=== PATIENT | female | born 1975 | race Caucasian/White ===

== ENCOUNTER 2018-02-20 03:53 | Inpatient (IN) | payer MEDICAID ==
[2018-02-20] MEDS ORDERED: Sodium Chloride 0.9% 1,000 ML IV ONE (04:30)
--- NOTE | 2018-02-20 04:38 | ED Physician Chart ---
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; pt denies Allergies:: Allergies Allergy/AdvReac Type Severity Reaction Status Date / Time aspirin Allergy Verified 02/20/18 04:12 diphenhydramine Allergy Verified 02/20/18 04:12 [From Benadryl] NSAIDS (Non-Steroidal Allergy Verified 02/20/18 04:12 Anti-Inflamma Vitals:: Vital Signs - 8 hr 02/20/18 03:55 Temp 97.9 F HR 68 RR 20 BP 146/95 O2 Sat % 99 Historian:: Patient, EMS Review:: Nurse's Note Reviewed, EMS run form Reviewed ED Review of Systems - Review of Systems General/Constitutional: No fever, No chills, No weight loss, No weakness, No diaphoresis, No edema, No loss of appetite Skin: No skin lesions, No rash, No bruising Head: No headache, No light-headedness Eyes: No loss of vision, No pain, No diplopia ENT: No earache, No nasal drainage, No sore throat, No tinnitus Neck: No neck pain, No swelling, No thyromegaly, No stiffness, No mass noted Cardio Vascular: No chest pain, No palpitations, No PND, No orthopnea, No edema Pulmonary: No SOB, No cough, No sputum, No wheezing GI: Nausea, Vomiting, Diarrhea, Pain, No melena, No hematochezia, No constipation, No hematemesis G/U: No dysuria, No frequency, No hematuria, No nacturia [employer]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: No vaginal discharge, Abnormal vaginal bleeding, No contraction Musculoskeletal: No bone or joint pain, No back pain, No muscle pain Endocrine: No polyuria, No polydipsia Psychiatric: No prior psych history, No depression, No anxiety, No suicidal ideation, No homicidal ideation, No auditory hallucination, No visual hallucination Hematopoietic: No bruising, No lymphadenopathy Allergic/Immuno: No urticaria, No angioedema Neurological: No syncope, No focal symptoms, No weakness, No paresthesia, No headache, No seizure, No dizziness, No confusion, No vertigo ED Past Medical History - Past Medical History Obtainable: Yes Past Medical History: Other (Endometriosis) Family History: HTN Social History: Non Smoker, No Alcohol, No Drug Use, Single, Homeless Surgical History: None Psychiatricy History: None Medication: Reviewed Family Medical History - Family Member Mother History Unknown: Yes ED Physical Exam - Physical Examination General/Constitutional: Awake, Well-developed, well-nourished, Alert, No distress, GCS 15, Non-toxic appearing, Ambulatory Head: Atraumatic Eyes: Lids, conjuctiva normal, PERRL, EOMI Skin: Nl inspection, No rash, No skin lesions, No ecchymosis, Well hydrated, No lymphadenopathy ENMT: External ears, nose nl, TM canals nl, Nasal exam nl, Lips, teeth, gums nl , Oropharynx nl, Tonsils nl Neck: Nontender, Full ROM w/o pain, No JVD, No nuchal rigidity, No bruit, No mass, No stridor Other Neck comments:: supple; no meningeal signs; no cervical tenderness; no bruits Respiratory: Nl effort/Exclusion, Clear to Auscultation, No Wheeze/Rhonchi/Rales Cardio Vascular: RRR, No murmur, gallop, rubs, NL S1 S2, Carotid/Femoral/Distal pulses equal bilaterally GI: No tenderness/rebounding/guarding, No organomegaly, No hernia, Normal BS's, Nondistended, No mass/bruits, No McBurney tenderness, Rectum exam nl Other GI comments:: no pulsatile masses : No CVA tenderness Extremities: No tenderness or effusion, Full ROM, normal strength in all extremities, No edema, Normal digits & nails Neuro/Psych: Alert/oriented, DTR's symmetric, Normal sensory exam, Normal motor strength, Judgement/insight normal, Mood normal, Normal gait, No focal deficits Misc: Normal back, No paraspinal tenderness ED Labs/Radiology/EKG Results - Lab Results Comments:: WBC: 2.0; HCG: Negative; LA: 2.0; H/H: + Anemia ED Septic Shock - . Is Septic Shock (SBP<90, OR Lactate>4 mmol\L) present?: No - <6hrs of presentation: Vital Signs: Vital Signs - 8 hr 02/20/18 03:55 Temp 97.9 F HR 68 RR 20 BP 146/95 O2 Sat % 99 ED Reassessment (Disposition) - Reassessment Reassessment Condition:: Improved - Diagnosis Diagnosis:: AGE; Dehydration; Sepsis; Anemia; Leukopenia; Gastroenteritis - Aftercare/Follow up Instructions Aftercare/Follow-Up Instructions:: Counseled pt regarding lab results/diagnosis & need follow up, Counseled pt & family regarding lab results/diagnosis & need follow up - Patient Disposition Discharge/Transfer:: Acute Care w/in this hosp Accepting Physician:: Dr. Razo Time Called:: [id number] Time Responded:: 05:50 Admitted to:: Med/Surg Spoke to:: Admitting Medical Physician:: Dr. Razo Condition at Disposition:: Stable, Improved
[2018-02-20 04:51] LABS: URINE MICROSCOPIC INDICATED? YES; URINE SOURCE CLEAN C
[2018-02-20 05:09] LABS: HEMATOCRIT 30.9 % (41.0-60); HEMOGLOBIN 10.2 gm/dL (12-16); MEAN CELL VOLUME 87.7 fl (81-100); MEAN CORPUSCULAR HEMOGLOBIN 28.9 pg (27.0-31.0); MEAN PLATELET VOLUME 5.9 fl; PLATELET COUNT 245 Th/cmm (150-400); RED BLOOD COUNT 3.52 Mil/cmm (3.80-5.10); RED CELL DISTRIBUTION WIDTH 16.6 % (11.5-20.0)
[2018-02-20 05:15] LABS: MANUAL DIFF REQUIRED? YES
[2018-02-20 05:17] LABS: AMYLASE SERUM 94 U/L (29-103); ANION GAP 18.4 (7.0-16.0); BUN - UREA NITROGEN 9 mg/dL (7-25); CALCIUM SERUM 9.4 mg/dL (8.6-10.3); CARBON DIOXIDE 24.2 mEq/L (21.0-31.0); CHLORIDE 99 mEq/L (98-107); CREATININE - SERUM 0.6 mg/dL (0.6-1.2); GFR AFRICAN-AMERICAN > 60.0 ml/min (>90); GFR NON AFRICAN-AMERICAN > 60.0 ml/min; GLUCOSE 107 mg/dL (70-105); LIPASE 82 U/L (11-82); POTASSIUM SERUM 3.6 mEq/L (3.5-5.1); SODIUM SERUM 138 mEq/L (136-145)
[2018-02-20 05:18] LABS: URINE BILIRUBIN NEGATIVE (NEGATIVE); URINE BLOOD NEGATIVE (NEGATIVE); URINE GLUCOSE (UA) NEGATIVE (NEGATIVE); URINE KETONE NEGATIVE (NEGATIVE); URINE LEUKOCYTE ESTERASE NEGATIVE (NEGATIVE); URINE NITRATE NEGATIVE (NEGATIVE); URINE PROTEIN TRACE mg/dL (NEGATIVE); URINE UROBILINOGEN 0.2 E.U./dL (0.2 - 1.0)
[2018-02-20 05:20] LABS: URINE CLARITY HAZY (CLEAR); URINE COLOR YELLOW; URINE RBC 0-2 /hpf (0-5)
[2018-02-20 05:21] LABS: URINE BACTERIA FEW /hpf (NONE SEEN); URINE EPITHELIAL CELLS FEW /lpf (FEW); URINE WBC 0-2 /hpf (0-5)
[2018-02-20 06:07] LABS: NEUTROPHILS 40 % (40-80); TOTAL CELLS COUNTED 100
[2018-02-20 06:08] LABS: EOSINOPHIL 4 % (0-5); LYMPHOCYTE 50 % (20-50); MONOCYTE 6 % (2-10)
[2018-02-20] MEDS ORDERED: cefTRIAXone 1 GM in Sodium Chloride 0.9% 50 ML IV ONE (06:22)
[2018-02-20] MEDS ORDERED: Morphine Sulfate 2 mg/mL 1mL Syr IV STA (06:26)
[2018-02-20] MEDS ORDERED: Morphine Sulfate 4 mg/mL 1mL Syr ONE (06:38)
--- NOTE | 2018-02-20 07:30 | Diagnostic Imaging Report ---
CHEST X-RAY: AP view INDICATION: Sepsis COMPARISON: None FINDINGS: There is mild elevation of right hemidiaphragm There is no focal consolidation or pleural effusions The heart is normal in size. The osseous structures demonstrate no acute abnormalities. IMPRESSION: No focal airspace consolidation identified.
--- NOTE | 2018-02-20 08:31 | Diagnostic Imaging Report ---
CT scan abdomen and pelvis without intravenous contrast HISTORY: Pain Total DLP equals 335 CTDI equals 6.9 Axial sections were obtained from the xiphoid process down to the pubic symphysis. The liver is enlarged. In addition, there is a decrease in overall hepatic parenchymal density consistent with fatty infiltration. The finding should be correlated with liver function tests. No focal lesions. The spleen appears normal. No focal abnormalities seen within the pancreas. No focal renal lesions are seen. Subcentimeter calcifications noted in the left paraspinal region. These appear to lie outside of the urinary tract. Again, no definite hydronephrosis. If needed a CT scan following administration of intravenous contrast via additional assessment of the relationship of the small calcifications to the left ureter. The exam of the pelvis demonstrates preservation of normal fat planes. Evaluation somewhat limited due to the absence of oral/bowel contrast. Poor delineation of the bowel wall margins. No definite abnormal soft tissue masses or abnormal fluid collections. IMPRESSION: 1. Hepatomegaly along with changes consistent with fatty infiltration. The finding should be correlated with liver function tests 2. 2 subcentimeter calcifications in the left paraspinal region. These appear to be in close proximity to the left ureter. However, as there is no hydronephrosis, these are probably vascular. If needed, a CT scan with intravenous contrast would provide additional assessment of the relationship of the calcifications to the left ureter.
[2018-02-20] MEDS ORDERED: Morphine Sulfate 4 mg/mL 1mL Syr IVP PRN (09:10)
[2018-02-20] MEDS: D5-0.45NS 1,000 ML IV SCH ×2 (10:30→21:17)
[2018-02-20] MEDS: Morphine Sulfate 4 mg/mL 1mL Syr IVP PRN ×2 (10:49→21:14)
[2018-02-20] MEDS: Morphine Sulfate 4 mg/mL 1mL Syr IV PRN (14:01)
[2018-02-20 14:07] LABS: AMPHETAMINE URINE NEGATIVE (NEGATIVE); BARBITURATES URINE NEGATIVE (NEGATIVE); BENZODIAZEPINES QUAL URINE NEGATIVE (NEGATIVE); CANNABINOID THC NEGATIVE (NEGATIVE); COCAINE METABOLITE QUAL URINE NEGATIVE (NEGATIVE); METHADONE URINE NEGATIVE (NEGATIVE); METHAMPHETAMINES QUAL URINE NEGATIVE (NEGATIVE); OPIATES (MORPHINE) QUAL. URINE POSITIVE (NEGATIVE); PHENCYCLIDINE (PCP) URINE NEGATIVE (NEGATIVE); TRICYCLICS (TCA) QUAL. URINE NEGATIVE (NEGATIVE)
[2018-02-20] MEDS: CALAMINE TP PRN ×2 (16:59→21:17)
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
--- NOTE | 2018-02-20 18:26 | Consultation ---
Consult Note - Consult Note Service Date: 02/20/18 Referring Physician: Tomasa Razo Consult Note: PHYSICIAN Consultation Note: Date of Admission: 02/20/18 Purpose of Consultation: Chief Complaint: Patient MACARIO GARRIDO was admitted to location Medical/Surgical Unit I with SEVERE GASTROENTERITIS,LEUKOPENIA,SEPSIS. History of Present Illness: 42 year old female with history of cirrhosis, homelessness, admitted for abdominal pain. Past Medical History: Cirrhosis. Allergies Allergy/AdvReac Type Severity Reaction Status Date / Time aspirin Allergy Verified 02/20/18 04:12 diphenhydramine Allergy Verified 02/20/18 04:12 [From Benadryl] NSAIDS (Non-Steroidal Allergy Verified 02/20/18 04:12 Anti-Inflamma Vital Signs Temp 97.8 F 02/20/18 12:33 Pulse 84 02/20/18 12:33 Resp 18 02/20/18 12:33 BP 147/92 02/20/18 12:33 Pulse Ox 100 02/20/18 12:33 Laboratory Results - last 24 hr 02/20/18 02/20/18 02/20/18 07:15 10:40 11:20 Whole Bld Lactic Acid 2.19 H* Urine Opiates Screen POSITIVE H Urine Methadone Screen NEGATIVE Ur Barbiturates Screen NEGATIVE Ur Tricyclics Screen NEGATIVE Ur Phencyclidine Scrn NEGATIVE Amphetamines Screen NEGATIVE U Methamphetamines Scrn NEGATIVE U Benzodiazepines Scrn NEGATIVE U Cocaine Metab Screen NEGATIVE U Cannabinoids Screen NEGATIVE Ethyl Alcohol 102 H Home Medication Medication Instructions Recorded Type NK [No Home Meds] 02/20/18 History Current Medications Generic Name Dose Route Start Last Admin Trade Name Freq PRN Reason Stop Dose Admin Calamine 1 appl 02/20/18 16:44 02/20/18 16:59 Calamine TP 04/21/18 16:43 1 appl Q4HR PRN Administration Itching Hydroxyzine HCl 20 mg 02/20/18 12:48 02/20/18 14:01 Atarax PO 04/21/18 12:47 20 mg Q8H PRN Administration Itching Protocol Ceftriaxone Sodium 1 gm/ 50 mls @ 100 mls/hr 02/21/18 06:00 Sodium Chloride IV 04/22/18 05:59 Q24H YRN Dextrose/Sodium Chloride 1,000 mls @ 125 mls/hr 02/20/18 09:15 02/20/18 10:30 D5-0.45ns IV 04/21/18 09:14 125 mls/hr .Q8H YRN Administration Lorazepam 1 mg 02/20/18 13:26 02/20/18 16:16 Ativan IVP 04/21/18 13:25 1 mg Q4HR PRN Administration Anxiety Protocol Morphine Sulfate 1 mg 02/20/18 09:11 02/20/18 10:49 Morphine IVP 04/21/18 09:10 1 mg Q3H PRN Administration MODERATE PAIN Morphine Sulfate 4 mg 02/20/18 13:25 02/20/18 14:01 Morphine IV 04/21/18 13:24 4 mg Q6HR PRN Administration Severe Pain Ondansetron HCl 4 mg 02/20/18 09:14 02/20/18 10:52 Zofran IV 04/21/18 09:13 4 mg Q6H PRN Administration Nausea / Vomiting Review of Systems: A 12 point ROS was reviewed with the pertinent positive and negatives noted in the HPI. Social History Smoking Status Never smoker Drug Use No Alcohol Use yes Family Medical History Physical Exam: General: comfortable, not in distress. HEENT: Head: normocephalic, atraumatic. oral cavity moist pink tongue, eyes: pallor is present. Neck: Supple, no JVD, no carotid bruit. Cardio: S1, S2 wnl. Respiratory: VESICUALR BREATH SOUNDS. Abdominal: Soft NT ND BS present. Genital/Urinary: Extremities: NCCE. Neurological: AAOx3 Assessment: 1. Neutropenia. 2. Anemia. 3. Cirrhosis. Plan: Will continue same treatment. Patient refused blood transfusion. Signed, Harman Gunderson M.D. [id number]
[2018-02-21] MEDS: Morphine Sulfate 4 mg/mL 1mL Syr IV PRN ×2 (03:31→19:57)
[2018-02-21] MEDS: CALAMINE TP PRN (03:33)
[2018-02-21] MEDS: cefTRIAXone 1 GM in Sodium Chloride 0.9% 50 ML IV SCH (06:03)
[2018-02-21] MEDS: D5-0.45NS 1,000 ML IV SCH ×3 (06:03→19:56)
[2018-02-21 06:25] LABS: HEMATOCRIT 30.3 % (41.0-60); HEMOGLOBIN 9.7 gm/dL (12-16); MANUAL DIFF REQUIRED? YES; MEAN CELL VOLUME 87.6 fl (81-100); MEAN PLATELET VOLUME 6.1 fl; PLATELET COUNT 201 Th/cmm (150-400); RED BLOOD COUNT 3.46 Mil/cmm (3.80-5.10)
[2018-02-21 06:34] LABS: WHITE BLOOD COUNT 2.2 Th/cmm (4.8-10.8)
[2018-02-21 06:40] LABS: ALB/GLOB RATIO 1.4 (1.0-1.8); ALBUMIN 3.8 gm/dL (3.7-5.3); ALKALINE PHOSPHATASE 62 U/L (34-104); ANION GAP 11.1 (7.0-16.0); BILIRUBIN,TOTAL 0.5 mg/dL (0.3-1.0); BUN - UREA NITROGEN 6 mg/dL (7-25); CALCIUM SERUM 9.3 mg/dL (8.6-10.3); CARBON DIOXIDE 28.9 mEq/L (21.0-31.0); CHLORIDE 98 mEq/L (98-107); CREATININE - SERUM 0.7 mg/dL (0.6-1.2); GFR AFRICAN-AMERICAN > 60.0 ml/min (>90); GFR NON AFRICAN-AMERICAN > 60.0 ml/min; GLUCOSE 97 mg/dL (70-105); LIPASE 59 U/L (11-82); SGOT 78 U/L (13-39); SGPT/ALT 29 U/L (7-52); SODIUM SERUM 134 mEq/L (136-145); TOTAL PROTEIN,SERUM 6.6 gm/dL (6.0-8.3)
[2018-02-21 06:53] LABS: BILIRUBIN,DIRECT 0.09 mg/dL (0.0-0.2)
[2018-02-21 07:19] LABS: BAND NEUTROPHILE 0 % (0-10); NEUTROPHILS 30 % (40-80); TOTAL CELLS COUNTED 100
[2018-02-21 07:20] LABS: ATYPICAL LYMPH 4 %; BASOPHIL 0 % (0-3); EOSINOPHIL 2 % (0-5); LYMPHOCYTE 50 % (20-50); MONOCYTE 14 % (2-10)
[2018-02-21 13:09] LABS: HEP A AB IGM Negative (Negative); HEP B CORE IGM Negative (Negative); HEP B SURFACE AG QL Negative (Negative); HEP C ANTIBODY <0.1 s/co ratio (0.0-0.9)
--- NOTE | 2018-02-21 13:11 | History & Physical ---
ADMIT DATE: 02/20/2018 HISTORY OF PRESENT ILLNESS: The patient came to the Emergency Room complaining of intermittent, diffuse, crampy abdominal pain, nausea, vomiting, and diarrhea for the last 10 days. The patient denies any history of trauma, any history of neck pain, chest pain, etc. The patient has no other problem. The patient last menstruation was 02/07/2018. The patient is a poor historian. REVIEW OF SYSTEMS: No fever, no chills, no rigors. The patient mainly has nausea, vomiting, diarrhea and the patient has no bony pain, etc. The patient has no syncope. PAST MEDICAL HISTORY: History of hypertension, otherwise negative. PHYSICAL EXAMINATION: GENERAL: The patient is awake, alert, not in acute distress, seems to be slightly dehydrated. HEAD: Normal. ENT: Normal. LUNGS: Clear. CARDIOVASCULAR SYSTEM: S1, S2 heard. ABDOMEN: Soft. Bowel sounds are heard. CENTRAL NERVOUS SYSTEM: Grossly normal. LABORATORY AND DIAGNOSTIC DATA: White count is low, actually 2.0 and the patient's blood count was low indicating anemia. DIAGNOSES: Acute and severe gastroenteritis, dehydration, , leukopenia, cirrhosis of the liver. PLAN: The patient is being admitted and I will go ahead and get GI doctor see the patient as well as I will have Dr. Harman Gunderson see the patient and I will follow the patient. I will also have Dr. Orellana see the patient. JOB# [id number]
[2018-02-21] MEDS: Nystatin Cream 100,000 u/gm Cream 15 gm TP SCH (14:06)
[2018-02-21] MEDS: Morphine Sulfate 4 mg/mL 1mL Syr IVP PRN (14:13)
--- NOTE | 2018-02-21 19:27 | Infectious Disease Prog Note ---
Infectious Disease Subjective - Review of Systems Service Date: 02/21/18 Events since last encounter: No new change, no fever. Subjective: No fever. Infectious Disease Objective - Results Result Diagrams: 02/24/18 05:45 02/23/18 05:15 Recent Labs: Laboratory Last Values WBC 2.2 Th/cmm (4.8-10.8) L* 02/21/18 06:02 RBC 3.46 Mil/cmm (3.80-5.10) L 02/21/18 06:02 Hgb 9.7 gm/dL (12-16) L 02/21/18 06:02 Hct 30.3 % (41.0-60) L 02/21/18 06:02 MCV 87.6 fl (81-100) 02/21/18 06:02 MCH 28.0 pg (27.0-31.0) 02/21/18 06:02 MCHC Differential 32.0 pg (28.0-36.0) 02/21/18 06:02 RDW 16.0 % (11.5-20.0) 02/21/18 06:02 Plt Count 201 Th/cmm (150-400) 02/21/18 06:02 MPV 6.1 fl 02/21/18 06:02 Band Neutrophils % 0 % (0-10) 02/21/18 06:02 Neutrophils (Manual) 30 % (40-80) L 02/21/18 06:02 Lymphocytes 50 % (20-50) 02/21/18 06:02 Monocytes 14 % (2-10) H 02/21/18 06:02 Eosinophils 2 % (0-5) 02/21/18 06:02 Basophils 0 % (0-3) 02/21/18 06:02 Atypical Lymphocytes 4 % 02/21/18 06:02 Sodium 134 mEq/L (136-145) L 02/21/18 06:02 Potassium 4.0 mEq/L (3.5-5.1) 02/21/18 06:02 Chloride 98 mEq/L (98-107) 02/21/18 06:02 Carbon Dioxide 28.9 mEq/L (21.0-31.0) 02/21/18 06:02 Anion Gap 11.1 (7.0-16.0) 02/21/18 06:02 BUN 6 mg/dL (7-25) L 02/21/18 06:02 Creatinine 0.7 mg/dL (0.6-1.2) 02/21/18 06:02 Est GFR ( Amer) > 60.0 ml/min (>90) 02/21/18 06:02 Est GFR (Non-Af Amer) > 60.0 ml/min 02/21/18 06:02 BUN/Creatinine Ratio 8.6 02/21/18 06:02 Glucose 97 mg/dL (70-105) 02/21/18 06:02 Whole Bld Lactic Acid 2.19 mmol/L (0.60-1.99) H* 02/20/18 07:15 Calcium 9.3 mg/dL (8.6-10.3) 02/21/18 06:02 Total Bilirubin 0.5 mg/dL (0.3-1.0) 02/21/18 06:02 Direct Bilirubin 0.09 mg/dL (0.0-0.2) 02/21/18 06:02 AST 78 U/L (13-39) H 02/21/18 06:02 ALT 29 U/L (7-52) 02/21/18 06:02 Alkaline Phosphatase 62 U/L (34-104) 02/21/18 06:02 Total Protein 6.6 gm/dL (6.0-8.3) 02/21/18 06:02 Albumin 3.8 gm/dL (3.7-5.3) 02/21/18 06:02 Globulin 2.8 gm/dL 02/21/18 06:02 Albumin/Globulin Ratio 1.4 (1.0-1.8) 02/21/18 06:02 Amylase 94 U/L (29-103) 02/20/18 04:40 Lipase 59 U/L (11-82) 02/21/18 06:02 Serum , Qual NEGATIVE (NEGATIVE) 02/20/18 04:40 Urine Source CLEAN C 02/20/18 04:00 Urine Color YELLOW 02/20/18 04:00 Urine Clarity HAZY (CLEAR) 02/20/18 04:00 Urine pH 6.0 (4.6 - 8.0) 02/20/18 04:00 Ur Specific [place] >= 1.030 (1.005-1.030) 02/20/18 04:00 Urine Protein TRACE mg/dL (NEGATIVE) 02/20/18 04:00 Urine Glucose (UA) NEGATIVE mg/dL (NEGATIVE) 02/20/18 04:00 Urine Ketones NEGATIVE mg/dL (NEGATIVE) 02/20/18 04:00 Urine Blood NEGATIVE (NEGATIVE) 02/20/18 04:00 Urine Nitrate NEGATIVE (NEGATIVE) 02/20/18 04:00 Urine Bilirubin NEGATIVE (NEGATIVE) 02/20/18 04:00 Urine Urobilinogen 0.2 E.U./dL (0.2 - 1.0) 02/20/18 04:00 Ur Leukocyte Esterase NEGATIVE (NEGATIVE) 02/20/18 04:00 Urine RBC 0-2 /hpf (0-5) 02/20/18 04:00 Urine WBC 0-2 /hpf (0-5) 02/20/18 04:00 Ur Epithelial Cells FEW /lpf (FEW) 02/20/18 04:00 Calcium Oxalate Crystal MANY /hpf 02/20/18 04:00 Urine Bacteria FEW /hpf (NONE SEEN) 02/20/18 04:00 Urine Opiates Screen POSITIVE (NEGATIVE) H 02/20/18 11:20 Urine Methadone Screen NEGATIVE (NEGATIVE) 02/20/18 11:20 Ur Barbiturates Screen NEGATIVE (NEGATIVE) 02/20/18 11:20 Ur Tricyclics Screen NEGATIVE (NEGATIVE) 02/20/18 11:20 Ur Phencyclidine Scrn NEGATIVE (NEGATIVE) 02/20/18 11:20 Amphetamines Screen NEGATIVE (NEGATIVE) 02/20/18 11:20 U Methamphetamines Scrn NEGATIVE (NEGATIVE) 02/20/18 11:20 U Benzodiazepines Scrn NEGATIVE (NEGATIVE) 02/20/18 11:20 U Cocaine Metab Screen NEGATIVE (NEGATIVE) 02/20/18 11:20 U Cannabinoids Screen NEGATIVE (NEGATIVE) 02/20/18 11:20 Ethyl Alcohol 102 mg/dL (0-10) H 02/20/18 10:40 RPR NONREACTIVE (NONREACTIVE) 02/20/18 10:40 Hepatitis A IgM Ab Negative (Negative) 02/20/18 10:40 Hep Bs Antigen Negative (Negative) 02/20/18 10:40 Hep B Core IgM Ab Negative (Negative) 02/20/18 10:40 Hepatitis C Antibody <0.1 s/co ratio (0.0-0.9) 02/20/18 10:40 HIV 1&2 Antibody Screen NEGATIVE (NEG) 02/20/18 04:40 - Physical Exam Vitals and I&O: Vital Signs Temp 98.8 F 02/21/18 16:00 Pulse 85 02/21/18 16:00 Resp 18 02/21/18 16:00 BP 143/89 02/21/18 16:00 Pulse Ox 100 02/21/18 12:34 Intake & Output 02/21/18 02/21/18 02/22/18 06:59 18:59 06:59 Intake Total 1000 1000 Balance 1000 1000 Weight (lbs) 55.338 kg Intake: Intake, IV Amount 1000 1000 D5-0.45NS 1,000 ml @ 125 1000 1000 mls/hr IV .Q8H YRN Rx#: [id number] Other: Weight Source Patient stated Active Medications: Current Medications Alprazolam (Xanax) 0.25 mg PO Q6HR PRN; Protocol PRN Reason: Anxiety Stop: 04/21/18 18:23 Calamine (Calamine) 1 appl TP Q4HR PRN PRN Reason: Itching Stop: 04/21/18 16:43 Last Admin: 02/21/18 03:33 Dose: 1 appl Hydroxyzine HCl (Atarax) 20 mg PO Q8H PRN; Protocol PRN Reason: Itching Stop: 04/21/18 12:47 Last Admin: 02/21/18 00:45 Dose: 20 mg Ceftriaxone Sodium 1 gm/ (Sodium Chloride) 50 mls @ 100 mls/hr IV Q24H YRN Stop: 04/22/18 05:59 Last Admin: 02/21/18 06:03 Dose: 100 mls/hr Dextrose/Sodium Chloride (D5-0.45ns) 1,000 mls @ 125 mls/hr IV .Q8H YRN Stop: 04/21/18 09:14 Last Admin: 02/21/18 14:06 Dose: 125 mls/hr Lorazepam (Ativan) 1 mg IVP Q4HR PRN; Protocol PRN Reason: Anxiety Stop: 04/21/18 13:25 Last Admin: 02/21/18 00:53 Dose: 1 mg Morphine Sulfate (Morphine) 1 mg IVP Q3H PRN PRN Reason: MODERATE PAIN Stop: 04/21/18 09:10 Last Admin: 02/21/18 14:13 Dose: 1 mg Morphine Sulfate (Morphine) 4 mg IV Q6HR PRN PRN Reason: Severe Pain Stop: 04/21/18 13:24 Last Admin: 02/21/18 03:31 Dose: 4 mg Nystatin (Mycostatin Cream) 1 appl TP DAILY YRN Stop: 04/22/18 08:59 Last Admin: 02/21/18 14:06 Dose: 1 appl Ondansetron HCl (Zofran) 4 mg IV Q6H PRN PRN Reason: Nausea / Vomiting Stop: 04/21/18 09:13 Last Admin: 02/21/18 14:05 Dose: 4 mg General: no acute distress, well developed, well nourished HEENT: atraumatic, normocephalic, PERRLA Neck: supple, no thyromegaly Cardiovascular: S1S2, regular Lungs: clear to auscultation bilaterally, clear to percussion Abdomen: soft, no tender, no distended Extremities: no cyanosis, no clubbing, no edema Neurological: awake, alert, oriented Infectious Disease Assmt/Plan - Assessment Assessment: 1. Neutropenia. 2. Anemia. 3. Cirrhosis. - Plan Plan: CPM Nutritional Asmnt/Malnutr-PDOC - Dietary Evaluation Malnutrition Findings (Please click <Entered> for more info): Nutritional Asmnt/Malnutrition Start: 02/20/18 15: 00 Text: Status: Complete Freq: Document 02/20/18 15:00 JOLEEN (Rec: 02/20/18 15:19 [facility]) Nutritional Asmnt/Malnutrition Patient General Information Nutritional Screening High Risk Diagnosis severe gastroenteritis, leukopenia, sepsis Pertinent Medical Hx/Surgical Hx HTN Subjective Information Pt seen sitting on bed at time of visit, awake and alert. Pt reported she had diffulculty of taking down food. She tried to consumed half of lunch tray. Pt reported some N/V after taking food. Pt has concern of nutrition intake. Offered pt Boost per pt request in the afternoon. Current Diet Order/ Nutrition Support [facility] chopped Pertinent Medications D5-0.45ns, zofran Pertinent Labs 02/20 glucose 107 Nutritional Hx/Data Height 1.68 m Height (Calculated Centimeters) 167.6 Current Weight (lbs) 55.338 kg Weight (Calculated Kilograms) 55.3 Weight (Calculated Grams) 70691.3 [place] Body Weight 130 Body Mass Index (BMI) 19.7 Weight Status Approriate GI Symptoms GI Symptoms Nausea Vomitting Last BM no record Difficult in: None Skin Integrity/Comment: facial abrasion and scars Current %PO Poor (25-49%) Estimated Nutritional Goals BEE in Kcals: Using Current wt Calories/Kcals/Kg 25-30 Kcals Calculated [id number] Protein: Using Current wt Protein g/k-1.2 Protein Calculated 55-66 Fluid: ml 1375-1650ml (1ml/kcal) Nutritional Problem 1. Problem Problem inadequate food intake Etiology N/V Signs/Symptoms: PO intake <=50% Malnutrition Alert Protein-Calorie Malnutrition N/A Is there a minimum of two criteria No selected? Query Text:Check all the applicable criteria. A minimum of two criteria are recommended for diagnosis of either severe or non-severe malnutrition. Intervention/Recommendation Comments 1. Continue with current diet as ordered. If pt likes boost, will continue sending with meal tray. 2. Monitor PO intake, wt, labs and skin integrity 3. F/U as high risk in 2-3 days, 02/22-02/23 Expected Outcomes/Goals Expected Outcomes/Goals 1. PO intake to meet at least 75% of nutritional needs. 2. Wt stability, skin to heal, improved GI function, labs to approach WNL.
[2018-02-22] MEDS: Morphine Sulfate 4 mg/mL 1mL Syr IVP PRN ×2 (02:47→10:07)
[2018-02-22] MEDS: cefTRIAXone 1 GM in Sodium Chloride 0.9% 50 ML IV SCH (06:07)
[2018-02-22] MEDS: D5-0.45NS 1,000 ML IV SCH ×2 (06:08→17:54)
[2018-02-22 08:14] LABS: HEMOGLOBIN 10.4 gm/dL (12-16); MANUAL DIFF REQUIRED? YES; MEAN CELL VOLUME 87.5 fl (81-100); MEAN CORPUSCULAR HEMOGLOBIN 29.3 pg (27.0-31.0); MEAN CORPUSCULAR HGB CONC 33.5 pg (28.0-36.0); MEAN PLATELET VOLUME 6.4 fl; PLATELET COUNT 217 Th/cmm (150-400); RED BLOOD COUNT 3.55 Mil/cmm (3.80-5.10); RED CELL DISTRIBUTION WIDTH 15.6 % (11.5-20.0)
[2018-02-22 08:17] LABS: WHITE BLOOD COUNT 2.3 Th/cmm (4.8-10.8)
[2018-02-22 08:33] LABS: ANION GAP 10.6 (7.0-16.0); BUN - UREA NITROGEN 9 mg/dL (7-25); CALCIUM SERUM 9.1 mg/dL (8.6-10.3); CARBON DIOXIDE 28.8 mEq/L (21.0-31.0); CHLORIDE 100 mEq/L (98-107); CREATININE - SERUM 0.8 mg/dL (0.6-1.2); GFR AFRICAN-AMERICAN > 60.0 ml/min (>90); GFR NON AFRICAN-AMERICAN > 60.0 ml/min; GLUCOSE 109 mg/dL (70-105); POTASSIUM SERUM 4.4 mEq/L (3.5-5.1); SODIUM SERUM 135 mEq/L (136-145)
[2018-02-22 08:40] LABS: BAND NEUTROPHILE 2 % (0-10); BASOPHIL 0 % (0-3); EOSINOPHIL 2 % (0-5); LYMPHOCYTE 48 % (20-50); MONOCYTE 10 % (2-10); NEUTROPHILS 38 % (40-80); TOTAL CELLS COUNTED 100
--- NOTE | 2018-02-22 09:37 | Diagnostic Imaging Report ---
Abdominal ultrasound HISTORY: Nausea/vomiting The liver appears enlarged. There is an increase in overall hepatic parenchymal echogenicity. The finding may be associated with fatty infiltration and should be correlated with liver function tests. No focal lesions. There is an elongated gallbladder. No definite intraluminal abnormalities are seen. Cystic, no definite calculi. No biliary dilatation. Pancreas not well seen due to bowel gas. No focal renal lesions or hydronephrosis. The spleen is normal in size. No other retroperitoneal or intra-abdominal abnormalities. IMPRESSION: 1. Hepatomegaly along with parenchymal changes suggesting fatty infiltration. The findings should be correlated with liver function tests 2. No other definite abnormalities
[2018-02-22] MEDS: Nystatin Cream 100,000 u/gm Cream 15 gm TP SCH (10:07)
--- NOTE | 2018-02-22 12:15 | General Progress Note ---
Subjective - Review of Systems Events since last encounter: patient in no acute distress Objective - Results Result Diagrams: 02/22/18 07:55 02/22/18 07:55 Recent Labs: Laboratory Last Values WBC 2.3 Th/cmm (4.8-10.8) L* 02/22/18 07:55 RBC 3.55 Mil/cmm (3.80-5.10) L 02/22/18 07:55 Hgb 10.4 gm/dL (12-16) L 02/22/18 07:55 Hct 31.0 % (41.0-60) L 02/22/18 07:55 MCV 87.5 fl (81-100) 02/22/18 07:55 MCH 29.3 pg (27.0-31.0) 02/22/18 07:55 MCHC Differential 33.5 pg (28.0-36.0) 02/22/18 07:55 RDW 15.6 % (11.5-20.0) 02/22/18 07:55 Plt Count 217 Th/cmm (150-400) 02/22/18 07:55 MPV 6.4 fl 02/22/18 07:55 Band Neutrophils % 2 % (0-10) 02/22/18 07:55 Neutrophils (Manual) 38 % (40-80) L 02/22/18 07:55 Lymphocytes 48 % (20-50) 02/22/18 07:55 Monocytes 10 % (2-10) 02/22/18 07:55 Eosinophils 2 % (0-5) 02/22/18 07:55 Basophils 0 % (0-3) 02/22/18 07:55 Atypical Lymphocytes 4 % 02/21/18 06:02 Sodium 135 mEq/L (136-145) L 02/22/18 07:55 Potassium 4.4 mEq/L (3.5-5.1) 02/22/18 07:55 Chloride 100 mEq/L (98-107) 02/22/18 07:55 Carbon Dioxide 28.8 mEq/L (21.0-31.0) 02/22/18 07:55 Anion Gap 10.6 (7.0-16.0) 02/22/18 07:55 BUN 9 mg/dL (7-25) 02/22/18 07:55 Creatinine 0.8 mg/dL (0.6-1.2) 02/22/18 07:55 Est GFR ( Amer) > 60.0 ml/min (>90) 02/22/18 07:55 Est GFR (Non-Af Amer) > 60.0 ml/min 02/22/18 07:55 BUN/Creatinine Ratio 11.3 02/22/18 07:55 Glucose 109 mg/dL (70-105) H 02/22/18 07:55 Whole Bld Lactic Acid 2.19 mmol/L (0.60-1.99) H* 02/20/18 07:15 Calcium 9.1 mg/dL (8.6-10.3) 02/22/18 07:55 Total Bilirubin 0.5 mg/dL (0.3-1.0) 02/21/18 06:02 Direct Bilirubin 0.09 mg/dL (0.0-0.2) 02/21/18 06:02 AST 78 U/L (13-39) H 02/21/18 06:02 ALT 29 U/L (7-52) 02/21/18 06:02 Alkaline Phosphatase 62 U/L (34-104) 02/21/18 06:02 Total Protein 6.6 gm/dL (6.0-8.3) 02/21/18 06:02 Albumin 3.8 gm/dL (3.7-5.3) 02/21/18 06:02 Globulin 2.8 gm/dL 02/21/18 06:02 Albumin/Globulin Ratio 1.4 (1.0-1.8) 02/21/18 06:02 Amylase 94 U/L (29-103) 02/20/18 04:40 Lipase 59 U/L (11-82) 02/21/18 06:02 Serum , Qual NEGATIVE (NEGATIVE) 02/20/18 04:40 Urine Source CLEAN C 02/20/18 04:00 Urine Color YELLOW 02/20/18 04:00 Urine Clarity HAZY (CLEAR) 02/20/18 04:00 Urine pH 6.0 (4.6 - 8.0) 02/20/18 04:00 Ur Specific [place] >= 1.030 (1.005-1.030) 02/20/18 04:00 Urine Protein TRACE mg/dL (NEGATIVE) 02/20/18 04:00 Urine Glucose (UA) NEGATIVE mg/dL (NEGATIVE) 02/20/18 04:00 Urine Ketones NEGATIVE mg/dL (NEGATIVE) 02/20/18 04:00 Urine Blood NEGATIVE (NEGATIVE) 02/20/18 04:00 Urine Nitrate NEGATIVE (NEGATIVE) 02/20/18 04:00 Urine Bilirubin NEGATIVE (NEGATIVE) 02/20/18 04:00 Urine Urobilinogen 0.2 E.U./dL (0.2 - 1.0) 02/20/18 04:00 Ur Leukocyte Esterase NEGATIVE (NEGATIVE) 02/20/18 04:00 Urine RBC 0-2 /hpf (0-5) 02/20/18 04:00 Urine WBC 0-2 /hpf (0-5) 02/20/18 04:00 Ur Epithelial Cells FEW /lpf (FEW) 02/20/18 04:00 Calcium Oxalate Crystal MANY /hpf 02/20/18 04:00 Urine Bacteria FEW /hpf (NONE SEEN) 02/20/18 04:00 Urine Opiates Screen POSITIVE (NEGATIVE) H 02/20/18 11:20 Urine Methadone Screen NEGATIVE (NEGATIVE) 02/20/18 11:20 Ur Barbiturates Screen NEGATIVE (NEGATIVE) 02/20/18 11:20 Ur Tricyclics Screen NEGATIVE (NEGATIVE) 02/20/18 11:20 Ur Phencyclidine Scrn NEGATIVE (NEGATIVE) 02/20/18 11:20 Amphetamines Screen NEGATIVE (NEGATIVE) 02/20/18 11:20 U Methamphetamines Scrn NEGATIVE (NEGATIVE) 02/20/18 11:20 U Benzodiazepines Scrn NEGATIVE (NEGATIVE) 02/20/18 11:20 U Cocaine Metab Screen NEGATIVE (NEGATIVE) 02/20/18 11:20 U Cannabinoids Screen NEGATIVE (NEGATIVE) 02/20/18 11:20 Ethyl Alcohol 102 mg/dL (0-10) H 02/20/18 10:40 RPR NONREACTIVE (NONREACTIVE) 02/20/18 10:40 Hepatitis A IgM Ab Negative (Negative) 02/20/18 10:40 Hep Bs Antigen Negative (Negative) 02/20/18 10:40 Hep B Core IgM Ab Negative (Negative) 02/20/18 10:40 Hepatitis C Antibody <0.1 s/co ratio (0.0-0.9) 02/20/18 10:40 HIV 1&2 Antibody Screen NEGATIVE (NEG) 02/20/18 04:40 - Physical Exam Vitals and I&O: Vital Signs Temp 98.3 F 02/22/18 08:00 Pulse 71 02/22/18 08:00 Resp 20 02/22/18 08:00 BP 135/82 02/22/18 08:00 Pulse Ox 96 02/22/18 08:00 Intake & Output 02/21/18 02/22/18 02/22/18 18:59 06:59 18:59 Intake Total 1000 2229.167 Output Total 4 Balance 1000 2225.167 Weight (lbs) 55.338 kg 55.338 kg Intake: Intake, IV Amount 1000 1729.167 D5-0.45NS 1,000 ml @ 125 1000 1729.167 mls/hr IV .Q8H YRN Rx#: [id number] Oral 500 Output: Urine 4 Other: # Bowel Movements 1 Weight Source Patient stated Bedscale Active Medications: Current Medications Alprazolam (Xanax) 0.25 mg PO Q6HR PRN; Protocol PRN Reason: Anxiety Stop: 04/21/18 18:23 Calamine (Calamine) 1 appl TP Q4HR PRN PRN Reason: Itching Stop: 04/21/18 16:43 Last Admin: 02/21/18 03:33 Dose: 1 appl Dicyclomine HCl (Bentyl) 20 mg PO BID YRN Stop: 04/23/18 16:59 Hydroxyzine HCl (Atarax) 20 mg PO Q8H PRN; Protocol PRN Reason: Itching Stop: 04/21/18 12:47 Last Admin: 02/22/18 06:07 Dose: 20 mg Ceftriaxone Sodium 1 gm/ (Sodium Chloride) 50 mls @ 100 mls/hr IV Q24H YRN Stop: 04/22/18 05:59 Last Admin: 02/22/18 06:07 Dose: 100 mls/hr Dextrose/Sodium Chloride (D5-0.45ns) 1,000 mls @ 125 mls/hr IV .Q8H YRN Stop: 04/21/18 09:14 Last Admin: 02/22/18 06:08 Dose: 125 mls/hr Lorazepam (Ativan) 1 mg IVP Q4HR PRN; Protocol PRN Reason: Anxiety Stop: 04/21/18 13:25 Last Admin: 02/22/18 06:05 Dose: 1 mg Morphine Sulfate (Morphine) 1 mg IVP Q3H PRN PRN Reason: MODERATE PAIN Stop: 04/21/18 09:10 Last Admin: 02/22/18 10:07 Dose: 1 mg Morphine Sulfate (Morphine) 4 mg IV Q6HR PRN PRN Reason: Severe Pain Stop: 04/21/18 13:24 Last Admin: 02/21/18 19:57 Dose: 4 mg Nystatin (Mycostatin Cream) 1 appl TP DAILY YRN Stop: 04/22/18 08:59 Last Admin: 02/22/18 10:07 Dose: 1 appl Ondansetron HCl (Zofran) 4 mg IV Q6H PRN PRN Reason: Nausea / Vomiting Stop: 04/21/18 09:13 Last Admin: 02/22/18 10:04 Dose: 4 mg Nutritional Asmnt/Malnutr-PDOC - Dietary Evaluation Malnutrition Findings (Please click <Entered> for more info): Nutritional Asmnt/Malnutrition Start: 02/20/18 15: 00 Text: Status: Complete Freq: Document 02/20/18 15:00 [facility] (Rec: 02/20/18 15:19 [email or web address] [email or web address]) Nutritional Asmnt/Malnutrition Patient General Information Nutritional Screening High Risk Diagnosis severe gastroenteritis, leukopenia, sepsis Pertinent Medical Hx/Surgical Hx HTN Subjective Information Pt seen sitting on bed at time of visit, awake and alert. Pt reported she had diffulculty of taking down food. She tried to consumed half of lunch tray. Pt reported some N/V after taking food. Pt has concern of nutrition intake. Offered pt Boost per pt request in the afternoon. Current Diet Order/ Nutrition Support [facility] chopped Pertinent Medications D5-0.45ns, zofran Pertinent Labs 02/20 glucose 107 Nutritional Hx/Data Height 1.68 m Height (Calculated Centimeters) 167.6 Current Weight (lbs) 55.338 kg Weight (Calculated Kilograms) 55.3 Weight (Calculated Grams) 96967.3 [place] Body Weight 130 Body Mass Index (BMI) 19.7 Weight Status Approriate GI Symptoms GI Symptoms Nausea Vomitting Last BM no record Difficult in: None Skin Integrity/Comment: facial abrasion and scars Current %PO Poor (25-49%) Estimated Nutritional Goals BEE in Kcals: Using Current wt Calories/Kcals/Kg 25-30 Kcals Calculated 2913-2178 Protein: Using Current wt Protein g/k-1.2 Protein Calculated 55-66 Fluid: ml 1375-1650ml (1ml/kcal) Nutritional Problem 1. Problem Problem inadequate food intake Etiology N/V Signs/Symptoms: PO intake <=50% Malnutrition Alert Protein-Calorie Malnutrition N/A Is there a minimum of two criteria No selected? Query Text:Check all the applicable criteria. A minimum of two criteria are recommended for diagnosis of either severe or non-severe malnutrition. Intervention/Recommendation Comments 1. Continue with current diet as ordered. If pt likes boost, will continue sending with meal tray. 2. Monitor PO intake, wt, labs and skin integrity 3. F/U as high risk in 2-3 days, 02/22-02/23 Expected Outcomes/Goals Expected Outcomes/Goals 1. PO intake to meet at least 75% of nutritional needs. 2. Wt stability, skin to heal, improved GI function, labs to approach WNL.
[2018-02-22] MEDS: Dicyclomine 10 mg Cap PO SCH (17:50)
[2018-02-22] MEDS: Morphine Sulfate 4 mg/mL 1mL Syr IV PRN (19:54)
--- NOTE | 2018-02-22 23:36 | Infectious Disease Prog Note ---
Infectious Disease Subjective - Review of Systems Service Date: 02/22/18 Subjective: doing well. Infectious Disease Objective - Results Result Diagrams: 02/23/18 05:15 02/23/18 05:15 Recent Labs: Laboratory Last Values WBC 2.3 Th/cmm (4.8-10.8) L* 02/22/18 07:55 RBC 3.55 Mil/cmm (3.80-5.10) L 02/22/18 07:55 Hgb 10.4 gm/dL (12-16) L 02/22/18 07:55 Hct 31.0 % (41.0-60) L 02/22/18 07:55 MCV 87.5 fl (81-100) 02/22/18 07:55 MCH 29.3 pg (27.0-31.0) 02/22/18 07:55 MCHC Differential 33.5 pg (28.0-36.0) 02/22/18 07:55 RDW 15.6 % (11.5-20.0) 02/22/18 07:55 Plt Count 217 Th/cmm (150-400) 02/22/18 07:55 MPV 6.4 fl 02/22/18 07:55 Band Neutrophils % 2 % (0-10) 02/22/18 07:55 Neutrophils (Manual) 38 % (40-80) L 02/22/18 07:55 Lymphocytes 48 % (20-50) 02/22/18 07:55 Monocytes 10 % (2-10) 02/22/18 07:55 Eosinophils 2 % (0-5) 02/22/18 07:55 Basophils 0 % (0-3) 02/22/18 07:55 Atypical Lymphocytes 4 % 02/21/18 06:02 Sodium 135 mEq/L (136-145) L 02/22/18 07:55 Potassium 4.4 mEq/L (3.5-5.1) 02/22/18 07:55 Chloride 100 mEq/L (98-107) 02/22/18 07:55 Carbon Dioxide 28.8 mEq/L (21.0-31.0) 02/22/18 07:55 Anion Gap 10.6 (7.0-16.0) 02/22/18 07:55 BUN 9 mg/dL (7-25) 02/22/18 07:55 Creatinine 0.8 mg/dL (0.6-1.2) 02/22/18 07:55 Est GFR ( Amer) > 60.0 ml/min (>90) 02/22/18 07:55 Est GFR (Non-Af Amer) > 60.0 ml/min 02/22/18 07:55 BUN/Creatinine Ratio 11.3 02/22/18 07:55 Glucose 109 mg/dL (70-105) H 02/22/18 07:55 Whole Bld Lactic Acid 2.19 mmol/L (0.60-1.99) H* 02/20/18 07:15 Calcium 9.1 mg/dL (8.6-10.3) 02/22/18 07:55 Total Bilirubin 0.5 mg/dL (0.3-1.0) 02/21/18 06:02 Direct Bilirubin 0.09 mg/dL (0.0-0.2) 02/21/18 06:02 AST 78 U/L (13-39) H 02/21/18 06:02 ALT 29 U/L (7-52) 02/21/18 06:02 Alkaline Phosphatase 62 U/L (34-104) 02/21/18 06:02 Total Protein 6.6 gm/dL (6.0-8.3) 02/21/18 06:02 Albumin 3.8 gm/dL (3.7-5.3) 02/21/18 06:02 Globulin 2.8 gm/dL 02/21/18 06:02 Albumin/Globulin Ratio 1.4 (1.0-1.8) 02/21/18 06:02 Amylase 94 U/L (29-103) 02/20/18 04:40 Lipase 59 U/L (11-82) 02/21/18 06:02 Serum , Qual NEGATIVE (NEGATIVE) 02/20/18 04:40 Urine Source CLEAN C 02/20/18 04:00 Urine Color YELLOW 02/20/18 04:00 Urine Clarity HAZY (CLEAR) 02/20/18 04:00 Urine pH 6.0 (4.6 - 8.0) 02/20/18 04:00 Ur Specific [place] >= 1.030 (1.005-1.030) 02/20/18 04:00 Urine Protein TRACE mg/dL (NEGATIVE) 02/20/18 04:00 Urine Glucose (UA) NEGATIVE mg/dL (NEGATIVE) 02/20/18 04:00 Urine Ketones NEGATIVE mg/dL (NEGATIVE) 02/20/18 04:00 Urine Blood NEGATIVE (NEGATIVE) 02/20/18 04:00 Urine Nitrate NEGATIVE (NEGATIVE) 02/20/18 04:00 Urine Bilirubin NEGATIVE (NEGATIVE) 02/20/18 04:00 Urine Urobilinogen 0.2 E.U./dL (0.2 - 1.0) 02/20/18 04:00 Ur Leukocyte Esterase NEGATIVE (NEGATIVE) 02/20/18 04:00 Urine RBC 0-2 /hpf (0-5) 02/20/18 04:00 Urine WBC 0-2 /hpf (0-5) 02/20/18 04:00 Ur Epithelial Cells FEW /lpf (FEW) 02/20/18 04:00 Calcium Oxalate Crystal MANY /hpf 02/20/18 04:00 Urine Bacteria FEW /hpf (NONE SEEN) 02/20/18 04:00 Urine Opiates Screen POSITIVE (NEGATIVE) H 02/20/18 11:20 Urine Methadone Screen NEGATIVE (NEGATIVE) 02/20/18 11:20 Ur Barbiturates Screen NEGATIVE (NEGATIVE) 02/20/18 11:20 Ur Tricyclics Screen NEGATIVE (NEGATIVE) 02/20/18 11:20 Ur Phencyclidine Scrn NEGATIVE (NEGATIVE) 02/20/18 11:20 Amphetamines Screen NEGATIVE (NEGATIVE) 02/20/18 11:20 U Methamphetamines Scrn NEGATIVE (NEGATIVE) 02/20/18 11:20 U Benzodiazepines Scrn NEGATIVE (NEGATIVE) 02/20/18 11:20 U Cocaine Metab Screen NEGATIVE (NEGATIVE) 02/20/18 11:20 U Cannabinoids Screen NEGATIVE (NEGATIVE) 02/20/18 11:20 Ethyl Alcohol 102 mg/dL (0-10) H 02/20/18 10:40 RPR NONREACTIVE (NONREACTIVE) 02/20/18 10:40 Hepatitis A IgM Ab Negative (Negative) 02/20/18 10:40 Hep Bs Antigen Negative (Negative) 02/20/18 10:40 Hep B Core IgM Ab Negative (Negative) 02/20/18 10:40 Hepatitis C Antibody <0.1 s/co ratio (0.0-0.9) 02/20/18 10:40 HIV 1&2 Antibody Screen NEGATIVE (NEG) 02/20/18 04:40 - Physical Exam Vitals and I&O: Vital Signs Temp 98.5 F 02/22/18 20:00 Pulse 85 02/22/18 20:00 Resp 20 02/22/18 20:00 BP 132/84 02/22/18 20:00 Pulse Ox 100 02/22/18 20:00 Intake & Output 02/22/18 02/22/18 02/23/18 06:59 18:59 06:59 Intake Total 2229.167 1500 Output Total 4 Balance 2225.167 1500 Weight (lbs) 55.338 kg 56.245 kg Intake: Intake, IV Amount 9169.290 2364 D5-0.45NS 1,000 ml @ 125 9537.109 7000 mls/hr IV .Q8H YRN Rx#: [id number] Oral 500 500 Output: Urine 4 Other: # Voids 5 # Bowel Movements 1 1 Weight Source Bedscale Bedscale Active Medications: Current Medications Alprazolam (Xanax) 0.25 mg PO Q6HR PRN; Protocol PRN Reason: Anxiety Stop: 04/21/18 18:23 Calamine (Calamine) 1 appl TP Q4HR PRN PRN Reason: Itching Stop: 04/21/18 16:43 Last Admin: 02/21/18 03:33 Dose: 1 appl Dicyclomine HCl (Bentyl) 20 mg PO BID YRN Stop: 04/23/18 16:59 Last Admin: 02/22/18 17:50 Dose: 20 mg Hydroxyzine HCl (Atarax) 20 mg PO Q8H PRN; Protocol PRN Reason: Itching Stop: 04/21/18 12:47 Last Admin: 02/22/18 20:58 Dose: 20 mg Ceftriaxone Sodium 1 gm/ (Sodium Chloride) 50 mls @ 100 mls/hr IV Q24H YRN Stop: 04/22/18 05:59 Last Admin: 02/22/18 06:07 Dose: 100 mls/hr Dextrose/Sodium Chloride (D5-0.45ns) 1,000 mls @ 125 mls/hr IV .Q8H YRN Stop: 04/21/18 09:14 Last Admin: 02/22/18 17:54 Dose: 125 mls/hr Lorazepam (Ativan) 1 mg IVP Q4HR PRN; Protocol PRN Reason: Anxiety Stop: 04/21/18 13:25 Last Admin: 02/22/18 23:17 Dose: 1 mg Morphine Sulfate (Morphine) 1 mg IVP Q3H PRN PRN Reason: MODERATE PAIN Stop: 04/21/18 09:10 Last Admin: 02/22/18 10:07 Dose: 1 mg Morphine Sulfate (Morphine) 4 mg IV Q6HR PRN PRN Reason: Severe Pain Stop: 04/21/18 13:24 Last Admin: 02/22/18 19:54 Dose: 4 mg Nystatin (Mycostatin Cream) 1 appl TP DAILY YRN Stop: 04/22/18 08:59 Last Admin: 02/22/18 10:07 Dose: 1 appl Ondansetron HCl (Zofran) 4 mg IV Q6H PRN PRN Reason: Nausea / Vomiting Stop: 04/21/18 09:13 Last Admin: 02/22/18 19:53 Dose: 4 mg General: no acute distress, well developed, well nourished HEENT: atraumatic, normocephalic, PERRLA, EOMI Neck: supple, no thyromegaly Cardiovascular: S1S2, regular Lungs: clear to auscultation bilaterally, clear to percussion Abdomen: soft, bowel sounds, no tender, no distended, no mass Extremities: no cyanosis, no clubbing, no edema Neurological: awake, alert, oriented Skin: intact Infectious Disease Assmt/Plan - Assessment Assessment: 1. Neutropenia. 2. Anemia. 3. Cirrhosis. - Plan Plan: cpm/ Nutritional Asmnt/Malnutr-PDOC - Dietary Evaluation Malnutrition Findings (Please click <Entered> for more info): Nutritional Asmnt/Malnutrition Start: 02/20/18 15: 00 Text: Status: Complete Freq: Document 02/20/18 15:00 [facility] (Rec: 02/20/18 15:19 [facility] [email or web address]) Nutritional Asmnt/Malnutrition Patient General Information Nutritional Screening High Risk Diagnosis severe gastroenteritis, leukopenia, sepsis Pertinent Medical Hx/Surgical Hx HTN Subjective Information Pt seen sitting on bed at time of visit, awake and alert. Pt reported she had diffulculty of taking down food. She tried to consumed half of lunch tray. Pt reported some N/V after taking food. Pt has concern of nutrition intake. Offered pt Boost per pt request in the afternoon. Current Diet Order/ Nutrition Support [facility] chopped Pertinent Medications D5-0.45ns, zofran Pertinent Labs 02/20 glucose 107 Nutritional Hx/Data Height 1.68 m Height (Calculated Centimeters) 167.6 Current Weight (lbs) 55.338 kg Weight (Calculated Kilograms) 55.3 Weight (Calculated Grams) 47245.3 [place] Body Weight 130 Body Mass Index (BMI) 19.7 Weight Status Approriate GI Symptoms GI Symptoms Nausea Vomitting Last BM no record Difficult in: None Skin Integrity/Comment: facial abrasion and scars Current %PO Poor (25-49%) Estimated Nutritional Goals BEE in Kcals: Using Current wt Calories/Kcals/Kg 25-30 Kcals Calculated 2084-2338 Protein: Using Current wt Protein g/k-1.2 Protein Calculated 55-66 Fluid: ml 1375-1650ml (1ml/kcal) Nutritional Problem 1. Problem Problem inadequate food intake Etiology N/V Signs/Symptoms: PO intake <=50% Malnutrition Alert Protein-Calorie Malnutrition N/A Is there a minimum of two criteria No selected? Query Text:Check all the applicable criteria. A minimum of two criteria are recommended for diagnosis of either severe or non-severe malnutrition. Intervention/Recommendation Comments 1. Continue with current diet as ordered. If pt likes boost, will continue sending with meal tray. 2. Monitor PO intake, wt, labs and skin integrity 3. F/U as high risk in 2-3 days, 02/22-02/23 Expected Outcomes/Goals Expected Outcomes/Goals 1. PO intake to meet at least 75% of nutritional needs. 2. Wt stability, skin to heal, improved GI function, labs to approach WNL.
[2018-02-23] MEDS: Morphine Sulfate 4 mg/mL 1mL Syr IV PRN ×3 (02:23→19:57)
[2018-02-23] MEDS: D5-0.45NS 1,000 ML IV SCH ×2 (02:23→15:21)
[2018-02-23 05:32] LABS: HEMATOCRIT 31.4 % (41.0-60); HEMOGLOBIN 10.4 gm/dL (12-16); MEAN CELL VOLUME 87.6 fl (81-100); MEAN CORPUSCULAR HEMOGLOBIN 29.1 pg (27.0-31.0); MEAN CORPUSCULAR HGB CONC 33.3 pg (28.0-36.0); MEAN PLATELET VOLUME 6.7 fl; PLATELET COUNT 221 Th/cmm (150-400); RED BLOOD COUNT 3.58 Mil/cmm (3.80-5.10)
[2018-02-23 05:35] LABS: MANUAL DIFF REQUIRED? YES; WHITE BLOOD COUNT 2.6 Th/cmm (4.8-10.8)
[2018-02-23 05:52] LABS: ALB/GLOB RATIO 1.3 (1.0-1.8); ALBUMIN 3.9 gm/dL (3.7-5.3); ALKALINE PHOSPHATASE 59 U/L (34-104); BILIRUBIN,TOTAL 0.2 mg/dL (0.3-1.0); BUN - UREA NITROGEN 11 mg/dL (7-25); CALCIUM SERUM 9.4 mg/dL (8.6-10.3); CARBON DIOXIDE 25.6 mEq/L (21.0-31.0); CHLORIDE 100 mEq/L (98-107); CREATININE - SERUM 0.8 mg/dL (0.6-1.2); GFR AFRICAN-AMERICAN > 60.0 ml/min (>90); GFR NON AFRICAN-AMERICAN > 60.0 ml/min; GLUCOSE 103 mg/dL (70-105); LIPASE 84 U/L (11-82); POTASSIUM SERUM 4.6 mEq/L (3.5-5.1); SGOT 46 U/L (13-39); SGPT/ALT 27 U/L (7-52); SODIUM SERUM 132 mEq/L (136-145); TOTAL PROTEIN,SERUM 6.8 gm/dL (6.0-8.3)
[2018-02-23] MEDS: cefTRIAXone 1 GM in Sodium Chloride 0.9% 50 ML IV SCH (05:53)
[2018-02-23 06:09] LABS: EOSINOPHIL 5 % (0-5); LYMPHOCYTE 51 % (20-50); MONOCYTE 5 % (2-10); NEUTROPHILS 39 % (40-80); TOTAL CELLS COUNTED 100
[2018-02-23] MEDS: Dicyclomine 10 mg Cap PO SCH ×2 (10:06→16:31)
[2018-02-23] MEDS: Nystatin Cream 100,000 u/gm Cream 15 gm TP SCH (10:10)
--- NOTE | 2018-02-23 12:12 | Infectious Disease Prog Note ---
Infectious Disease Subjective - Review of Systems Service Date: 02/23/18 Subjective: doing well. no fever. Infectious Disease Objective - Results Result Diagrams: 02/23/18 05:15 02/23/18 05:15 Recent Labs: Laboratory Last Values WBC 2.6 Th/cmm (4.8-10.8) L 02/23/18 05:15 RBC 3.58 Mil/cmm (3.80-5.10) L 02/23/18 05:15 Hgb 10.4 gm/dL (12-16) L 02/23/18 05:15 Hct 31.4 % (41.0-60) L 02/23/18 05:15 MCV 87.6 fl (81-100) 02/23/18 05:15 MCH 29.1 pg (27.0-31.0) 02/23/18 05:15 MCHC Differential 33.3 pg (28.0-36.0) 02/23/18 05:15 RDW 16.0 % (11.5-20.0) 02/23/18 05:15 Plt Count 221 Th/cmm (150-400) 02/23/18 05:15 MPV 6.7 fl 02/23/18 05:15 Band Neutrophils % 2 % (0-10) 02/22/18 07:55 Neutrophils (Manual) 39 % (40-80) L 02/23/18 05:15 Lymphocytes 51 % (20-50) H 02/23/18 05:15 Monocytes 5 % (2-10) 02/23/18 05:15 Eosinophils 5 % (0-5) 02/23/18 05:15 Basophils 0 % (0-3) 02/22/18 07:55 Atypical Lymphocytes 4 % 02/21/18 06:02 Sodium 132 mEq/L (136-145) L 02/23/18 05:15 Potassium 4.6 mEq/L (3.5-5.1) 02/23/18 05:15 Chloride 100 mEq/L (98-107) 02/23/18 05:15 Carbon Dioxide 25.6 mEq/L (21.0-31.0) 02/23/18 05:15 Anion Gap 11.0 (7.0-16.0) 02/23/18 05:15 BUN 11 mg/dL (7-25) 02/23/18 05:15 Creatinine 0.8 mg/dL (0.6-1.2) 02/23/18 05:15 Est GFR ( Amer) > 60.0 ml/min (>90) 02/23/18 05:15 Est GFR (Non-Af Amer) > 60.0 ml/min 02/23/18 05:15 BUN/Creatinine Ratio 13.8 02/23/18 05:15 Glucose 103 mg/dL (70-105) 02/23/18 05:15 Whole Bld Lactic Acid 2.19 mmol/L (0.60-1.99) H* 02/20/18 07:15 Calcium 9.4 mg/dL (8.6-10.3) 02/23/18 05:15 Total Bilirubin 0.2 mg/dL (0.3-1.0) L 02/23/18 05:15 Direct Bilirubin 0.09 mg/dL (0.0-0.2) 02/21/18 06:02 AST 46 U/L (13-39) H 02/23/18 05:15 ALT 27 U/L (7-52) 02/23/18 05:15 Alkaline Phosphatase 59 U/L (34-104) 02/23/18 05:15 Total Protein 6.8 gm/dL (6.0-8.3) 02/23/18 05:15 Albumin 3.9 gm/dL (3.7-5.3) 02/23/18 05:15 Globulin 2.9 gm/dL 02/23/18 05:15 Albumin/Globulin Ratio 1.3 (1.0-1.8) 02/23/18 05:15 Amylase 94 U/L (29-103) 02/20/18 04:40 Lipase 84 U/L (11-82) H 02/23/18 05:15 Serum , Qual NEGATIVE (NEGATIVE) 02/20/18 04:40 Urine Source CLEAN C 02/20/18 04:00 Urine Color YELLOW 02/20/18 04:00 Urine Clarity HAZY (CLEAR) 02/20/18 04:00 Urine pH 6.0 (4.6 - 8.0) 02/20/18 04:00 Ur Specific Era >= 1.030 (1.005-1.030) 02/20/18 04:00 Urine Protein TRACE mg/dL (NEGATIVE) 02/20/18 04:00 Urine Glucose (UA) NEGATIVE mg/dL (NEGATIVE) 02/20/18 04:00 Urine Ketones NEGATIVE mg/dL (NEGATIVE) 02/20/18 04:00 Urine Blood NEGATIVE (NEGATIVE) 02/20/18 04:00 Urine Nitrate NEGATIVE (NEGATIVE) 02/20/18 04:00 Urine Bilirubin NEGATIVE (NEGATIVE) 02/20/18 04:00 Urine Urobilinogen 0.2 E.U./dL (0.2 - 1.0) 02/20/18 04:00 Ur Leukocyte Esterase NEGATIVE (NEGATIVE) 02/20/18 04:00 Urine RBC 0-2 /hpf (0-5) 02/20/18 04:00 Urine WBC 0-2 /hpf (0-5) 02/20/18 04:00 Ur Epithelial Cells FEW /lpf (FEW) 02/20/18 04:00 Calcium Oxalate Crystal MANY /hpf 02/20/18 04:00 Urine Bacteria FEW /hpf (NONE SEEN) 02/20/18 04:00 Urine Opiates Screen POSITIVE (NEGATIVE) H 02/20/18 11:20 Urine Methadone Screen NEGATIVE (NEGATIVE) 02/20/18 11:20 Ur Barbiturates Screen NEGATIVE (NEGATIVE) 02/20/18 11:20 Ur Tricyclics Screen NEGATIVE (NEGATIVE) 02/20/18 11:20 Ur Phencyclidine Scrn NEGATIVE (NEGATIVE) 02/20/18 11:20 Amphetamines Screen NEGATIVE (NEGATIVE) 02/20/18 11:20 U Methamphetamines Scrn NEGATIVE (NEGATIVE) 02/20/18 11:20 U Benzodiazepines Scrn NEGATIVE (NEGATIVE) 02/20/18 11:20 U Cocaine Metab Screen NEGATIVE (NEGATIVE) 02/20/18 11:20 U Cannabinoids Screen NEGATIVE (NEGATIVE) 02/20/18 11:20 Ethyl Alcohol 102 mg/dL (0-10) H 02/20/18 10:40 RPR NONREACTIVE (NONREACTIVE) 02/20/18 10:40 Hepatitis A IgM Ab Negative (Negative) 02/20/18 10:40 Hep Bs Antigen Negative (Negative) 02/20/18 10:40 Hep B Core IgM Ab Negative (Negative) 02/20/18 10:40 Hepatitis C Antibody <0.1 s/co ratio (0.0-0.9) 02/20/18 10:40 HIV 1&2 Antibody Screen NEGATIVE (NEG) 02/20/18 04:40 - Physical Exam Vitals and I&O: Vital Signs Temp 97.0 F 02/23/18 08:16 Pulse 77 02/23/18 08:16 Resp 18 02/23/18 08:16 BP 102/57 02/23/18 08:16 Pulse Ox 100 02/23/18 08:16 Intake & Output 02/22/18 02/23/18 02/23/18 18:59 06:59 18:59 Intake Total 1500 1500 Balance 1500 1500 Weight (lbs) 56.245 kg 62.868 kg Intake: Intake, IV Amount 1000 1000 D5-0.45NS 1,000 ml @ 125 1000 1000 mls/hr IV .Q8H YRN Rx#: [id number] Oral 500 500 Other: # Voids 5 3 # Bowel Movements 1 1 Weight Source Bedscale Bedscale Active Medications: Current Medications Alprazolam (Xanax) 0.25 mg PO Q6HR PRN; Protocol PRN Reason: Anxiety Stop: 04/21/18 18:23 Calamine (Calamine) 1 appl TP Q4HR PRN PRN Reason: Itching Stop: 04/21/18 16:43 Last Admin: 02/21/18 03:33 Dose: 1 appl Dicyclomine HCl (Bentyl) 20 mg PO BID YRN Stop: 04/23/18 16:59 Last Admin: 02/23/18 10:06 Dose: 20 mg Hydroxyzine HCl (Atarax) 20 mg PO Q8H PRN; Protocol PRN Reason: Itching Stop: 04/21/18 12:47 Last Admin: 02/23/18 06:49 Dose: 20 mg Ceftriaxone Sodium 1 gm/ (Sodium Chloride) 50 mls @ 100 mls/hr IV Q24H YRN Stop: 04/22/18 05:59 Last Admin: 02/23/18 05:53 Dose: 100 mls/hr Dextrose/Sodium Chloride (D5-0.45ns) 1,000 mls @ 125 mls/hr IV .Q8H YRN Stop: 04/21/18 09:14 Last Admin: 02/23/18 02:23 Dose: 125 mls/hr Lorazepam (Ativan) 1 mg IVP Q4HR PRN; Protocol PRN Reason: Anxiety Stop: 04/21/18 13:25 Last Admin: 02/22/18 23:17 Dose: 1 mg Morphine Sulfate (Morphine) 1 mg IVP Q3H PRN PRN Reason: MODERATE PAIN Stop: 04/21/18 09:10 Last Admin: 02/22/18 10:07 Dose: 1 mg Morphine Sulfate (Morphine) 4 mg IV Q6HR PRN PRN Reason: Severe Pain Stop: 04/21/18 13:24 Last Admin: 02/23/18 10:06 Dose: 4 mg Nystatin (Mycostatin Cream) 1 appl TP DAILY YRN Stop: 04/22/18 08:59 Last Admin: 02/23/18 10:10 Dose: 1 appl Ondansetron HCl (Zofran) 4 mg IV Q6H PRN PRN Reason: Nausea / Vomiting Stop: 04/21/18 09:13 Last Admin: 02/23/18 02:22 Dose: 4 mg General: no acute distress, well developed, well nourished HEENT: atraumatic, normocephalic, PERRLA, EOMI, moist mucous membrane Neck: supple, no thyromegaly, no lymphadenopathy, no rigid Cardiovascular: S1S2, regular Lungs: clear to auscultation bilaterally, clear to percussion Abdomen: soft, bowel sounds, no tender, no distended Extremities: no cyanosis, no clubbing, no edema Neurological: awake, alert, oriented Skin: intact Infectious Disease Assmt/Plan - Assessment Assessment: 1. Neutropenia. 2. Anemia. 3. Cirrhosis. - Plan Plan: CPM. Nutritional Asmnt/Malnutr-PDOC - Dietary Evaluation Malnutrition Findings (Please click <Entered> for more info): Nutritional Asmnt/Malnutrition Start: 02/20/18 15: 00 Text: Status: Complete Freq: Document 02/20/18 15:00 [facility] (Rec: 02/20/18 15:[email or web address] Nutritional Asmnt/Malnutrition Patient General Information Nutritional Screening High Risk Diagnosis severe gastroenteritis, leukopenia, sepsis Pertinent Medical Hx/Surgical Hx HTN Subjective Information Pt seen sitting on bed at time of visit, awake and alert. Pt reported she had diffulculty of taking down food. She tried to consumed half of lunch tray. Pt reported some N/V after taking food. Pt has concern of nutrition intake. Offered pt Boost per pt request in the afternoon. Current Diet Order/ Nutrition Support [facility] chopped Pertinent Medications D5-0.45ns, zofran Pertinent Labs 02/20 glucose 107 Nutritional Hx/Data Height 1.68 m Height (Calculated Centimeters) 167.6 Current Weight (lbs) 55.338 kg Weight (Calculated Kilograms) 55.3 Weight (Calculated Grams) 19431.3 [place] Body Weight 130 Body Mass Index (BMI) 19.7 Weight Status Approriate GI Symptoms GI Symptoms Nausea Vomitting Last BM no record Difficult in: None Skin Integrity/Comment: facial abrasion and scars Current %PO Poor (25-49%) Estimated Nutritional Goals BEE in Kcals: Using Current wt Calories/Kcals/Kg 25-30 Kcals Calculated 7126-6673 Protein: Using Current wt Protein g/k-1.2 Protein Calculated 55-66 Fluid: ml 1375-1650ml (1ml/kcal) Nutritional Problem 1. Problem Problem inadequate food intake Etiology N/V Signs/Symptoms: PO intake <=50% Malnutrition Alert Protein-Calorie Malnutrition N/A Is there a minimum of two criteria No selected? Query Text:Check all the applicable criteria. A minimum of two criteria are recommended for diagnosis of either severe or non-severe malnutrition. Intervention/Recommendation Comments 1. Continue with current diet as ordered. If pt likes boost, will continue sending with meal tray. 2. Monitor PO intake, wt, labs and skin integrity 3. F/U as high risk in 2-3 days, 02/22-02/23 Expected Outcomes/Goals Expected Outcomes/Goals 1. PO intake to meet at least 75% of nutritional needs. 2. Wt stability, skin to heal, improved GI function, labs to approach WNL.
--- NOTE | 2018-02-23 13:38 | Consultation ---
DATE OF CONSULTATION: 02/23/2018 HEMATOLOGY ONCOLOGY CONSULTATION REFERRING PHYSICIAN: Dr. Razo. REASON FOR CONSULTATION: Leukopenia. HISTORY OF PRESENT ILLNESS: The patient is a 42-year-old female with history of cirrhosis. She is homeless, admitted with gastroenteritis and leukopenia. PAST MEDICAL HISTORY: Cirrhosis. The patient had toxicology screen positive for opiates. MEDICATIONS IN THE HOSPITAL: Reviewed. SOCIAL HISTORY: Homeless. Alcohol abuse. PHYSICAL EXAMINATION: GENERAL: She is awake, disheveled. No peripheral lymphadenopathy. CHEST: Clear. ABDOMEN: Soft. Right inguinal hernia. LABORATORY AND DIAGNOSTIC DATA: White count 2.6 which is improved from admission, hemoglobin 10.4, and platelet count 221. Chemistry: Elevated AST and lipase, normal chemistry otherwise. Ultrasound of the abdomen showed hepatomegaly and chronic liver disease. ASSESSMENT: 1. Leukopenia, most likely related to the chronic liver disease, seems to be improving. The patient is afebrile. There is no need to use growth factors and continue to monitor the white count for now. 2. Abnormal liver functions and liver imaging per Gastroenterology. 3. Gastroenteritis per ID. Thank you, Dr. Razo for the opportunity to participate in the care of this interesting case with you. JOB# [id number]
--- NOTE | 2018-02-23 20:28 | General Progress Note ---
Objective - Results Result Diagrams: 02/23/18 05:15 02/23/18 05:15 Recent Labs: Laboratory Last Values WBC 2.6 Th/cmm (4.8-10.8) L 02/23/18 05:15 RBC 3.58 Mil/cmm (3.80-5.10) L 02/23/18 05:15 Hgb 10.4 gm/dL (12-16) L 02/23/18 05:15 Hct 31.4 % (41.0-60) L 02/23/18 05:15 MCV 87.6 fl (81-100) 02/23/18 05:15 MCH 29.1 pg (27.0-31.0) 02/23/18 05:15 MCHC Differential 33.3 pg (28.0-36.0) 02/23/18 05:15 RDW 16.0 % (11.5-20.0) 02/23/18 05:15 Plt Count 221 Th/cmm (150-400) 02/23/18 05:15 MPV 6.7 fl 02/23/18 05:15 Band Neutrophils % 2 % (0-10) 02/22/18 07:55 Neutrophils (Manual) 39 % (40-80) L 02/23/18 05:15 Lymphocytes 51 % (20-50) H 02/23/18 05:15 Monocytes 5 % (2-10) 02/23/18 05:15 Eosinophils 5 % (0-5) 02/23/18 05:15 Basophils 0 % (0-3) 02/22/18 07:55 Atypical Lymphocytes 4 % 02/21/18 06:02 Sodium 132 mEq/L (136-145) L 02/23/18 05:15 Potassium 4.6 mEq/L (3.5-5.1) 02/23/18 05:15 Chloride 100 mEq/L (98-107) 02/23/18 05:15 Carbon Dioxide 25.6 mEq/L (21.0-31.0) 02/23/18 05:15 Anion Gap 11.0 (7.0-16.0) 02/23/18 05:15 BUN 11 mg/dL (7-25) 02/23/18 05:15 Creatinine 0.8 mg/dL (0.6-1.2) 02/23/18 05:15 Est GFR ( Amer) > 60.0 ml/min (>90) 02/23/18 05:15 Est GFR (Non-Af Amer) > 60.0 ml/min 02/23/18 05:15 BUN/Creatinine Ratio 13.8 02/23/18 05:15 Glucose 103 mg/dL (70-105) 02/23/18 05:15 Whole Bld Lactic Acid 2.19 mmol/L (0.60-1.99) H* 02/20/18 07:15 Calcium 9.4 mg/dL (8.6-10.3) 02/23/18 05:15 Total Bilirubin 0.2 mg/dL (0.3-1.0) L 02/23/18 05:15 Direct Bilirubin 0.09 mg/dL (0.0-0.2) 02/21/18 06:02 AST 46 U/L (13-39) H 02/23/18 05:15 ALT 27 U/L (7-52) 02/23/18 05:15 Alkaline Phosphatase 59 U/L (34-104) 02/23/18 05:15 Total Protein 6.8 gm/dL (6.0-8.3) 02/23/18 05:15 Albumin 3.9 gm/dL (3.7-5.3) 02/23/18 05:15 Globulin 2.9 gm/dL 02/23/18 05:15 Albumin/Globulin Ratio 1.3 (1.0-1.8) 02/23/18 05:15 Amylase 94 U/L (29-103) 02/20/18 04:40 Lipase 84 U/L (11-82) H 02/23/18 05:15 Serum , Qual NEGATIVE (NEGATIVE) 02/20/18 04:40 Urine Source CLEAN C 02/20/18 04:00 Urine Color YELLOW 02/20/18 04:00 Urine Clarity HAZY (CLEAR) 02/20/18 04:00 Urine pH 6.0 (4.6 - 8.0) 02/20/18 04:00 Ur Specific [place] >= 1.030 (1.005-1.030) 02/20/18 04:00 Urine Protein TRACE mg/dL (NEGATIVE) 02/20/18 04:00 Urine Glucose (UA) NEGATIVE mg/dL (NEGATIVE) 02/20/18 04:00 Urine Ketones NEGATIVE mg/dL (NEGATIVE) 02/20/18 04:00 Urine Blood NEGATIVE (NEGATIVE) 02/20/18 04:00 Urine Nitrate NEGATIVE (NEGATIVE) 02/20/18 04:00 Urine Bilirubin NEGATIVE (NEGATIVE) 02/20/18 04:00 Urine Urobilinogen 0.2 E.U./dL (0.2 - 1.0) 02/20/18 04:00 Ur Leukocyte Esterase NEGATIVE (NEGATIVE) 02/20/18 04:00 Urine RBC 0-2 /hpf (0-5) 02/20/18 04:00 Urine WBC 0-2 /hpf (0-5) 02/20/18 04:00 Ur Epithelial Cells FEW /lpf (FEW) 02/20/18 04:00 Calcium Oxalate Crystal MANY /hpf 02/20/18 04:00 Urine Bacteria FEW /hpf (NONE SEEN) 02/20/18 04:00 Urine Opiates Screen POSITIVE (NEGATIVE) H 02/20/18 11:20 Urine Methadone Screen NEGATIVE (NEGATIVE) 02/20/18 11:20 Ur Barbiturates Screen NEGATIVE (NEGATIVE) 02/20/18 11:20 Ur Tricyclics Screen NEGATIVE (NEGATIVE) 02/20/18 11:20 Ur Phencyclidine Scrn NEGATIVE (NEGATIVE) 02/20/18 11:20 Amphetamines Screen NEGATIVE (NEGATIVE) 02/20/18 11:20 U Methamphetamines Scrn NEGATIVE (NEGATIVE) 02/20/18 11:20 U Benzodiazepines Scrn NEGATIVE (NEGATIVE) 02/20/18 11:20 U Cocaine Metab Screen NEGATIVE (NEGATIVE) 02/20/18 11:20 U Cannabinoids Screen NEGATIVE (NEGATIVE) 02/20/18 11:20 Ethyl Alcohol 102 mg/dL (0-10) H 02/20/18 10:40 RPR NONREACTIVE (NONREACTIVE) 02/20/18 10:40 Hepatitis A IgM Ab Negative (Negative) 02/20/18 10:40 Hep Bs Antigen Negative (Negative) 02/20/18 10:40 Hep B Core IgM Ab Negative (Negative) 02/20/18 10:40 Hepatitis C Antibody <0.1 s/co ratio (0.0-0.9) 02/20/18 10:40 HIV 1&2 Antibody Screen NEGATIVE (NEG) 02/20/18 04:40 - Physical Exam Vitals and I&O: Vital Signs Temp 97.7 F 02/23/18 20:00 Pulse 86 02/23/18 20:00 Resp 17 02/23/18 20:00 BP 110/66 02/23/18 20:00 Pulse Ox 99 02/23/18 20:00 Intake & Output 02/23/18 02/23/18 02/24/18 06:59 18:59 06:59 Intake Total 1500 2019 Balance 1500 2019 Weight (lbs) 62.868 kg 62.596 kg Intake: Intake, IV Amount 1000 1000 D5-0.45NS 1,000 ml @ 125 1000 1000 mls/hr IV .Q8H YRN Rx#: [id number] Oral 500 1020 Other: # Voids 3 3 # Bowel Movements 1 1 Weight Source Bedscale Estimated Active Medications: Current Medications Alprazolam (Xanax) 0.25 mg PO Q6HR PRN; Protocol PRN Reason: Anxiety Stop: 04/21/18 18:23 Calamine (Calamine) 1 appl TP Q4HR PRN PRN Reason: Itching Stop: 04/21/18 16:43 Last Admin: 02/21/18 03:33 Dose: 1 appl Dicyclomine HCl (Bentyl) 20 mg PO BID YRN Stop: 04/23/18 16:59 Last Admin: 02/23/18 16:31 Dose: 20 mg Hydroxyzine HCl (Atarax) 20 mg PO Q8H PRN; Protocol PRN Reason: Itching Stop: 04/21/18 12:47 Last Admin: 02/23/18 15:19 Dose: 20 mg Ceftriaxone Sodium 1 gm/ (Sodium Chloride) 50 mls @ 100 mls/hr IV Q24H YRN Stop: 04/22/18 05:59 Last Admin: 02/23/18 05:53 Dose: 100 mls/hr Dextrose/Sodium Chloride (D5-0.45ns) 1,000 mls @ 125 mls/hr IV .Q8H YRN Stop: 04/21/18 09:14 Last Admin: 02/23/18 15:21 Dose: 125 mls/hr Lorazepam (Ativan) 1 mg IVP Q4HR PRN; Protocol PRN Reason: Anxiety Stop: 04/21/18 13:25 Last Admin: 02/22/18 23:17 Dose: 1 mg Morphine Sulfate (Morphine) 1 mg IVP Q3H PRN PRN Reason: MODERATE PAIN Stop: 04/21/18 09:10 Last Admin: 02/22/18 10:07 Dose: 1 mg Morphine Sulfate (Morphine) 4 mg IV Q6HR PRN PRN Reason: Severe Pain Stop: 04/21/18 13:24 Last Admin: 02/23/18 19:57 Dose: 4 mg Nystatin (Mycostatin Cream) 1 appl TP DAILY YRN Stop: 04/22/18 08:59 Last Admin: 02/23/18 10:10 Dose: 1 appl Ondansetron HCl (Zofran) 4 mg IV Q6H PRN PRN Reason: Nausea / Vomiting Stop: 04/21/18 09:13 Last Admin: 02/23/18 15:19 Dose: 4 mg Nutritional Asmnt/Malnutr-PDOC - Dietary Evaluation Malnutrition Findings (Please click <Entered> for more info): Nutritional Asmnt/Malnutrition Start: 02/20/18 15: 00 Text: Status: Complete Freq: Document 02/20/18 15:00 [facility] (Rec: 02/20/18 15:19 [facility] [email or web address]) Nutritional Asmnt/Malnutrition Patient General Information Nutritional Screening High Risk Diagnosis severe gastroenteritis, leukopenia, sepsis Pertinent Medical Hx/Surgical Hx HTN Subjective Information Pt seen sitting on bed at time of visit, awake and alert. Pt reported she had diffulculty of taking down food. She tried to consumed half of lunch tray. Pt reported some N/V after taking food. Pt has concern of nutrition intake. Offered pt Boost per pt request in the afternoon. Current Diet Order/ Nutrition Support [facility] chopped Pertinent Medications D5-0.45ns, zofran Pertinent Labs 02/20 glucose 107 Nutritional Hx/Data Height 1.68 m Height (Calculated Centimeters) 167.6 Current Weight (lbs) 55.338 kg Weight (Calculated Kilograms) 55.3 Weight (Calculated Grams) 71864.3 [place] Body Weight 130 Body Mass Index (BMI) 19.7 Weight Status Approriate GI Symptoms GI Symptoms Nausea Vomitting Last BM no record Difficult in: None Skin Integrity/Comment: facial abrasion and scars Current %PO Poor (25-49%) Estimated Nutritional Goals BEE in Kcals: Using Current wt Calories/Kcals/Kg 25-30 Kcals Calculated 1821-0710 Protein: Using Current wt Protein g/k-1.2 Protein Calculated 55-66 Fluid: ml 1375-1650ml (1ml/kcal) Nutritional Problem 1. Problem Problem inadequate food intake Etiology N/V Signs/Symptoms: PO intake <=50% Malnutrition Alert Protein-Calorie Malnutrition N/A Is there a minimum of two criteria No selected? Query Text:Check all the applicable criteria. A minimum of two criteria are recommended for diagnosis of either severe or non-severe malnutrition. Intervention/Recommendation Comments 1. Continue with current diet as ordered. If pt likes boost, will continue sending with meal tray. 2. Monitor PO intake, wt, labs and skin integrity 3. F/U as high risk in 2-3 days, 02/22-02/23 Expected Outcomes/Goals Expected Outcomes/Goals 1. PO intake to meet at least 75% of nutritional needs. 2. Wt stability, skin to heal, improved GI function, labs to approach WNL.
[2018-02-24] MEDS: Morphine Sulfate 4 mg/mL 1mL Syr IV PRN ×2 (02:47→20:10)
[2018-02-24] MEDS: cefTRIAXone 1 GM in Sodium Chloride 0.9% 50 ML IV SCH (06:14)
[2018-02-24 06:42] LABS: EOSINOPHILE ABSOLUTE 0.1 Th/cmm (0.1-0.4); HEMATOCRIT 32.7 % (41.0-60); HEMOGLOBIN 10.9 gm/dL (12-16); LYMPHOCYTE ABSOLUTE 1.2 Th/cmm (1.5-3.0); MEAN CELL VOLUME 87.3 fl (81-100); MEAN CORPUSCULAR HEMOGLOBIN 29.2 pg (27.0-31.0); MEAN CORPUSCULAR HGB CONC 33.5 pg (28.0-36.0); MEAN PLATELET VOLUME 6.7 fl; MONOCYTE ABSOLUTE 0.6 Th/cmm (0.3-1.0); NEUTROPHILE ABSOLUTE 1.1 Th/cmm (1.8-8.0); PLATELET COUNT 233 Th/cmm (150-400); RED BLOOD COUNT 3.74 Mil/cmm (3.80-5.10); RED CELL DISTRIBUTION WIDTH 16.1 % (11.5-20.0)
[2018-02-24 06:47] LABS: % LYMPHOCYTES 40.3 % (20.0-50.0); % MONOCYTES 19.4 % (2.0-10.0); % NEUTROPHILS 37.2 % (40.0-80.0)
[2018-02-24 06:48] LABS: % BASOPHILS 0.1 % (0.0-2.0)
[2018-02-24] MEDS: Nystatin Cream 100,000 u/gm Cream 15 gm TP SCH (08:07)
[2018-02-24] MEDS: Dicyclomine 10 mg Cap PO SCH ×2 (08:07→16:08)
--- NOTE | 2018-02-24 14:20 | Infectious Disease Prog Note ---
Infectious Disease Subjective - Review of Systems Service Date: 02/24/18 Subjective: No fever. Infectious Disease Objective - Results Result Diagrams: 02/24/18 05:45 02/23/18 05:15 Recent Labs: Laboratory Last Values WBC 3.0 Th/cmm (4.8-10.8) L 02/24/18 05:45 RBC 3.74 Mil/cmm (3.80-5.10) L 02/24/18 05:45 Hgb 10.9 gm/dL (12-16) L 02/24/18 05:45 Hct 32.7 % (41.0-60) L 02/24/18 05:45 MCV 87.3 fl (81-100) 02/24/18 05:45 MCH 29.2 pg (27.0-31.0) 02/24/18 05:45 MCHC Differential 33.5 pg (28.0-36.0) 02/24/18 05:45 RDW 16.1 % (11.5-20.0) 02/24/18 05:45 Plt Count 233 Th/cmm (150-400) 02/24/18 05:45 MPV 6.7 fl 02/24/18 05:45 Neutrophils % 37.2 % (40.0-80.0) L 02/24/18 05:45 Band Neutrophils % 2 % (0-10) 02/22/18 07:55 Lymphocytes % 40.3 % (20.0-50.0) 02/24/18 05:45 Monocytes % 19.4 % (2.0-10.0) H 02/24/18 05:45 Eosinophils % 3.0 % (0.0-5.0) 02/24/18 05:45 Basophils % 0.1 % (0.0-2.0) 02/24/18 05:45 Neutrophils (Manual) 39 % (40-80) L 02/23/18 05:15 Lymphocytes 51 % (20-50) H 02/23/18 05:15 Monocytes 5 % (2-10) 02/23/18 05:15 Eosinophils 5 % (0-5) 02/23/18 05:15 Basophils 0 % (0-3) 02/22/18 07:55 Atypical Lymphocytes 4 % 02/21/18 06:02 Sodium 132 mEq/L (136-145) L 02/23/18 05:15 Potassium 4.6 mEq/L (3.5-5.1) 02/23/18 05:15 Chloride 100 mEq/L (98-107) 02/23/18 05:15 Carbon Dioxide 25.6 mEq/L (21.0-31.0) 02/23/18 05:15 Anion Gap 11.0 (7.0-16.0) 02/23/18 05:15 BUN 11 mg/dL (7-25) 02/23/18 05:15 Creatinine 0.8 mg/dL (0.6-1.2) 02/23/18 05:15 Est GFR ( Amer) > 60.0 ml/min (>90) 02/23/18 05:15 Est GFR (Non-Af Amer) > 60.0 ml/min 02/23/18 05:15 BUN/Creatinine Ratio 13.8 02/23/18 05:15 Glucose 103 mg/dL (70-105) 02/23/18 05:15 Whole Bld Lactic Acid 2.19 mmol/L (0.60-1.99) H* 02/20/18 07:15 Calcium 9.4 mg/dL (8.6-10.3) 02/23/18 05:15 Total Bilirubin 0.2 mg/dL (0.3-1.0) L 02/23/18 05:15 Direct Bilirubin 0.09 mg/dL (0.0-0.2) 02/21/18 06:02 AST 46 U/L (13-39) H 02/23/18 05:15 ALT 27 U/L (7-52) 02/23/18 05:15 Alkaline Phosphatase 59 U/L (34-104) 02/23/18 05:15 Total Protein 6.8 gm/dL (6.0-8.3) 02/23/18 05:15 Albumin 3.9 gm/dL (3.7-5.3) 02/23/18 05:15 Globulin 2.9 gm/dL 02/23/18 05:15 Albumin/Globulin Ratio 1.3 (1.0-1.8) 02/23/18 05:15 Amylase 94 U/L (29-103) 02/20/18 04:40 Lipase 84 U/L (11-82) H 02/23/18 05:15 Serum , Qual NEGATIVE (NEGATIVE) 02/20/18 04:40 Urine Source CLEAN C 02/20/18 04:00 Urine Color YELLOW 02/20/18 04:00 Urine Clarity HAZY (CLEAR) 02/20/18 04:00 Urine pH 6.0 (4.6 - 8.0) 02/20/18 04:00 Ur Specific [place] >= 1.030 (1.005-1.030) 02/20/18 04:00 Urine Protein TRACE mg/dL (NEGATIVE) 02/20/18 04:00 Urine Glucose (UA) NEGATIVE mg/dL (NEGATIVE) 02/20/18 04:00 Urine Ketones NEGATIVE mg/dL (NEGATIVE) 02/20/18 04:00 Urine Blood NEGATIVE (NEGATIVE) 02/20/18 04:00 Urine Nitrate NEGATIVE (NEGATIVE) 02/20/18 04:00 Urine Bilirubin NEGATIVE (NEGATIVE) 02/20/18 04:00 Urine Urobilinogen 0.2 E.U./dL (0.2 - 1.0) 02/20/18 04:00 Ur Leukocyte Esterase NEGATIVE (NEGATIVE) 02/20/18 04:00 Urine RBC 0-2 /hpf (0-5) 02/20/18 04:00 Urine WBC 0-2 /hpf (0-5) 02/20/18 04:00 Ur Epithelial Cells FEW /lpf (FEW) 02/20/18 04:00 Calcium Oxalate Crystal MANY /hpf 02/20/18 04:00 Urine Bacteria FEW /hpf (NONE SEEN) 02/20/18 04:00 Urine Opiates Screen POSITIVE (NEGATIVE) H 02/20/18 11:20 Urine Methadone Screen NEGATIVE (NEGATIVE) 02/20/18 11:20 Ur Barbiturates Screen NEGATIVE (NEGATIVE) 02/20/18 11:20 Ur Tricyclics Screen NEGATIVE (NEGATIVE) 02/20/18 11:20 Ur Phencyclidine Scrn NEGATIVE (NEGATIVE) 02/20/18 11:20 Amphetamines Screen NEGATIVE (NEGATIVE) 02/20/18 11:20 U Methamphetamines Scrn NEGATIVE (NEGATIVE) 02/20/18 11:20 U Benzodiazepines Scrn NEGATIVE (NEGATIVE) 02/20/18 11:20 U Cocaine Metab Screen NEGATIVE (NEGATIVE) 02/20/18 11:20 U Cannabinoids Screen NEGATIVE (NEGATIVE) 02/20/18 11:20 Ethyl Alcohol 102 mg/dL (0-10) H 02/20/18 10:40 RPR NONREACTIVE (NONREACTIVE) 02/20/18 10:40 T.pallidum Ab (FTA-ABS) Non Reactive (Non Reactive) 02/20/18 10:40 Hepatitis A IgM Ab Negative (Negative) 02/20/18 10:40 Hep Bs Antigen Negative (Negative) 02/20/18 10:40 Hep B Core IgM Ab Negative (Negative) 02/20/18 10:40 Hepatitis C Antibody <0.1 s/co ratio (0.0-0.9) 02/20/18 10:40 HIV 1&2 Antibody Screen NEGATIVE (NEG) 02/20/18 04:40 - Physical Exam Vitals and I&O: Vital Signs Temp 96.4 F 02/24/18 11:55 Pulse 67 02/24/18 11:55 Resp 19 02/24/18 11:55 BP 116/70 02/24/18 11:55 Pulse Ox 100 02/24/18 11:55 Intake & Output 02/23/18 02/24/18 02/24/18 18:59 06:59 18:59 Intake Total 2019 Balance 2020 Weight (lbs) 62.596 kg 61.008 kg 60.328 kg Intake: Intake, IV Amount 1000 D5-0.45NS 1,000 ml @ 125 1000 mls/hr IV .Q8H [facility] Rx#: [id number] Oral 1020 Other: # Voids 3 # Bowel Movements 1 Weight Source Estimated Bedscale Bedscale Active Medications: Current Medications Alprazolam (Xanax) 0.25 mg PO Q6HR PRN; Protocol PRN Reason: Anxiety Stop: 04/21/18 18:23 Calamine (Calamine) 1 appl TP Q4HR PRN PRN Reason: Itching Stop: 04/21/18 16:43 Last Admin: 02/21/18 03:33 Dose: 1 appl Dicyclomine HCl (Bentyl) 20 mg PO BID YRN Stop: 04/23/18 16:59 Last Admin: 02/24/18 08:07 Dose: 20 mg Hydroxyzine HCl (Atarax) 20 mg PO Q8H PRN; Protocol PRN Reason: Itching Stop: 04/21/18 12:47 Last Admin: 02/24/18 07:50 Dose: 20 mg Ceftriaxone Sodium 1 gm/ (Sodium Chloride) 50 mls @ 100 mls/hr IV Q24H YRN Stop: 04/22/18 05:59 Last Admin: 02/24/18 06:14 Dose: 100 mls/hr Dextrose/Sodium Chloride (D5-0.45ns) 1,000 mls @ 125 mls/hr IV .Q8H YRN Stop: 04/21/18 09:14 Last Admin: 02/23/18 15:21 Dose: 125 mls/hr Lorazepam (Ativan) 1 mg IVP Q4HR PRN; Protocol PRN Reason: Anxiety Stop: 04/21/18 13:25 Last Admin: 02/22/18 23:17 Dose: 1 mg Morphine Sulfate (Morphine) 1 mg IVP Q3H PRN PRN Reason: MODERATE PAIN Stop: 04/21/18 09:10 Last Admin: 02/22/18 10:07 Dose: 1 mg Morphine Sulfate (Morphine) 4 mg IV Q6HR PRN PRN Reason: Severe Pain Stop: 04/21/18 13:24 Last Admin: 02/24/18 02:47 Dose: 4 mg Nystatin (Mycostatin Cream) 1 appl TP DAILY YRN Stop: 04/22/18 08:59 Last Admin: 02/24/18 08:07 Dose: 1 appl Ondansetron HCl (Zofran) 4 mg IV Q6H PRN PRN Reason: Nausea / Vomiting Stop: 04/21/18 09:13 Last Admin: 02/24/18 06:16 Dose: 4 mg General: no acute distress, well developed, well nourished, cachectic HEENT: atraumatic, normocephalic, PERRLA Neck: supple, no thyromegaly Cardiovascular: S1S2, regular, irregular Lungs: clear to auscultation bilaterally, clear to percussion Abdomen: soft, no tender, no distended, no mass Extremities: no cyanosis, no clubbing, no edema Neurological: awake, alert, oriented Skin: intact Infectious Disease Assmt/Plan - Assessment Assessment: 1. Neutropenia. 2. Anemia. 3. Cirrhosis. - Plan Plan: CPM Nutritional Asmnt/Malnutr-PDOC - Dietary Evaluation Malnutrition Findings (Please click <Entered> for more info): Nutritional Asmnt/Malnutrition Start: 02/20/18 15: 00 Text: Status: Complete Freq: Document 02/20/18 15:00 TERRY (Rec: 02/20/18 15:19 TERRY [email or web address]) Nutritional Asmnt/Malnutrition Patient General Information Nutritional Screening High Risk Diagnosis severe gastroenteritis, leukopenia, sepsis Pertinent Medical Hx/Surgical Hx HTN Subjective Information Pt seen sitting on bed at time of visit, awake and alert. Pt reported she had diffulculty of taking down food. She tried to consumed half of lunch tray. Pt reported some N/V after taking food. Pt has concern of nutrition intake. Offered pt Boost per pt request in the afternoon. Current Diet Order/ Nutrition Support [facility] chopped Pertinent Medications D5-0.45ns, zofran Pertinent Labs 02/20 glucose 107 Nutritional Hx/Data Height 1.68 m Height (Calculated Centimeters) 167.6 Current Weight (lbs) 55.338 kg Weight (Calculated Kilograms) 55.3 Weight (Calculated Grams) 06517.3 [place] Body Weight 130 Body Mass Index (BMI) 19.7 Weight Status Approriate GI Symptoms GI Symptoms Nausea Vomitting Last BM no record Difficult in: None Skin Integrity/Comment: facial abrasion and scars Current %PO Poor (25-49%) Estimated Nutritional Goals BEE in Kcals: Using Current wt Calories/Kcals/Kg 25-30 Kcals Calculated 3487-3913 Protein: Using Current wt Protein g/k-1.2 Protein Calculated 55-66 Fluid: ml 1375-1650ml (1ml/kcal) Nutritional Problem 1. Problem Problem inadequate food intake Etiology N/V Signs/Symptoms: PO intake <=50% Malnutrition Alert Protein-Calorie Malnutrition N/A Is there a minimum of two criteria No selected? Query Text:Check all the applicable criteria. A minimum of two criteria are recommended for diagnosis of either severe or non-severe malnutrition. Intervention/Recommendation Comments 1. Continue with current diet as ordered. If pt likes boost, will continue sending with meal tray. 2. Monitor PO intake, wt, labs and skin integrity 3. F/U as high risk in 2-3 days, 02/22-02/23 Expected Outcomes/Goals Expected Outcomes/Goals 1. PO intake to meet at least 75% of nutritional needs. 2. Wt stability, skin to heal, improved GI function, labs to approach WNL.
--- NOTE | 2018-02-24 15:56 | General Progress Note ---
Subjective - Review of Systems Service Date: 02/24/18 Subjective: weak, cold Objective - Results Result Diagrams: 02/24/18 05:45 02/23/18 05:15 Recent Labs: Laboratory Last Values WBC 3.0 Th/cmm (4.8-10.8) L 02/24/18 05:45 RBC 3.74 Mil/cmm (3.80-5.10) L 02/24/18 05:45 Hgb 10.9 gm/dL (12-16) L 02/24/18 05:45 Hct 32.7 % (41.0-60) L 02/24/18 05:45 MCV 87.3 fl (81-100) 02/24/18 05:45 MCH 29.2 pg (27.0-31.0) 02/24/18 05:45 MCHC Differential 33.5 pg (28.0-36.0) 02/24/18 05:45 RDW 16.1 % (11.5-20.0) 02/24/18 05:45 Plt Count 233 Th/cmm (150-400) 02/24/18 05:45 MPV 6.7 fl 02/24/18 05:45 Neutrophils % 37.2 % (40.0-80.0) L 02/24/18 05:45 Band Neutrophils % 2 % (0-10) 02/22/18 07:55 Lymphocytes % 40.3 % (20.0-50.0) 02/24/18 05:45 Monocytes % 19.4 % (2.0-10.0) H 02/24/18 05:45 Eosinophils % 3.0 % (0.0-5.0) 02/24/18 05:45 Basophils % 0.1 % (0.0-2.0) 02/24/18 05:45 Neutrophils (Manual) 39 % (40-80) L 02/23/18 05:15 Lymphocytes 51 % (20-50) H 02/23/18 05:15 Monocytes 5 % (2-10) 02/23/18 05:15 Eosinophils 5 % (0-5) 02/23/18 05:15 Basophils 0 % (0-3) 02/22/18 07:55 Atypical Lymphocytes 4 % 02/21/18 06:02 Sodium 132 mEq/L (136-145) L 02/23/18 05:15 Potassium 4.6 mEq/L (3.5-5.1) 02/23/18 05:15 Chloride 100 mEq/L (98-107) 02/23/18 05:15 Carbon Dioxide 25.6 mEq/L (21.0-31.0) 02/23/18 05:15 Anion Gap 11.0 (7.0-16.0) 02/23/18 05:15 BUN 11 mg/dL (7-25) 02/23/18 05:15 Creatinine 0.8 mg/dL (0.6-1.2) 02/23/18 05:15 Est GFR ( Amer) > 60.0 ml/min (>90) 02/23/18 05:15 Est GFR (Non-Af Amer) > 60.0 ml/min 02/23/18 05:15 BUN/Creatinine Ratio 13.8 02/23/18 05:15 Glucose 103 mg/dL (70-105) 02/23/18 05:15 Whole Bld Lactic Acid 2.19 mmol/L (0.60-1.99) H* 02/20/18 07:15 Calcium 9.4 mg/dL (8.6-10.3) 02/23/18 05:15 Total Bilirubin 0.2 mg/dL (0.3-1.0) L 02/23/18 05:15 Direct Bilirubin 0.09 mg/dL (0.0-0.2) 02/21/18 06:02 AST 46 U/L (13-39) H 02/23/18 05:15 ALT 27 U/L (7-52) 02/23/18 05:15 Alkaline Phosphatase 59 U/L (34-104) 02/23/18 05:15 Total Protein 6.8 gm/dL (6.0-8.3) 02/23/18 05:15 Albumin 3.9 gm/dL (3.7-5.3) 02/23/18 05:15 Globulin 2.9 gm/dL 02/23/18 05:15 Albumin/Globulin Ratio 1.3 (1.0-1.8) 02/23/18 05:15 Amylase 94 U/L (29-103) 02/20/18 04:40 Lipase 84 U/L (11-82) H 02/23/18 05:15 Serum , Qual NEGATIVE (NEGATIVE) 02/20/18 04:40 Urine Source CLEAN C 02/20/18 04:00 Urine Color YELLOW 02/20/18 04:00 Urine Clarity HAZY (CLEAR) 02/20/18 04:00 Urine pH 6.0 (4.6 - 8.0) 02/20/18 04:00 Ur Specific [place] >= 1.030 (1.005-1.030) 02/20/18 04:00 Urine Protein TRACE mg/dL (NEGATIVE) 02/20/18 04:00 Urine Glucose (UA) NEGATIVE mg/dL (NEGATIVE) 02/20/18 04:00 Urine Ketones NEGATIVE mg/dL (NEGATIVE) 02/20/18 04:00 Urine Blood NEGATIVE (NEGATIVE) 02/20/18 04:00 Urine Nitrate NEGATIVE (NEGATIVE) 02/20/18 04:00 Urine Bilirubin NEGATIVE (NEGATIVE) 02/20/18 04:00 Urine Urobilinogen 0.2 E.U./dL (0.2 - 1.0) 02/20/18 04:00 Ur Leukocyte Esterase NEGATIVE (NEGATIVE) 02/20/18 04:00 Urine RBC 0-2 /hpf (0-5) 02/20/18 04:00 Urine WBC 0-2 /hpf (0-5) 02/20/18 04:00 Ur Epithelial Cells FEW /lpf (FEW) 02/20/18 04:00 Calcium Oxalate Crystal MANY /hpf 02/20/18 04:00 Urine Bacteria FEW /hpf (NONE SEEN) 02/20/18 04:00 Urine Opiates Screen POSITIVE (NEGATIVE) H 02/20/18 11:20 Urine Methadone Screen NEGATIVE (NEGATIVE) 02/20/18 11:20 Ur Barbiturates Screen NEGATIVE (NEGATIVE) 02/20/18 11:20 Ur Tricyclics Screen NEGATIVE (NEGATIVE) 02/20/18 11:20 Ur Phencyclidine Scrn NEGATIVE (NEGATIVE) 02/20/18 11:20 Amphetamines Screen NEGATIVE (NEGATIVE) 02/20/18 11:20 U Methamphetamines Scrn NEGATIVE (NEGATIVE) 02/20/18 11:20 U Benzodiazepines Scrn NEGATIVE (NEGATIVE) 02/20/18 11:20 U Cocaine Metab Screen NEGATIVE (NEGATIVE) 02/20/18 11:20 U Cannabinoids Screen NEGATIVE (NEGATIVE) 02/20/18 11:20 Ethyl Alcohol 102 mg/dL (0-10) H 02/20/18 10:40 RPR NONREACTIVE (NONREACTIVE) 02/20/18 10:40 T.pallidum Ab (FTA-ABS) Non Reactive (Non Reactive) 02/20/18 10:40 Hepatitis A IgM Ab Negative (Negative) 02/20/18 10:40 Hep Bs Antigen Negative (Negative) 02/20/18 10:40 Hep B Core IgM Ab Negative (Negative) 02/20/18 10:40 Hepatitis C Antibody <0.1 s/co ratio (0.0-0.9) 02/20/18 10:40 HIV 1&2 Antibody Screen NEGATIVE (NEG) 02/20/18 04:40 - Physical Exam Vitals and I&O: Vital Signs Temp 96.4 F 02/24/18 11:55 Pulse 67 02/24/18 11:55 Resp 19 02/24/18 11:55 BP 116/70 02/24/18 11:55 Pulse Ox 100 02/24/18 11:55 Intake & Output 02/23/18 02/24/18 02/24/18 18:59 06:59 18:59 Intake Total 2020 Output Total 1 Balance 2020 - Weight (lbs) 62.596 kg 61.008 kg 60.328 kg Intake: Intake, IV Amount 1000 D5-0.45NS 1,000 ml @ 125 1000 mls/hr IV .Q8H [facility] Rx#: [id number] Oral 1020 Output: Stool 1 Other: # Voids 3 4 # Bowel Movements 1 Weight Source Estimated Bedscale Bedscale Active Medications: Current Medications Alprazolam (Xanax) 0.25 mg PO Q6HR PRN; Protocol PRN Reason: Anxiety Stop: 04/21/18 18:23 Calamine (Calamine) 1 appl TP Q4HR PRN PRN Reason: Itching Stop: 04/21/18 16:43 Last Admin: 02/21/18 03:33 Dose: 1 appl Dicyclomine HCl (Bentyl) 20 mg PO BID YRN Stop: 04/23/18 16:59 Last Admin: 02/24/18 08:07 Dose: 20 mg Hydroxyzine HCl (Atarax) 20 mg PO Q8H PRN; Protocol PRN Reason: Itching Stop: 04/21/18 12:47 Last Admin: 02/24/18 07:50 Dose: 20 mg Ceftriaxone Sodium 1 gm/ (Sodium Chloride) 50 mls @ 100 mls/hr IV Q24H YRN Stop: 04/22/18 05:59 Last Admin: 02/24/18 06:14 Dose: 100 mls/hr Dextrose/Sodium Chloride (D5-0.45ns) 1,000 mls @ 125 mls/hr IV .Q8H YRN Stop: 04/21/18 09:14 Last Admin: 02/23/18 15:21 Dose: 125 mls/hr Lorazepam (Ativan) 1 mg IVP Q4HR PRN; Protocol PRN Reason: Anxiety Stop: 04/21/18 13:25 Last Admin: 02/22/18 23:17 Dose: 1 mg Morphine Sulfate (Morphine) 1 mg IVP Q3H PRN PRN Reason: MODERATE PAIN Stop: 04/21/18 09:10 Last Admin: 02/22/18 10:07 Dose: 1 mg Morphine Sulfate (Morphine) 4 mg IV Q6HR PRN PRN Reason: Severe Pain Stop: 04/21/18 13:24 Last Admin: 02/24/18 02:47 Dose: 4 mg Nystatin (Mycostatin Cream) 1 appl TP DAILY YRN Stop: 04/22/18 08:59 Last Admin: 02/24/18 08:07 Dose: 1 appl Ondansetron HCl (Zofran) 4 mg IV Q6H PRN PRN Reason: Nausea / Vomiting Stop: 04/21/18 09:13 Last Admin: 02/24/18 06:16 Dose: 4 mg General: Alert HEENT: Atraumatic Neck: Supple Cardiovascular: Regular rate Lungs: Clear to auscultation Abdomen: Soft Assessment/Plan - Assessment Assessment: * Leukopenia secondary to liver disease and viral illness; improving * Chronic liver disease Nutritional Asmnt/Malnutr-PDOC - Dietary Evaluation Malnutrition Findings (Please click <Entered> for more info): Nutritional Asmnt/Malnutrition Start: 02/20/18 15: 00 Text: Status: Complete Freq: Document 02/20/18 15:00 JOLEEN (Rec: 02/20/18 15:19 JOLEEN [email or web address]) Nutritional Asmnt/Malnutrition Patient General Information Nutritional Screening High Risk Diagnosis severe gastroenteritis, leukopenia, sepsis Pertinent Medical Hx/Surgical Hx HTN Subjective Information Pt seen sitting on bed at time of visit, awake and alert. Pt reported she had diffulculty of taking down food. She tried to consumed half of lunch tray. Pt reported some N/V after taking food. Pt has concern of nutrition intake. Offered pt Boost per pt request in the afternoon. Current Diet Order/ Nutrition Support [facility] chopped Pertinent Medications D5-0.45ns, zofran Pertinent Labs 02/20 glucose 107 Nutritional Hx/Data Height 1.68 m Height (Calculated Centimeters) 167.6 Current Weight (lbs) 55.338 kg Weight (Calculated Kilograms) 55.3 Weight (Calculated Grams) 33004.3 [place] Body Weight 130 Body Mass Index (BMI) 19.7 Weight Status Approriate GI Symptoms GI Symptoms Nausea Vomitting Last BM no record Difficult in: None Skin Integrity/Comment: facial abrasion and scars Current %PO Poor (25-49%) Estimated Nutritional Goals BEE in Kcals: Using Current wt Calories/Kcals/Kg 25-30 Kcals Calculated 1474-5878 Protein: Using Current wt Protein g/k-1.2 Protein Calculated 55-66 Fluid: ml 1375-1650ml (1ml/kcal) Nutritional Problem 1. Problem Problem inadequate food intake Etiology N/V Signs/Symptoms: PO intake <=50% Malnutrition Alert Protein-Calorie Malnutrition N/A Is there a minimum of two criteria No selected? Query Text:Check all the applicable criteria. A minimum of two criteria are recommended for diagnosis of either severe or non-severe malnutrition. Intervention/Recommendation Comments 1. Continue with current diet as ordered. If pt likes boost, will continue sending with meal tray. 2. Monitor PO intake, wt, labs and skin integrity 3. F/U as high risk in 2-3 days, 02/22-02/23 Expected Outcomes/Goals Expected Outcomes/Goals 1. PO intake to meet at least 75% of nutritional needs. 2. Wt stability, skin to heal, improved GI function, labs to approach WNL.
[2018-02-24] MEDS: D5-0.45NS 1,000 ML IV SCH (20:09)
--- NOTE | 2018-02-24 20:15 | Internal Medicine Prog Note ---
Internal Medicine Subjective - Subjective Service Date: 02/24/18 Patient seen and examined:: with staff Patient is:: awake Per staff patient has:: tolerating meds Internal Medicine Objective - Results Result Diagrams: 02/24/18 05:45 02/23/18 05:15 Recent Labs: Laboratory Last Values WBC 3.0 Th/cmm (4.8-10.8) L 02/24/18 05:45 RBC 3.74 Mil/cmm (3.80-5.10) L 02/24/18 05:45 Hgb 10.9 gm/dL (12-16) L 02/24/18 05:45 Hct 32.7 % (41.0-60) L 02/24/18 05:45 MCV 87.3 fl (81-100) 02/24/18 05:45 MCH 29.2 pg (27.0-31.0) 02/24/18 05:45 MCHC Differential 33.5 pg (28.0-36.0) 02/24/18 05:45 RDW 16.1 % (11.5-20.0) 02/24/18 05:45 Plt Count 233 Th/cmm (150-400) 02/24/18 05:45 MPV 6.7 fl 02/24/18 05:45 Neutrophils % 37.2 % (40.0-80.0) L 02/24/18 05:45 Band Neutrophils % 2 % (0-10) 02/22/18 07:55 Lymphocytes % 40.3 % (20.0-50.0) 02/24/18 05:45 Monocytes % 19.4 % (2.0-10.0) H 02/24/18 05:45 Eosinophils % 3.0 % (0.0-5.0) 02/24/18 05:45 Basophils % 0.1 % (0.0-2.0) 02/24/18 05:45 Neutrophils (Manual) 39 % (40-80) L 02/23/18 05:15 Lymphocytes 51 % (20-50) H 02/23/18 05:15 Monocytes 5 % (2-10) 02/23/18 05:15 Eosinophils 5 % (0-5) 02/23/18 05:15 Basophils 0 % (0-3) 02/22/18 07:55 Atypical Lymphocytes 4 % 02/21/18 06:02 Sodium 132 mEq/L (136-145) L 02/23/18 05:15 Potassium 4.6 mEq/L (3.5-5.1) 02/23/18 05:15 Chloride 100 mEq/L (98-107) 02/23/18 05:15 Carbon Dioxide 25.6 mEq/L (21.0-31.0) 02/23/18 05:15 Anion Gap 11.0 (7.0-16.0) 02/23/18 05:15 BUN 11 mg/dL (7-25) 02/23/18 05:15 Creatinine 0.8 mg/dL (0.6-1.2) 02/23/18 05:15 Est GFR ( Amer) > 60.0 ml/min (>90) 02/23/18 05:15 Est GFR (Non-Af Amer) > 60.0 ml/min 02/23/18 05:15 BUN/Creatinine Ratio 13.8 02/23/18 05:15 Glucose 103 mg/dL (70-105) 02/23/18 05:15 Whole Bld Lactic Acid 2.19 mmol/L (0.60-1.99) H* 02/20/18 07:15 Calcium 9.4 mg/dL (8.6-10.3) 02/23/18 05:15 Total Bilirubin 0.2 mg/dL (0.3-1.0) L 02/23/18 05:15 Direct Bilirubin 0.09 mg/dL (0.0-0.2) 02/21/18 06:02 AST 46 U/L (13-39) H 02/23/18 05:15 ALT 27 U/L (7-52) 02/23/18 05:15 Alkaline Phosphatase 59 U/L (34-104) 02/23/18 05:15 Total Protein 6.8 gm/dL (6.0-8.3) 02/23/18 05:15 Albumin 3.9 gm/dL (3.7-5.3) 02/23/18 05:15 Globulin 2.9 gm/dL 02/23/18 05:15 Albumin/Globulin Ratio 1.3 (1.0-1.8) 02/23/18 05:15 Amylase 94 U/L (29-103) 02/20/18 04:40 Lipase 84 U/L (11-82) H 02/23/18 05:15 Serum , Qual NEGATIVE (NEGATIVE) 02/20/18 04:40 Urine Source CLEAN C 02/20/18 04:00 Urine Color YELLOW 02/20/18 04:00 Urine Clarity HAZY (CLEAR) 02/20/18 04:00 Urine pH 6.0 (4.6 - 8.0) 02/20/18 04:00 Ur Specific [place] >= 1.030 (1.005-1.030) 02/20/18 04:00 Urine Protein TRACE mg/dL (NEGATIVE) 02/20/18 04:00 Urine Glucose (UA) NEGATIVE mg/dL (NEGATIVE) 02/20/18 04:00 Urine Ketones NEGATIVE mg/dL (NEGATIVE) 02/20/18 04:00 Urine Blood NEGATIVE (NEGATIVE) 02/20/18 04:00 Urine Nitrate NEGATIVE (NEGATIVE) 02/20/18 04:00 Urine Bilirubin NEGATIVE (NEGATIVE) 02/20/18 04:00 Urine Urobilinogen 0.2 E.U./dL (0.2 - 1.0) 02/20/18 04:00 Ur Leukocyte Esterase NEGATIVE (NEGATIVE) 02/20/18 04:00 Urine RBC 0-2 /hpf (0-5) 02/20/18 04:00 Urine WBC 0-2 /hpf (0-5) 02/20/18 04:00 Ur Epithelial Cells FEW /lpf (FEW) 02/20/18 04:00 Calcium Oxalate Crystal MANY /hpf 02/20/18 04:00 Urine Bacteria FEW /hpf (NONE SEEN) 02/20/18 04:00 Urine Opiates Screen POSITIVE (NEGATIVE) H 02/20/18 11:20 Urine Methadone Screen NEGATIVE (NEGATIVE) 02/20/18 11:20 Ur Barbiturates Screen NEGATIVE (NEGATIVE) 02/20/18 11:20 Ur Tricyclics Screen NEGATIVE (NEGATIVE) 02/20/18 11:20 Ur Phencyclidine Scrn NEGATIVE (NEGATIVE) 02/20/18 11:20 Amphetamines Screen NEGATIVE (NEGATIVE) 02/20/18 11:20 U Methamphetamines Scrn NEGATIVE (NEGATIVE) 02/20/18 11:20 U Benzodiazepines Scrn NEGATIVE (NEGATIVE) 02/20/18 11:20 U Cocaine Metab Screen NEGATIVE (NEGATIVE) 02/20/18 11:20 U Cannabinoids Screen NEGATIVE (NEGATIVE) 02/20/18 11:20 Ethyl Alcohol 102 mg/dL (0-10) H 02/20/18 10:40 RPR NONREACTIVE (NONREACTIVE) 02/20/18 10:40 T.pallidum Ab (FTA-ABS) Non Reactive (Non Reactive) 02/20/18 10:40 Hepatitis A IgM Ab Negative (Negative) 02/20/18 10:40 Hep Bs Antigen Negative (Negative) 02/20/18 10:40 Hep B Core IgM Ab Negative (Negative) 02/20/18 10:40 Hepatitis C Antibody <0.1 s/co ratio (0.0-0.9) 02/20/18 10:40 HIV 1&2 Antibody Screen NEGATIVE (NEG) 02/20/18 04:40 - Physical Exam Vitals and I&O: Vital Signs Temp 97.5 F 02/24/18 20:00 Pulse 85 02/24/18 20:00 Resp 18 02/24/18 20:00 BP 126/84 02/24/18 20:00 Pulse Ox 99 02/24/18 20:00 Intake & Output 02/24/18 02/24/18 02/25/18 06:59 18:59 06:59 Intake Total 1000 Output Total 2 Balance 1000 -2 Weight (lbs) 61.008 kg 60.328 kg Intake: Intake, IV Amount 1000 D5-0.45NS 1,000 ml @ 125 1000 mls/hr IV .Q8H YRN Rx#: [id number] Output: Stool 2 Other: # Voids 2 Weight Source Bedscale Bedscale Active Medications: Current Medications Alprazolam (Xanax) 0.25 mg PO Q6HR PRN; Protocol PRN Reason: Anxiety Stop: 04/21/18 18:23 Calamine (Calamine) 1 appl TP Q4HR PRN PRN Reason: Itching Stop: 04/21/18 16:43 Last Admin: 02/21/18 03:33 Dose: 1 appl Dicyclomine HCl (Bentyl) 20 mg PO BID YRN Stop: 04/23/18 16:59 Last Admin: 02/24/18 16:08 Dose: 20 mg Hydroxyzine HCl (Atarax) 20 mg PO Q8H PRN; Protocol PRN Reason: Itching Stop: 04/21/18 12:47 Last Admin: 02/24/18 19:35 Dose: 20 mg Ceftriaxone Sodium 1 gm/ (Sodium Chloride) 50 mls @ 100 mls/hr IV Q24H YRN Stop: 04/22/18 05:59 Last Admin: 02/24/18 06:14 Dose: 100 mls/hr Dextrose/Sodium Chloride (D5-0.45ns) 1,000 mls @ 125 mls/hr IV .Q8H YRN Stop: 04/21/18 09:14 Last Admin: 02/24/18 20:09 Dose: 125 mls/hr Lorazepam (Ativan) 1 mg IVP Q4HR PRN; Protocol PRN Reason: Anxiety Stop: 04/21/18 13:25 Last Admin: 02/22/18 23:17 Dose: 1 mg Morphine Sulfate (Morphine) 1 mg IVP Q3H PRN PRN Reason: MODERATE PAIN Stop: 04/21/18 09:10 Last Admin: 02/22/18 10:07 Dose: 1 mg Morphine Sulfate (Morphine) 4 mg IV Q6HR PRN PRN Reason: Severe Pain Stop: 04/21/18 13:24 Last Admin: 02/24/18 20:10 Dose: 4 mg Nystatin (Mycostatin Cream) 1 appl TP DAILY YRN Stop: 04/22/18 08:59 Last Admin: 02/24/18 08:07 Dose: 1 appl Ondansetron HCl (Zofran) 4 mg IV Q6H PRN PRN Reason: Nausea / Vomiting Stop: 04/21/18 09:13 Last Admin: 02/24/18 06:16 Dose: 4 mg General: alert HEENT: PERRLA Lungs: CTAB Internal Medicine Assmt/Plan - Assessment Assessment: 1. Neutropenia. 2. Anemia. 3. Cirrhosis. - Plan Plan: cpm Nutritional Asmnt/Malnutr-PDOC - Dietary Evaluation Malnutrition Findings (Please click <Entered> for more info): Nutritional Asmnt/Malnutrition Start: 02/20/18 15: 00 Text: Status: Complete Freq: Document 02/20/18 15:00 JOLEEN (Rec: 02/20/18 15:19 JOLEEN [email or web address]) Nutritional Asmnt/Malnutrition Patient General Information Nutritional Screening High Risk Diagnosis severe gastroenteritis, leukopenia, sepsis Pertinent Medical Hx/Surgical Hx HTN Subjective Information Pt seen sitting on bed at time of visit, awake and alert. Pt reported she had diffulculty of taking down food. She tried to consumed half of lunch tray. Pt reported some N/V after taking food. Pt has concern of nutrition intake. Offered pt Boost per pt request in the afternoon. Current Diet Order/ Nutrition Support [facility] chopped Pertinent Medications D5-0.45ns, zofran Pertinent Labs 02/20 glucose 107 Nutritional Hx/Data Height 1.68 m Height (Calculated Centimeters) 167.6 Current Weight (lbs) 55.338 kg Weight (Calculated Kilograms) 55.3 Weight (Calculated Grams) 04200.3 [place] Body Weight 130 Body Mass Index (BMI) 19.7 Weight Status Approriate GI Symptoms GI Symptoms Nausea Vomitting Last BM no record Difficult in: None Skin Integrity/Comment: facial abrasion and scars Current %PO Poor (25-49%) Estimated Nutritional Goals BEE in Kcals: Using Current wt Calories/Kcals/Kg 25-30 Kcals Calculated 7586-4595 Protein: Using Current wt Protein g/k-1.2 Protein Calculated 55-66 Fluid: ml 1375-1650ml (1ml/kcal) Nutritional Problem 1. Problem Problem inadequate food intake Etiology N/V Signs/Symptoms: PO intake <=50% Malnutrition Alert Protein-Calorie Malnutrition N/A Is there a minimum of two criteria No selected? Query Text:Check all the applicable criteria. A minimum of two criteria are recommended for diagnosis of either severe or non-severe malnutrition. Intervention/Recommendation Comments 1. Continue with current diet as ordered. If pt likes boost, will continue sending with meal tray. 2. Monitor PO intake, wt, labs and skin integrity 3. F/U as high risk in 2-3 days, 02/22-02/23 Expected Outcomes/Goals Expected Outcomes/Goals 1. PO intake to meet at least 75% of nutritional needs. 2. Wt stability, skin to heal, improved GI function, labs to approach WNL.
[2018-02-25] MEDS: Morphine Sulfate 4 mg/mL 1mL Syr IV PRN ×2 (02:03→20:06)
[2018-02-25] MEDS: D5-0.45NS 1,000 ML IV SCH ×2 (03:25→15:55)
[2018-02-25] MEDS: cefTRIAXone 1 GM in Sodium Chloride 0.9% 50 ML IV SCH (05:38)
[2018-02-25 06:58] LABS: EOSINOPHILE ABSOLUTE 0.1 Th/cmm (0.1-0.4); HEMOGLOBIN 10.6 gm/dL (12-16); LYMPHOCYTE ABSOLUTE 1.4 Th/cmm (1.5-3.0); MEAN PLATELET VOLUME 6.4 fl; MONOCYTE ABSOLUTE 0.5 Th/cmm (0.3-1.0)
[2018-02-25 07:11] LABS: % BASOPHILS 0.2 % (0.0-2.0); % EOSINOPHILS 2.5 % (0.0-5.0); % LYMPHOCYTES 49.1 % (20.0-50.0); % MONOCYTES 15.6 % (2.0-10.0); % NEUTROPHILS 32.6 % (40.0-80.0); HEMATOCRIT 32.5 % (41.0-60); MEAN CORPUSCULAR HEMOGLOBIN 28.7 pg (27.0-31.0); MEAN CORPUSCULAR HGB CONC 32.7 pg (28.0-36.0); PLATELET COUNT 275 Th/cmm (150-400); RED CELL DISTRIBUTION WIDTH 16.3 % (11.5-20.0)
[2018-02-25] MEDS: Dicyclomine 10 mg Cap PO SCH ×2 (08:26→16:03)
[2018-02-25] MEDS: Nystatin Cream 100,000 u/gm Cream 15 gm TP SCH (08:29)
[2018-02-25] MEDS ORDERED: Probiotic Screen MC PRN (12:28)
[2018-02-25] MEDS: Lactobacillus Rhamnosus GG 15 Billion CFU CAP.SPRINK PO SCH (13:28)
[2018-02-25] MEDS ORDERED: Magnesium Citrate 1.75 GM/300 mL Bottle PO ONE (14:00)
--- NOTE | 2018-02-25 14:13 | General Progress Note ---
Subjective - Review of Systems Events since last encounter: no distress Objective - Results Result Diagrams: 02/25/18 06:28 02/23/18 05:15 Recent Labs: Laboratory Last Values WBC 3.0 Th/cmm (4.8-10.8) L 02/25/18 06:28 RBC 3.70 Mil/cmm (3.80-5.10) L 02/25/18 06:28 Hgb 10.6 gm/dL (12-16) L 02/25/18 06:28 Hct 32.5 % (41.0-60) L 02/25/18 06:28 MCV 88.0 fl (81-100) 02/25/18 06:28 MCH 28.7 pg (27.0-31.0) 02/25/18 06:28 MCHC Differential 32.7 pg (28.0-36.0) 02/25/18 06:28 RDW 16.3 % (11.5-20.0) 02/25/18 06:28 Plt Count 275 Th/cmm (150-400) 02/25/18 06:28 MPV 6.4 fl 02/25/18 06:28 Neutrophils % 32.6 % (40.0-80.0) L 02/25/18 06:28 Band Neutrophils % 2 % (0-10) 02/22/18 07:55 Lymphocytes % 49.1 % (20.0-50.0) 02/25/18 06:28 Monocytes % 15.6 % (2.0-10.0) H 02/25/18 06:28 Eosinophils % 2.5 % (0.0-5.0) 02/25/18 06:28 Basophils % 0.2 % (0.0-2.0) 02/25/18 06:28 Neutrophils (Manual) 39 % (40-80) L 02/23/18 05:15 Lymphocytes 51 % (20-50) H 02/23/18 05:15 Monocytes 5 % (2-10) 02/23/18 05:15 Eosinophils 5 % (0-5) 02/23/18 05:15 Basophils 0 % (0-3) 02/22/18 07:55 Atypical Lymphocytes 4 % 02/21/18 06:02 Sodium 132 mEq/L (136-145) L 02/23/18 05:15 Potassium 4.6 mEq/L (3.5-5.1) 02/23/18 05:15 Chloride 100 mEq/L (98-107) 02/23/18 05:15 Carbon Dioxide 25.6 mEq/L (21.0-31.0) 02/23/18 05:15 Anion Gap 11.0 (7.0-16.0) 02/23/18 05:15 BUN 11 mg/dL (7-25) 02/23/18 05:15 Creatinine 0.8 mg/dL (0.6-1.2) 02/23/18 05:15 Est GFR ( Amer) > 60.0 ml/min (>90) 02/23/18 05:15 Est GFR (Non-Af Amer) > 60.0 ml/min 02/23/18 05:15 BUN/Creatinine Ratio 13.8 02/23/18 05:15 Glucose 103 mg/dL (70-105) 02/23/18 05:15 Whole Bld Lactic Acid 2.19 mmol/L (0.60-1.99) H* 02/20/18 07:15 Calcium 9.4 mg/dL (8.6-10.3) 02/23/18 05:15 Total Bilirubin 0.2 mg/dL (0.3-1.0) L 02/23/18 05:15 Direct Bilirubin 0.09 mg/dL (0.0-0.2) 02/21/18 06:02 AST 46 U/L (13-39) H 02/23/18 05:15 ALT 27 U/L (7-52) 02/23/18 05:15 Alkaline Phosphatase 59 U/L (34-104) 02/23/18 05:15 Total Protein 6.8 gm/dL (6.0-8.3) 02/23/18 05:15 Albumin 3.9 gm/dL (3.7-5.3) 02/23/18 05:15 Globulin 2.9 gm/dL 02/23/18 05:15 Albumin/Globulin Ratio 1.3 (1.0-1.8) 02/23/18 05:15 Amylase 94 U/L (29-103) 02/20/18 04:40 Lipase 84 U/L (11-82) H 02/23/18 05:15 Serum , Qual NEGATIVE (NEGATIVE) 02/20/18 04:40 Urine Source CLEAN C 02/20/18 04:00 Urine Color YELLOW 02/20/18 04:00 Urine Clarity HAZY (CLEAR) 02/20/18 04:00 Urine pH 6.0 (4.6 - 8.0) 02/20/18 04:00 Ur Specific [place] >= 1.030 (1.005-1.030) 02/20/18 04:00 Urine Protein TRACE mg/dL (NEGATIVE) 02/20/18 04:00 Urine Glucose (UA) NEGATIVE mg/dL (NEGATIVE) 02/20/18 04:00 Urine Ketones NEGATIVE mg/dL (NEGATIVE) 02/20/18 04:00 Urine Blood NEGATIVE (NEGATIVE) 02/20/18 04:00 Urine Nitrate NEGATIVE (NEGATIVE) 02/20/18 04:00 Urine Bilirubin NEGATIVE (NEGATIVE) 02/20/18 04:00 Urine Urobilinogen 0.2 E.U./dL (0.2 - 1.0) 02/20/18 04:00 Ur Leukocyte Esterase NEGATIVE (NEGATIVE) 02/20/18 04:00 Urine RBC 0-2 /hpf (0-5) 02/20/18 04:00 Urine WBC 0-2 /hpf (0-5) 02/20/18 04:00 Ur Epithelial Cells FEW /lpf (FEW) 02/20/18 04:00 Calcium Oxalate Crystal MANY /hpf 02/20/18 04:00 Urine Bacteria FEW /hpf (NONE SEEN) 02/20/18 04:00 Urine Opiates Screen POSITIVE (NEGATIVE) H 02/20/18 11:20 Urine Methadone Screen NEGATIVE (NEGATIVE) 02/20/18 11:20 Ur Barbiturates Screen NEGATIVE (NEGATIVE) 02/20/18 11:20 Ur Tricyclics Screen NEGATIVE (NEGATIVE) 02/20/18 11:20 Ur Phencyclidine Scrn NEGATIVE (NEGATIVE) 02/20/18 11:20 Amphetamines Screen NEGATIVE (NEGATIVE) 02/20/18 11:20 U Methamphetamines Scrn NEGATIVE (NEGATIVE) 02/20/18 11:20 U Benzodiazepines Scrn NEGATIVE (NEGATIVE) 02/20/18 11:20 U Cocaine Metab Screen NEGATIVE (NEGATIVE) 02/20/18 11:20 U Cannabinoids Screen NEGATIVE (NEGATIVE) 02/20/18 11:20 Ethyl Alcohol 102 mg/dL (0-10) H 02/20/18 10:40 RPR NONREACTIVE (NONREACTIVE) 02/20/18 10:40 T.pallidum Ab (FTA-ABS) Non Reactive (Non Reactive) 02/20/18 10:40 Hepatitis A IgM Ab Negative (Negative) 02/20/18 10:40 Hep Bs Antigen Negative (Negative) 02/20/18 10:40 Hep B Core IgM Ab Negative (Negative) 02/20/18 10:40 Hepatitis C Antibody <0.1 s/co ratio (0.0-0.9) 02/20/18 10:40 HIV 1&2 Antibody Screen NEGATIVE (NEG) 02/20/18 04:40 - Physical Exam Vitals and I&O: Vital Signs Temp 98.2 F 02/25/18 11:25 Pulse 70 02/25/18 11:25 Resp 18 02/25/18 11:25 BP 122/75 02/25/18 11:25 Pulse Ox 99 02/25/18 11:25 Intake & Output 02/24/18 02/25/18 02/25/18 18:59 06:59 18:59 Intake Total 908.333 Output Total 2 1 Balance -2 907.333 Weight (lbs) 60.328 kg 62.142 kg Intake: Intake, IV Amount 908.333 D5-0.45NS 1,000 ml @ 125 908.333 mls/hr IV .Q8H [facility] Rx#: [id number] Output: Stool 2 1 Other: # Voids 2 3 Stool Characteristics Soft Soft Formed Formed Weight Source Bedscale Bedscale Active Medications: Current Medications Alprazolam (Xanax) 0.25 mg PO Q6HR PRN; Protocol PRN Reason: Anxiety Stop: 04/21/18 18:23 Bisacodyl (Dulcolax 5 Mg Ec Tab) 10 mg PO X1 ONE Stop: 02/25/18 16:01 Calamine (Calamine) 1 appl TP Q4HR PRN PRN Reason: Itching Stop: 04/21/18 16:43 Last Admin: 02/21/18 03:33 Dose: 1 appl Dicyclomine HCl (Bentyl) 20 mg PO BID YRN Stop: 04/23/18 16:59 Last Admin: 02/25/18 08:26 Dose: 20 mg Hydroxyzine HCl (Atarax) 20 mg PO Q8H PRN; Protocol PRN Reason: Itching Stop: 04/21/18 12:47 Last Admin: 02/25/18 11:19 Dose: 20 mg Ceftriaxone Sodium 1 gm/ (Sodium Chloride) 50 mls @ 100 mls/hr IV Q24H YRN Stop: 04/22/18 05:59 Last Admin: 02/25/18 05:38 Dose: 100 mls/hr Dextrose/Sodium Chloride (D5-0.45ns) 1,000 mls @ 125 mls/hr IV .Q8H YRN Stop: 04/21/18 09:14 Last Admin: 02/25/18 03:25 Dose: 125 mls/hr Lactobacillus Rhamnosus (Culturelle 15b) 1 each PO DAILY YRN Stop: 04/26/18 13:59 Last Admin: 02/25/18 13:28 Dose: 1 each Lorazepam (Ativan) 1 mg IVP Q4HR PRN; Protocol PRN Reason: Anxiety Stop: 04/21/18 13:25 Last Admin: 02/22/18 23:17 Dose: 1 mg Miscellaneous (Probiotic Screen) 1 ea MC PRN PRN PRN Reason: PROTOCOL Stop: 04/26/18 12:27 Morphine Sulfate (Morphine) 1 mg IVP Q3H PRN PRN Reason: MODERATE PAIN Stop: 04/21/18 09:10 Last Admin: 02/22/18 10:07 Dose: 1 mg Morphine Sulfate (Morphine) 4 mg IV Q6HR PRN PRN Reason: Severe Pain Stop: 04/21/18 13:24 Last Admin: 02/25/18 02:03 Dose: 4 mg Nystatin (Mycostatin Cream) 1 appl TP DAILY YRN Stop: 04/22/18 08:59 Last Admin: 02/25/18 08:29 Dose: 1 appl Ondansetron HCl (Zofran) 4 mg IV Q6H PRN PRN Reason: Nausea / Vomiting Stop: 04/21/18 09:13 Last Admin: 02/25/18 09:38 Dose: 4 mg Polyethylene Glycol/Electrolytes (Golytely) 4,000 ml PO X1 ONE Stop: 02/25/18 18:31 General: Alert HEENT: Atraumatic Neck: Supple Cardiovascular: Regular rate Lungs: Clear to auscultation Abdomen: Soft Assessment/Plan - Assessment Assessment: 1. Neutropenia. 2. Anemia. 3. Cirrhosis. - Plan Plan: cpm Nutritional Asmnt/Malnutr-PDOC - Dietary Evaluation Malnutrition Findings (Please click <Entered> for more info): Nutritional Asmnt/Malnutrition Start: 02/20/18 15: 00 Text: Status: Complete Freq: Document 02/20/18 15:00 SHANTELLEJOLEEN (Rec: 02/20/18 15:[email or web address] Nutritional Asmnt/Malnutrition Patient General Information Nutritional Screening High Risk Diagnosis severe gastroenteritis, leukopenia, sepsis Pertinent Medical Hx/Surgical Hx HTN Subjective Information Pt seen sitting on bed at time of visit, awake and alert. Pt reported she had diffulculty of taking down food. She tried to consumed half of lunch tray. Pt reported some N/V after taking food. Pt has concern of nutrition intake. Offered pt Boost per pt request in the afternoon. Current Diet Order/ Nutrition Support [facility] chopped Pertinent Medications D5-0.45ns, zofran Pertinent Labs 02/20 glucose 107 Nutritional Hx/Data Height 1.68 m Height (Calculated Centimeters) 167.6 Current Weight (lbs) 55.338 kg Weight (Calculated Kilograms) 55.3 Weight (Calculated Grams) 54715.3 [place] Body Weight 130 Body Mass Index (BMI) 19.7 Weight Status Approriate GI Symptoms GI Symptoms Nausea Vomitting Last BM no record Difficult in: None Skin Integrity/Comment: facial abrasion and scars Current %PO Poor (25-49%) Estimated Nutritional Goals BEE in Kcals: Using Current wt Calories/Kcals/Kg 25-30 Kcals Calculated 4165-9617 Protein: Using Current wt Protein g/k-1.2 Protein Calculated 55-66 Fluid: ml 1375-1650ml (1ml/kcal) Nutritional Problem 1. Problem Problem inadequate food intake Etiology N/V Signs/Symptoms: PO intake <=50% Malnutrition Alert Protein-Calorie Malnutrition N/A Is there a minimum of two criteria No selected? Query Text:Check all the applicable criteria. A minimum of two criteria are recommended for diagnosis of either severe or non-severe malnutrition. Intervention/Recommendation Comments 1. Continue with current diet as ordered. If pt likes boost, will continue sending with meal tray. 2. Monitor PO intake, wt, labs and skin integrity 3. F/U as high risk in 2-3 days, 02/22-02/23 Expected Outcomes/Goals Expected Outcomes/Goals 1. PO intake to meet at least 75% of nutritional needs. 2. Wt stability, skin to heal, improved GI function, labs to approach WNL.
--- NOTE | 2018-02-25 22:33 | GI Progress Note ---
Subjective - Review of Systems Service Date: 02/25/18 Subjective: STILL SOME VAGUE ABD PAIN. FEELS "HERNIA". LESS DIARRHEA. Objective - Results Result Diagrams: 02/25/18 06:28 02/23/18 05:15 Recent Labs: Laboratory Last Values WBC 3.0 Th/cmm (4.8-10.8) L 02/25/18 06:28 RBC 3.70 Mil/cmm (3.80-5.10) L 02/25/18 06:28 Hgb 10.6 gm/dL (12-16) L 02/25/18 06:28 Hct 32.5 % (41.0-60) L 02/25/18 06:28 MCV 88.0 fl (81-100) 02/25/18 06:28 MCH 28.7 pg (27.0-31.0) 02/25/18 06:28 MCHC Differential 32.7 pg (28.0-36.0) 02/25/18 06:28 RDW 16.3 % (11.5-20.0) 02/25/18 06:28 Plt Count 275 Th/cmm (150-400) 02/25/18 06:28 MPV 6.4 fl 02/25/18 06:28 Neutrophils % 32.6 % (40.0-80.0) L 02/25/18 06:28 Band Neutrophils % 2 % (0-10) 02/22/18 07:55 Lymphocytes % 49.1 % (20.0-50.0) 02/25/18 06:28 Monocytes % 15.6 % (2.0-10.0) H 02/25/18 06:28 Eosinophils % 2.5 % (0.0-5.0) 02/25/18 06:28 Basophils % 0.2 % (0.0-2.0) 02/25/18 06:28 Neutrophils (Manual) 39 % (40-80) L 02/23/18 05:15 Lymphocytes 51 % (20-50) H 02/23/18 05:15 Monocytes 5 % (2-10) 02/23/18 05:15 Eosinophils 5 % (0-5) 02/23/18 05:15 Basophils 0 % (0-3) 02/22/18 07:55 Atypical Lymphocytes 4 % 02/21/18 06:02 Sodium 132 mEq/L (136-145) L 02/23/18 05:15 Potassium 4.6 mEq/L (3.5-5.1) 02/23/18 05:15 Chloride 100 mEq/L (98-107) 02/23/18 05:15 Carbon Dioxide 25.6 mEq/L (21.0-31.0) 02/23/18 05:15 Anion Gap 11.0 (7.0-16.0) 02/23/18 05:15 BUN 11 mg/dL (7-25) 02/23/18 05:15 Creatinine 0.8 mg/dL (0.6-1.2) 02/23/18 05:15 Est GFR ( Amer) > 60.0 ml/min (>90) 02/23/18 05:15 Est GFR (Non-Af Amer) > 60.0 ml/min 02/23/18 05:15 BUN/Creatinine Ratio 13.8 02/23/18 05:15 Glucose 103 mg/dL (70-105) 02/23/18 05:15 Whole Bld Lactic Acid 2.19 mmol/L (0.60-1.99) H* 02/20/18 07:15 Calcium 9.4 mg/dL (8.6-10.3) 02/23/18 05:15 Total Bilirubin 0.2 mg/dL (0.3-1.0) L 02/23/18 05:15 Direct Bilirubin 0.09 mg/dL (0.0-0.2) 02/21/18 06:02 AST 46 U/L (13-39) H 02/23/18 05:15 ALT 27 U/L (7-52) 02/23/18 05:15 Alkaline Phosphatase 59 U/L (34-104) 02/23/18 05:15 Total Protein 6.8 gm/dL (6.0-8.3) 02/23/18 05:15 Albumin 3.9 gm/dL (3.7-5.3) 02/23/18 05:15 Globulin 2.9 gm/dL 02/23/18 05:15 Albumin/Globulin Ratio 1.3 (1.0-1.8) 02/23/18 05:15 Amylase 94 U/L (29-103) 02/20/18 04:40 Lipase 84 U/L (11-82) H 02/23/18 05:15 Serum , Qual NEGATIVE (NEGATIVE) 02/20/18 04:40 Urine Source CLEAN C 02/20/18 04:00 Urine Color YELLOW 02/20/18 04:00 Urine Clarity HAZY (CLEAR) 02/20/18 04:00 Urine pH 6.0 (4.6 - 8.0) 02/20/18 04:00 Ur Specific [place] >= 1.030 (1.005-1.030) 02/20/18 04:00 Urine Protein TRACE mg/dL (NEGATIVE) 02/20/18 04:00 Urine Glucose (UA) NEGATIVE mg/dL (NEGATIVE) 02/20/18 04:00 Urine Ketones NEGATIVE mg/dL (NEGATIVE) 02/20/18 04:00 Urine Blood NEGATIVE (NEGATIVE) 02/20/18 04:00 Urine Nitrate NEGATIVE (NEGATIVE) 02/20/18 04:00 Urine Bilirubin NEGATIVE (NEGATIVE) 02/20/18 04:00 Urine Urobilinogen 0.2 E.U./dL (0.2 - 1.0) 02/20/18 04:00 Ur Leukocyte Esterase NEGATIVE (NEGATIVE) 02/20/18 04:00 Urine RBC 0-2 /hpf (0-5) 02/20/18 04:00 Urine WBC 0-2 /hpf (0-5) 02/20/18 04:00 Ur Epithelial Cells FEW /lpf (FEW) 02/20/18 04:00 Calcium Oxalate Crystal MANY /hpf 02/20/18 04:00 Urine Bacteria FEW /hpf (NONE SEEN) 02/20/18 04:00 Urine Test NEGATIVE 02/25/18 15:00 Urine Opiates Screen POSITIVE (NEGATIVE) H 02/20/18 11:20 Urine Methadone Screen NEGATIVE (NEGATIVE) 02/20/18 11:20 Ur Barbiturates Screen NEGATIVE (NEGATIVE) 02/20/18 11:20 Ur Tricyclics Screen NEGATIVE (NEGATIVE) 02/20/18 11:20 Ur Phencyclidine Scrn NEGATIVE (NEGATIVE) 02/20/18 11:20 Amphetamines Screen NEGATIVE (NEGATIVE) 02/20/18 11:20 U Methamphetamines Scrn NEGATIVE (NEGATIVE) 02/20/18 11:20 U Benzodiazepines Scrn NEGATIVE (NEGATIVE) 02/20/18 11:20 U Cocaine Metab Screen NEGATIVE (NEGATIVE) 02/20/18 11:20 U Cannabinoids Screen NEGATIVE (NEGATIVE) 02/20/18 11:20 Ethyl Alcohol 102 mg/dL (0-10) H 02/20/18 10:40 RPR NONREACTIVE (NONREACTIVE) 02/20/18 10:40 T.pallidum Ab (FTA-ABS) Non Reactive (Non Reactive) 02/20/18 10:40 Hepatitis A IgM Ab Negative (Negative) 02/20/18 10:40 Hep Bs Antigen Negative (Negative) 02/20/18 10:40 Hep B Core IgM Ab Negative (Negative) 02/20/18 10:40 Hepatitis C Antibody <0.1 s/co ratio (0.0-0.9) 02/20/18 10:40 HIV 1&2 Antibody Screen NEGATIVE (NEG) 02/20/18 04:40 - Physical Exam Vitals and I&O: Vital Signs Temp 97.5 F 02/25/18 20:00 Pulse 77 02/25/18 20:00 Resp 19 02/25/18 20:00 BP 117/84 02/25/18 20:00 Pulse Ox 100 02/25/18 20:00 Intake & Output 02/25/18 02/25/18 02/26/18 06:59 18:59 06:59 Intake Total 140.530 7107 Output Total 1 Balance 532.622 0559 Weight (lbs) 62.142 kg 62.142 kg Intake: Intake, IV Amount 507.930 0071 D5-0.45NS 1,000 ml @ 125 441.248 9261 mls/hr IV .Q8H [facility] Rx#: [id number] Oral 1800 Output: Stool 1 Other: # Voids 3 4 # Bowel Movements 2 Stool Characteristics Soft Soft Formed Formed Weight Source Bedscale Bedscale Active Medications: Current Medications Alprazolam (Xanax) 0.25 mg PO Q6HR PRN; Protocol PRN Reason: Anxiety Stop: 04/21/18 18:23 Calamine (Calamine) 1 appl TP Q4HR PRN PRN Reason: Itching Stop: 04/21/18 16:43 Last Admin: 02/21/18 03:33 Dose: 1 appl Dicyclomine HCl (Bentyl) 20 mg PO BID YRN Stop: 04/23/18 16:59 Last Admin: 02/25/18 16:03 Dose: 20 mg Hydroxyzine HCl (Atarax) 20 mg PO Q8H PRN; Protocol PRN Reason: Itching Stop: 04/21/18 12:47 Last Admin: 02/25/18 11:19 Dose: 20 mg Ceftriaxone Sodium 1 gm/ (Sodium Chloride) 50 mls @ 100 mls/hr IV Q24H YRN Stop: 04/22/18 05:59 Last Admin: 02/25/18 05:38 Dose: 100 mls/hr Dextrose/Sodium Chloride (D5-0.45ns) 1,000 mls @ 125 mls/hr IV .Q8H YRN Stop: 04/21/18 09:14 Last Admin: 02/25/18 15:55 Dose: 125 mls/hr Lactobacillus Rhamnosus (Culturelle 15b) 1 each PO DAILY YRN Stop: 04/26/18 13:59 Last Admin: 02/25/18 13:28 Dose: 1 each Lorazepam (Ativan) 1 mg IVP Q4HR PRN; Protocol PRN Reason: Anxiety Stop: 04/21/18 13:25 Last Admin: 02/22/18 23:17 Dose: 1 mg Miscellaneous (Probiotic Screen) 1 ea MC PRN PRN PRN Reason: PROTOCOL Stop: 04/26/18 12:27 Morphine Sulfate (Morphine) 1 mg IVP Q3H PRN PRN Reason: MODERATE PAIN Stop: 04/21/18 09:10 Last Admin: 02/22/18 10:07 Dose: 1 mg Morphine Sulfate (Morphine) 4 mg IV Q6HR PRN PRN Reason: Severe Pain Stop: 04/21/18 13:24 Last Admin: 02/25/18 20:06 Dose: 4 mg Nystatin (Mycostatin Cream) 1 appl TP DAILY YRN Stop: 04/22/18 08:59 Last Admin: 02/25/18 08:29 Dose: 1 appl Ondansetron HCl (Zofran) 4 mg IV Q6H PRN PRN Reason: Nausea / Vomiting Stop: 04/21/18 09:13 Last Admin: 02/25/18 09:38 Dose: 4 mg General: Alert HEENT: Atraumatic Neck: Supple Cardiovascular: Regular rate Lungs: Clear to auscultation Abdomen: Soft, no Tender Assessment/Plan - Assessment Assessment: IMPRESSION: 1. ABD PAIN WITH INITIAL DIARRHEA - LATTER NOW BETTER. RECS: 1. GIVEN VAGUE ONGOING SYMPTOMS, WILL PURSUE EGD AND COLONOSCOPY TOMORROW, WITH BOWEL PREP OVERNIGHT. 2. CONTINUE BENTYL.
--- NOTE | 2018-02-25 23:27 | Infectious Disease Prog Note ---
Infectious Disease Subjective - Review of Systems Service Date: 02/25/18 Subjective: No fever. Infectious Disease Objective - Results Result Diagrams: 02/25/18 06:28 02/23/18 05:15 Recent Labs: Laboratory Last Values WBC 3.0 Th/cmm (4.8-10.8) L 02/25/18 06:28 RBC 3.70 Mil/cmm (3.80-5.10) L 02/25/18 06:28 Hgb 10.6 gm/dL (12-16) L 02/25/18 06:28 Hct 32.5 % (41.0-60) L 02/25/18 06:28 MCV 88.0 fl (81-100) 02/25/18 06:28 MCH 28.7 pg (27.0-31.0) 02/25/18 06:28 MCHC Differential 32.7 pg (28.0-36.0) 02/25/18 06:28 RDW 16.3 % (11.5-20.0) 02/25/18 06:28 Plt Count 275 Th/cmm (150-400) 02/25/18 06:28 MPV 6.4 fl 02/25/18 06:28 Neutrophils % 32.6 % (40.0-80.0) L 02/25/18 06:28 Band Neutrophils % 2 % (0-10) 02/22/18 07:55 Lymphocytes % 49.1 % (20.0-50.0) 02/25/18 06:28 Monocytes % 15.6 % (2.0-10.0) H 02/25/18 06:28 Eosinophils % 2.5 % (0.0-5.0) 02/25/18 06:28 Basophils % 0.2 % (0.0-2.0) 02/25/18 06:28 Neutrophils (Manual) 39 % (40-80) L 02/23/18 05:15 Lymphocytes 51 % (20-50) H 02/23/18 05:15 Monocytes 5 % (2-10) 02/23/18 05:15 Eosinophils 5 % (0-5) 02/23/18 05:15 Basophils 0 % (0-3) 02/22/18 07:55 Atypical Lymphocytes 4 % 02/21/18 06:02 Sodium 132 mEq/L (136-145) L 02/23/18 05:15 Potassium 4.6 mEq/L (3.5-5.1) 02/23/18 05:15 Chloride 100 mEq/L (98-107) 02/23/18 05:15 Carbon Dioxide 25.6 mEq/L (21.0-31.0) 02/23/18 05:15 Anion Gap 11.0 (7.0-16.0) 02/23/18 05:15 BUN 11 mg/dL (7-25) 02/23/18 05:15 Creatinine 0.8 mg/dL (0.6-1.2) 02/23/18 05:15 Est GFR ( Amer) > 60.0 ml/min (>90) 02/23/18 05:15 Est GFR (Non-Af Amer) > 60.0 ml/min 02/23/18 05:15 BUN/Creatinine Ratio 13.8 02/23/18 05:15 Glucose 103 mg/dL (70-105) 02/23/18 05:15 Whole Bld Lactic Acid 2.19 mmol/L (0.60-1.99) H* 02/20/18 07:15 Calcium 9.4 mg/dL (8.6-10.3) 02/23/18 05:15 Total Bilirubin 0.2 mg/dL (0.3-1.0) L 02/23/18 05:15 Direct Bilirubin 0.09 mg/dL (0.0-0.2) 02/21/18 06:02 AST 46 U/L (13-39) H 02/23/18 05:15 ALT 27 U/L (7-52) 02/23/18 05:15 Alkaline Phosphatase 59 U/L (34-104) 02/23/18 05:15 Total Protein 6.8 gm/dL (6.0-8.3) 02/23/18 05:15 Albumin 3.9 gm/dL (3.7-5.3) 02/23/18 05:15 Globulin 2.9 gm/dL 02/23/18 05:15 Albumin/Globulin Ratio 1.3 (1.0-1.8) 02/23/18 05:15 Amylase 94 U/L (29-103) 02/20/18 04:40 Lipase 84 U/L (11-82) H 02/23/18 05:15 Serum , Qual NEGATIVE (NEGATIVE) 02/20/18 04:40 Urine Source CLEAN C 02/20/18 04:00 Urine Color YELLOW 02/20/18 04:00 Urine Clarity HAZY (CLEAR) 02/20/18 04:00 Urine pH 6.0 (4.6 - 8.0) 02/20/18 04:00 Ur Specific [place] >= 1.030 (1.005-1.030) 02/20/18 04:00 Urine Protein TRACE mg/dL (NEGATIVE) 02/20/18 04:00 Urine Glucose (UA) NEGATIVE mg/dL (NEGATIVE) 02/20/18 04:00 Urine Ketones NEGATIVE mg/dL (NEGATIVE) 02/20/18 04:00 Urine Blood NEGATIVE (NEGATIVE) 02/20/18 04:00 Urine Nitrate NEGATIVE (NEGATIVE) 02/20/18 04:00 Urine Bilirubin NEGATIVE (NEGATIVE) 02/20/18 04:00 Urine Urobilinogen 0.2 E.U./dL (0.2 - 1.0) 02/20/18 04:00 Ur Leukocyte Esterase NEGATIVE (NEGATIVE) 02/20/18 04:00 Urine RBC 0-2 /hpf (0-5) 02/20/18 04:00 Urine WBC 0-2 /hpf (0-5) 02/20/18 04:00 Ur Epithelial Cells FEW /lpf (FEW) 02/20/18 04:00 Calcium Oxalate Crystal MANY /hpf 02/20/18 04:00 Urine Bacteria FEW /hpf (NONE SEEN) 02/20/18 04:00 Urine Test NEGATIVE 02/25/18 15:00 Urine Opiates Screen POSITIVE (NEGATIVE) H 02/20/18 11:20 Urine Methadone Screen NEGATIVE (NEGATIVE) 02/20/18 11:20 Ur Barbiturates Screen NEGATIVE (NEGATIVE) 02/20/18 11:20 Ur Tricyclics Screen NEGATIVE (NEGATIVE) 02/20/18 11:20 Ur Phencyclidine Scrn NEGATIVE (NEGATIVE) 02/20/18 11:20 Amphetamines Screen NEGATIVE (NEGATIVE) 02/20/18 11:20 U Methamphetamines Scrn NEGATIVE (NEGATIVE) 02/20/18 11:20 U Benzodiazepines Scrn NEGATIVE (NEGATIVE) 02/20/18 11:20 U Cocaine Metab Screen NEGATIVE (NEGATIVE) 02/20/18 11:20 U Cannabinoids Screen NEGATIVE (NEGATIVE) 02/20/18 11:20 Ethyl Alcohol 102 mg/dL (0-10) H 02/20/18 10:40 RPR NONREACTIVE (NONREACTIVE) 02/20/18 10:40 T.pallidum Ab (FTA-ABS) Non Reactive (Non Reactive) 02/20/18 10:40 Hepatitis A IgM Ab Negative (Negative) 02/20/18 10:40 Hep Bs Antigen Negative (Negative) 02/20/18 10:40 Hep B Core IgM Ab Negative (Negative) 02/20/18 10:40 Hepatitis C Antibody <0.1 s/co ratio (0.0-0.9) 02/20/18 10:40 HIV 1&2 Antibody Screen NEGATIVE (NEG) 02/20/18 04:40 - Physical Exam Vitals and I&O: Vital Signs Temp 97.5 F 02/25/18 20:00 Pulse 77 02/25/18 20:00 Resp 19 02/25/18 20:00 BP 117/84 02/25/18 20:00 Pulse Ox 100 02/25/18 20:00 Intake & Output 02/25/18 02/25/18 02/26/18 06:59 18:59 06:59 Intake Total 763.945 0069 Output Total 1 Balance 839.179 5656 Weight (lbs) 62.142 kg 62.142 kg Intake: Intake, IV Amount 769.761 7800 D5-0.45NS 1,000 ml @ 125 367.069 9325 mls/hr IV .Q8H [facility] Rx#: [id number] Oral 1800 Output: Stool 1 Other: # Voids 3 4 # Bowel Movements 2 Stool Characteristics Soft Soft Liquid Formed Formed Weight Source Bedscale Bedscale Active Medications: Current Medications Alprazolam (Xanax) 0.25 mg PO Q6HR PRN; Protocol PRN Reason: Anxiety Stop: 04/21/18 18:23 Calamine (Calamine) 1 appl TP Q4HR PRN PRN Reason: Itching Stop: 04/21/18 16:43 Last Admin: 02/21/18 03:33 Dose: 1 appl Dicyclomine HCl (Bentyl) 20 mg PO BID YRN Stop: 04/23/18 16:59 Last Admin: 02/25/18 16:03 Dose: 20 mg Hydroxyzine HCl (Atarax) 20 mg PO Q8H PRN; Protocol PRN Reason: Itching Stop: 04/21/18 12:47 Last Admin: 02/25/18 11:19 Dose: 20 mg Ceftriaxone Sodium 1 gm/ (Sodium Chloride) 50 mls @ 100 mls/hr IV Q24H YRN Stop: 04/22/18 05:59 Last Admin: 02/25/18 05:38 Dose: 100 mls/hr Dextrose/Sodium Chloride (D5-0.45ns) 1,000 mls @ 125 mls/hr IV .Q8H [facility] Stop: 04/21/18 09:14 Last Admin: 02/25/18 15:55 Dose: 125 mls/hr Lactobacillus Rhamnosus (Culturelle 15b) 1 each PO DAILY YRN Stop: 04/26/18 13:59 Last Admin: 02/25/18 13:28 Dose: 1 each Lorazepam (Ativan) 1 mg IVP Q4HR PRN; Protocol PRN Reason: Anxiety Stop: 04/21/18 13:25 Last Admin: 02/22/18 23:17 Dose: 1 mg Miscellaneous (Probiotic Screen) 1 ea MC PRN PRN PRN Reason: PROTOCOL Stop: 04/26/18 12:27 Morphine Sulfate (Morphine) 1 mg IVP Q3H PRN PRN Reason: MODERATE PAIN Stop: 04/21/18 09:10 Last Admin: 02/22/18 10:07 Dose: 1 mg Morphine Sulfate (Morphine) 4 mg IV Q6HR PRN PRN Reason: Severe Pain Stop: 04/21/18 13:24 Last Admin: 02/25/18 20:06 Dose: 4 mg Nystatin (Mycostatin Cream) 1 appl TP DAILY YRN Stop: 04/22/18 08:59 Last Admin: 02/25/18 08:29 Dose: 1 appl Ondansetron HCl (Zofran) 4 mg IV Q6H PRN PRN Reason: Nausea / Vomiting Stop: 04/21/18 09:13 Last Admin: 02/25/18 09:38 Dose: 4 mg General: no acute distress, well developed, well nourished HEENT: atraumatic, normocephalic, PERRLA, EOMI Neck: supple, no thyromegaly Cardiovascular: S1S2, regular Lungs: clear to auscultation bilaterally, clear to percussion Abdomen: soft, bowel sounds, no tender, no distended, no mass, no rebound Extremities: no cyanosis, no clubbing, no edema Neurological: awake, alert, oriented Skin: intact Infectious Disease Assmt/Plan - Assessment Assessment: 1. Neutropenia. 2. Anemia. 3. Cirrhosis. - Plan Plan: CPM Nutritional Asmnt/Malnutr-PDOC - Dietary Evaluation Malnutrition Findings (Please click <Entered> for more info): Nutritional Asmnt/Malnutrition Start: 02/20/18 15: 00 Text: Status: Complete Freq: Document 02/20/18 15:00 [facility] (Rec: 02/20/18 15:19 [facility] [id number]) Nutritional Asmnt/Malnutrition Patient General Information Nutritional Screening High Risk Diagnosis severe gastroenteritis, leukopenia, sepsis Pertinent Medical Hx/Surgical Hx HTN Subjective Information Pt seen sitting on bed at time of visit, awake and alert. Pt reported she had diffulculty of taking down food. She tried to consumed half of lunch tray. Pt reported some N/V after taking food. Pt has concern of nutrition intake. Offered pt Boost per pt request in the afternoon. Current Diet Order/ Nutrition Support [facility] chopped Pertinent Medications D5-0.45ns, zofran Pertinent Labs 02/20 glucose 107 Nutritional Hx/Data Height 1.68 m Height (Calculated Centimeters) 167.6 Current Weight (lbs) 55.338 kg Weight (Calculated Kilograms) 55.3 Weight (Calculated Grams) 52990.3 [place] Body Weight 130 Body Mass Index (BMI) 19.7 Weight Status Approriate GI Symptoms GI Symptoms Nausea Vomitting Last BM no record Difficult in: None Skin Integrity/Comment: facial abrasion and scars Current %PO Poor (25-49%) Estimated Nutritional Goals BEE in Kcals: Using Current wt Calories/Kcals/Kg 25-30 Kcals Calculated 3340-6896 Protein: Using Current wt Protein g/k-1.2 Protein Calculated 55-66 Fluid: ml 1375-1650ml (1ml/kcal) Nutritional Problem 1. Problem Problem inadequate food intake Etiology N/V Signs/Symptoms: PO intake <=50% Malnutrition Alert Protein-Calorie Malnutrition N/A Is there a minimum of two criteria No selected? Query Text:Check all the applicable criteria. A minimum of two criteria are recommended for diagnosis of either severe or non-severe malnutrition. Intervention/Recommendation Comments 1. Continue with current diet as ordered. If pt likes boost, will continue sending with meal tray. 2. Monitor PO intake, wt, labs and skin integrity 3. F/U as high risk in 2-3 days, 02/22-02/23 Expected Outcomes/Goals Expected Outcomes/Goals 1. PO intake to meet at least 75% of nutritional needs. 2. Wt stability, skin to heal, improved GI function, labs to approach WNL.
[2018-02-26] MEDS: Morphine Sulfate 4 mg/mL 1mL Syr IV PRN ×2 (02:35→20:48)
[2018-02-26] MEDS: cefTRIAXone 1 GM in Sodium Chloride 0.9% 50 ML IV SCH (05:50)
[2018-02-26 06:32] LABS: % BASOPHILS 0.5 % (0.0-2.0); % EOSINOPHILS 2.3 % (0.0-5.0); % LYMPHOCYTES 48.5 % (20.0-50.0); % MONOCYTES 14.7 % (2.0-10.0); EOSINOPHILE ABSOLUTE 0.1 Th/cmm (0.1-0.4); HEMATOCRIT 31.6 % (41.0-60); HEMOGLOBIN 10.4 gm/dL (12-16); LYMPHOCYTE ABSOLUTE 1.5 Th/cmm (1.5-3.0); MEAN CELL VOLUME 86.8 fl (81-100); MEAN CORPUSCULAR HEMOGLOBIN 28.6 pg (27.0-31.0); MEAN CORPUSCULAR HGB CONC 32.9 pg (28.0-36.0); MEAN PLATELET VOLUME 6.7 fl; MONOCYTE ABSOLUTE 0.4 Th/cmm (0.3-1.0); RED BLOOD COUNT 3.64 Mil/cmm (3.80-5.10); RED CELL DISTRIBUTION WIDTH 16.4 % (11.5-20.0)
[2018-02-26 06:42] LABS: ANION GAP 9.4 (7.0-16.0); BUN - UREA NITROGEN 9 mg/dL (7-25); CALCIUM SERUM 8.9 mg/dL (8.6-10.3); CARBON DIOXIDE 27.4 mEq/L (21.0-31.0); CHLORIDE 102 mEq/L (98-107); CREATININE - SERUM 0.7 mg/dL (0.6-1.2); GFR AFRICAN-AMERICAN > 60.0 ml/min (>90); GFR NON AFRICAN-AMERICAN > 60.0 ml/min; GLUCOSE 92 mg/dL (70-105); INR 1.04 (0.5-1.4); POTASSIUM SERUM 3.8 mEq/L (3.5-5.1); PROTHROMBIN TIME (TEST) 10.8 SECONDS (9.5-11.5); SODIUM SERUM 135 mEq/L (136-145)
[2018-02-26 07:15] LABS: PLATELET COUNT 334 Th/cmm (150-400)
--- NOTE | 2018-02-26 09:45 | General Progress Note ---
Subjective - Review of Systems Events since last encounter: patient awake alert still with c/o abd discomfort Objective - Results Result Diagrams: 02/26/18 05:43 02/26/18 05:43 Recent Labs: Laboratory Last Values WBC 3.0 Th/cmm (4.8-10.8) L 02/26/18 05:43 RBC 3.64 Mil/cmm (3.80-5.10) L 02/26/18 05:43 Hgb 10.4 gm/dL (12-16) L 02/26/18 05:43 Hct 31.6 % (41.0-60) L 02/26/18 05:43 MCV 86.8 fl (81-100) 02/26/18 05:43 MCH 28.6 pg (27.0-31.0) 02/26/18 05:43 MCHC Differential 32.9 pg (28.0-36.0) 02/26/18 05:43 RDW 16.4 % (11.5-20.0) 02/26/18 05:43 Plt Count 334 Th/cmm (150-400) D 02/26/18 05:43 MPV 6.7 fl 02/26/18 05:43 Neutrophils % 34.0 % (40.0-80.0) L 02/26/18 05:43 Band Neutrophils % 2 % (0-10) 02/22/18 07:55 Lymphocytes % 48.5 % (20.0-50.0) 02/26/18 05:43 Monocytes % 14.7 % (2.0-10.0) H 02/26/18 05:43 Eosinophils % 2.3 % (0.0-5.0) 02/26/18 05:43 Basophils % 0.5 % (0.0-2.0) 02/26/18 05:43 Neutrophils (Manual) 39 % (40-80) L 02/23/18 05:15 Lymphocytes 51 % (20-50) H 02/23/18 05:15 Monocytes 5 % (2-10) 02/23/18 05:15 Eosinophils 5 % (0-5) 02/23/18 05:15 Basophils 0 % (0-3) 02/22/18 07:55 Atypical Lymphocytes 4 % 02/21/18 06:02 PT 10.8 SECONDS (9.5-11.5) 02/26/18 05:43 INR 1.04 (0.5-1.4) 02/26/18 05:43 PTT (Actin FS) 23.9 SECONDS (26.0-38.0) L 02/26/18 05:43 Sodium 135 mEq/L (136-145) L 02/26/18 05:43 Potassium 3.8 mEq/L (3.5-5.1) 02/26/18 05:43 Chloride 102 mEq/L (98-107) 02/26/18 05:43 Carbon Dioxide 27.4 mEq/L (21.0-31.0) 02/26/18 05:43 Anion Gap 9.4 (7.0-16.0) 02/26/18 05:43 BUN 9 mg/dL (7-25) 02/26/18 05:43 Creatinine 0.7 mg/dL (0.6-1.2) 02/26/18 05:43 Est GFR ( Amer) > 60.0 ml/min (>90) 02/26/18 05:43 Est GFR (Non-Af Amer) > 60.0 ml/min 02/26/18 05:43 BUN/Creatinine Ratio 12.9 02/26/18 05:43 Glucose 92 mg/dL (70-105) 02/26/18 05:43 Whole Bld Lactic Acid 2.19 mmol/L (0.60-1.99) H* 02/20/18 07:15 Calcium 8.9 mg/dL (8.6-10.3) 02/26/18 05:43 Total Bilirubin 0.2 mg/dL (0.3-1.0) L 02/23/18 05:15 Direct Bilirubin 0.09 mg/dL (0.0-0.2) 02/21/18 06:02 AST 46 U/L (13-39) H 02/23/18 05:15 ALT 27 U/L (7-52) 02/23/18 05:15 Alkaline Phosphatase 59 U/L (34-104) 02/23/18 05:15 Total Protein 6.8 gm/dL (6.0-8.3) 02/23/18 05:15 Albumin 3.9 gm/dL (3.7-5.3) 02/23/18 05:15 Globulin 2.9 gm/dL 02/23/18 05:15 Albumin/Globulin Ratio 1.3 (1.0-1.8) 02/23/18 05:15 Amylase 94 U/L (29-103) 02/20/18 04:40 Lipase 84 U/L (11-82) H 02/23/18 05:15 Serum , Qual NEGATIVE (NEGATIVE) 02/20/18 04:40 Urine Source CLEAN C 02/20/18 04:00 Urine Color YELLOW 02/20/18 04:00 Urine Clarity HAZY (CLEAR) 02/20/18 04:00 Urine pH 6.0 (4.6 - 8.0) 02/20/18 04:00 Ur Specific [place] >= 1.030 (1.005-1.030) 02/20/18 04:00 Urine Protein TRACE mg/dL (NEGATIVE) 02/20/18 04:00 Urine Glucose (UA) NEGATIVE mg/dL (NEGATIVE) 02/20/18 04:00 Urine Ketones NEGATIVE mg/dL (NEGATIVE) 02/20/18 04:00 Urine Blood NEGATIVE (NEGATIVE) 02/20/18 04:00 Urine Nitrate NEGATIVE (NEGATIVE) 02/20/18 04:00 Urine Bilirubin NEGATIVE (NEGATIVE) 02/20/18 04:00 Urine Urobilinogen 0.2 E.U./dL (0.2 - 1.0) 02/20/18 04:00 Ur Leukocyte Esterase NEGATIVE (NEGATIVE) 02/20/18 04:00 Urine RBC 0-2 /hpf (0-5) 02/20/18 04:00 Urine WBC 0-2 /hpf (0-5) 02/20/18 04:00 Ur Epithelial Cells FEW /lpf (FEW) 02/20/18 04:00 Calcium Oxalate Crystal MANY /hpf 02/20/18 04:00 Urine Bacteria FEW /hpf (NONE SEEN) 02/20/18 04:00 Urine Test NEGATIVE 02/25/18 15:00 Urine Opiates Screen POSITIVE (NEGATIVE) H 02/20/18 11:20 Urine Methadone Screen NEGATIVE (NEGATIVE) 02/20/18 11:20 Ur Barbiturates Screen NEGATIVE (NEGATIVE) 02/20/18 11:20 Ur Tricyclics Screen NEGATIVE (NEGATIVE) 02/20/18 11:20 Ur Phencyclidine Scrn NEGATIVE (NEGATIVE) 02/20/18 11:20 Amphetamines Screen NEGATIVE (NEGATIVE) 02/20/18 11:20 U Methamphetamines Scrn NEGATIVE (NEGATIVE) 02/20/18 11:20 U Benzodiazepines Scrn NEGATIVE (NEGATIVE) 02/20/18 11:20 U Cocaine Metab Screen NEGATIVE (NEGATIVE) 02/20/18 11:20 U Cannabinoids Screen NEGATIVE (NEGATIVE) 02/20/18 11:20 Ethyl Alcohol 102 mg/dL (0-10) H 02/20/18 10:40 RPR NONREACTIVE (NONREACTIVE) 02/20/18 10:40 T.pallidum Ab (FTA-ABS) Non Reactive (Non Reactive) 02/20/18 10:40 Hepatitis A IgM Ab Negative (Negative) 02/20/18 10:40 Hep Bs Antigen Negative (Negative) 02/20/18 10:40 Hep B Core IgM Ab Negative (Negative) 02/20/18 10:40 Hepatitis C Antibody <0.1 s/co ratio (0.0-0.9) 02/20/18 10:40 HIV 1&2 Antibody Screen NEGATIVE (NEG) 02/20/18 04:40 Blood Type O POSITIVE 02/26/18 05:43 Antibody Screen NEGATIVE 02/26/18 05:43 - Physical Exam Vitals and I&O: Vital Signs Temp 96.0 F 02/26/18 09:39 Pulse 59 02/26/18 09:39 Resp 19 02/26/18 09:39 BP 126/63 02/26/18 09:39 Pulse Ox 100 02/26/18 09:39 Intake & Output 02/25/18 02/26/18 02/26/18 18:59 06:59 18:59 Intake Total 2800 Balance 2800 Weight (lbs) 62.142 kg Intake: Intake, IV Amount 1000 D5-0.45NS 1,000 ml @ 125 1000 mls/hr IV .Q8H [facility] Rx#: [id number] Oral 1800 Other: # Voids 4 # Bowel Movements 2 Stool Characteristics Soft Liquid Formed Weight Source Bedscale Active Medications: Current Medications Alprazolam (Xanax) 0.25 mg PO Q6HR PRN; Protocol PRN Reason: Anxiety Stop: 04/21/18 18:23 Calamine (Calamine) 1 appl TP Q4HR PRN PRN Reason: Itching Stop: 04/21/18 16:43 Last Admin: 02/21/18 03:33 Dose: 1 appl Dicyclomine HCl (Bentyl) 20 mg PO BID YRN Stop: 04/23/18 16:59 Last Admin: 02/25/18 16:03 Dose: 20 mg Hydroxyzine HCl (Atarax) 20 mg PO Q8H PRN; Protocol PRN Reason: Itching Stop: 04/21/18 12:47 Last Admin: 02/25/18 11:19 Dose: 20 mg Ceftriaxone Sodium 1 gm/ (Sodium Chloride) 50 mls @ 100 mls/hr IV Q24H YRN Stop: 04/22/18 05:59 Last Admin: 02/26/18 05:50 Dose: 100 mls/hr Dextrose/Sodium Chloride (D5-0.45ns) 1,000 mls @ 125 mls/hr IV .Q8H YRN Stop: 04/21/18 09:14 Last Admin: 02/25/18 15:55 Dose: 125 mls/hr Lactobacillus Rhamnosus (Culturelle 15b) 1 each PO DAILY YRN Stop: 04/26/18 13:59 Last Admin: 02/25/18 13:28 Dose: 1 each Lorazepam (Ativan) 1 mg IVP Q4HR PRN; Protocol PRN Reason: Anxiety Stop: 04/21/18 13:25 Last Admin: 02/22/18 23:17 Dose: 1 mg Miscellaneous (Probiotic Screen) 1 ea MC PRN PRN PRN Reason: PROTOCOL Stop: 04/26/18 12:27 Morphine Sulfate (Morphine) 1 mg IVP Q3H PRN PRN Reason: MODERATE PAIN Stop: 04/21/18 09:10 Last Admin: 02/22/18 10:07 Dose: 1 mg Morphine Sulfate (Morphine) 4 mg IV Q6HR PRN PRN Reason: Severe Pain Stop: 04/21/18 13:24 Last Admin: 02/26/18 02:35 Dose: 4 mg Nystatin (Mycostatin Cream) 1 appl TP DAILY YRN Stop: 04/22/18 08:59 Last Admin: 02/25/18 08:29 Dose: 1 appl Ondansetron HCl (Zofran) 4 mg IV Q6H PRN PRN Reason: Nausea / Vomiting Stop: 04/21/18 09:13 Last Admin: 02/25/18 23:30 Dose: 4 mg General: Alert HEENT: Atraumatic Neck: Supple Cardiovascular: Regular rate Lungs: Clear to auscultation Abdomen: Soft, no Tender Assessment/Plan - Assessment Assessment: 1. Neutropenia. 2. Anemia. 3. Cirrhosis. - Plan Plan: cpm Nutritional Asmnt/Malnutr-PDOC - Dietary Evaluation Malnutrition Findings (Please click <Entered> for more info): Nutritional Asmnt/Malnutrition Start: 02/20/18 15: 00 Text: Status: Complete Freq: Document 02/20/18 15:00 [facility] (Rec: 02/20/18 15:19 [facility] [id number]) Nutritional Asmnt/Malnutrition Patient General Information Nutritional Screening High Risk Diagnosis severe gastroenteritis, leukopenia, sepsis Pertinent Medical Hx/Surgical Hx HTN Subjective Information Pt seen sitting on bed at time of visit, awake and alert. Pt reported she had diffulculty of taking down food. She tried to consumed half of lunch tray. Pt reported some N/V after taking food. Pt has concern of nutrition intake. Offered pt Boost per pt request in the afternoon. Current Diet Order/ Nutrition Support [facility] chopped Pertinent Medications D5-0.45ns, zofran Pertinent Labs 02/20 glucose 107 Nutritional Hx/Data Height 1.68 m Height (Calculated Centimeters) 167.6 Current Weight (lbs) 55.338 kg Weight (Calculated Kilograms) 55.3 Weight (Calculated Grams) 75492.3 [place] Body Weight 130 Body Mass Index (BMI) 19.7 Weight Status Approriate GI Symptoms GI Symptoms Nausea Vomitting Last BM no record Difficult in: None Skin Integrity/Comment: facial abrasion and scars Current %PO Poor (25-49%) Estimated Nutritional Goals BEE in Kcals: Using Current wt Calories/Kcals/Kg 25-30 Kcals Calculated 9670-0441 Protein: Using Current wt Protein g/k-1.2 Protein Calculated 55-66 Fluid: ml 1375-1650ml (1ml/kcal) Nutritional Problem 1. Problem Problem inadequate food intake Etiology N/V Signs/Symptoms: PO intake <=50% Malnutrition Alert Protein-Calorie Malnutrition N/A Is there a minimum of two criteria No selected? Query Text:Check all the applicable criteria. A minimum of two criteria are recommended for diagnosis of either severe or non-severe malnutrition. Intervention/Recommendation Comments 1. Continue with current diet as ordered. If pt likes boost, will continue sending with meal tray. 2. Monitor PO intake, wt, labs and skin integrity 3. F/U as high risk in 2-3 days, 02/22-02/23 Expected Outcomes/Goals Expected Outcomes/Goals 1. PO intake to meet at least 75% of nutritional needs. 2. Wt stability, skin to heal, improved GI function, labs to approach WNL.
[2018-02-26] MEDS: Nystatin Cream 100,000 u/gm Cream 15 gm TP SCH (09:46)
[2018-02-26] MEDS: Dicyclomine 10 mg Cap PO SCH ×2 (09:46→16:53)
[2018-02-26] MEDS: Lactobacillus Rhamnosus GG 15 Billion CFU CAP.SPRINK PO SCH (09:46)
--- NOTE | 2018-02-26 10:11 | General Progress Note ---
Subjective - Review of Systems Service Date: 02/26/18 Subjective: weak, cold Objective - Results Result Diagrams: 02/26/18 05:43 02/26/18 05:43 Recent Labs: Laboratory Last Values WBC 3.0 Th/cmm (4.8-10.8) L 02/26/18 05:43 RBC 3.64 Mil/cmm (3.80-5.10) L 02/26/18 05:43 Hgb 10.4 gm/dL (12-16) L 02/26/18 05:43 Hct 31.6 % (41.0-60) L 02/26/18 05:43 MCV 86.8 fl (81-100) 02/26/18 05:43 MCH 28.6 pg (27.0-31.0) 02/26/18 05:43 MCHC Differential 32.9 pg (28.0-36.0) 02/26/18 05:43 RDW 16.4 % (11.5-20.0) 02/26/18 05:43 Plt Count 334 Th/cmm (150-400) D 02/26/18 05:43 MPV 6.7 fl 02/26/18 05:43 Neutrophils % 34.0 % (40.0-80.0) L 02/26/18 05:43 Band Neutrophils % 2 % (0-10) 02/22/18 07:55 Lymphocytes % 48.5 % (20.0-50.0) 02/26/18 05:43 Monocytes % 14.7 % (2.0-10.0) H 02/26/18 05:43 Eosinophils % 2.3 % (0.0-5.0) 02/26/18 05:43 Basophils % 0.5 % (0.0-2.0) 02/26/18 05:43 Neutrophils (Manual) 39 % (40-80) L 02/23/18 05:15 Lymphocytes 51 % (20-50) H 02/23/18 05:15 Monocytes 5 % (2-10) 02/23/18 05:15 Eosinophils 5 % (0-5) 02/23/18 05:15 Basophils 0 % (0-3) 02/22/18 07:55 Atypical Lymphocytes 4 % 02/21/18 06:02 PT 10.8 SECONDS (9.5-11.5) 02/26/18 05:43 INR 1.04 (0.5-1.4) 02/26/18 05:43 PTT (Actin FS) 23.9 SECONDS (26.0-38.0) L 02/26/18 05:43 Sodium 135 mEq/L (136-145) L 02/26/18 05:43 Potassium 3.8 mEq/L (3.5-5.1) 02/26/18 05:43 Chloride 102 mEq/L (98-107) 02/26/18 05:43 Carbon Dioxide 27.4 mEq/L (21.0-31.0) 02/26/18 05:43 Anion Gap 9.4 (7.0-16.0) 02/26/18 05:43 BUN 9 mg/dL (7-25) 02/26/18 05:43 Creatinine 0.7 mg/dL (0.6-1.2) 02/26/18 05:43 Est GFR ( Amer) > 60.0 ml/min (>90) 02/26/18 05:43 Est GFR (Non-Af Amer) > 60.0 ml/min 02/26/18 05:43 BUN/Creatinine Ratio 12.9 02/26/18 05:43 Glucose 92 mg/dL (70-105) 02/26/18 05:43 Whole Bld Lactic Acid 2.19 mmol/L (0.60-1.99) H* 02/20/18 07:15 Calcium 8.9 mg/dL (8.6-10.3) 02/26/18 05:43 Total Bilirubin 0.2 mg/dL (0.3-1.0) L 02/23/18 05:15 Direct Bilirubin 0.09 mg/dL (0.0-0.2) 02/21/18 06:02 AST 46 U/L (13-39) H 02/23/18 05:15 ALT 27 U/L (7-52) 02/23/18 05:15 Alkaline Phosphatase 59 U/L (34-104) 02/23/18 05:15 Total Protein 6.8 gm/dL (6.0-8.3) 02/23/18 05:15 Albumin 3.9 gm/dL (3.7-5.3) 02/23/18 05:15 Globulin 2.9 gm/dL 02/23/18 05:15 Albumin/Globulin Ratio 1.3 (1.0-1.8) 02/23/18 05:15 Amylase 94 U/L (29-103) 02/20/18 04:40 Lipase 84 U/L (11-82) H 02/23/18 05:15 Serum , Qual NEGATIVE (NEGATIVE) 02/20/18 04:40 Urine Source CLEAN C 02/20/18 04:00 Urine Color YELLOW 02/20/18 04:00 Urine Clarity HAZY (CLEAR) 02/20/18 04:00 Urine pH 6.0 (4.6 - 8.0) 02/20/18 04:00 Ur Specific [place] >= 1.030 (1.005-1.030) 02/20/18 04:00 Urine Protein TRACE mg/dL (NEGATIVE) 02/20/18 04:00 Urine Glucose (UA) NEGATIVE mg/dL (NEGATIVE) 02/20/18 04:00 Urine Ketones NEGATIVE mg/dL (NEGATIVE) 02/20/18 04:00 Urine Blood NEGATIVE (NEGATIVE) 02/20/18 04:00 Urine Nitrate NEGATIVE (NEGATIVE) 02/20/18 04:00 Urine Bilirubin NEGATIVE (NEGATIVE) 02/20/18 04:00 Urine Urobilinogen 0.2 E.U./dL (0.2 - 1.0) 02/20/18 04:00 Ur Leukocyte Esterase NEGATIVE (NEGATIVE) 02/20/18 04:00 Urine RBC 0-2 /hpf (0-5) 02/20/18 04:00 Urine WBC 0-2 /hpf (0-5) 02/20/18 04:00 Ur Epithelial Cells FEW /lpf (FEW) 02/20/18 04:00 Calcium Oxalate Crystal MANY /hpf 02/20/18 04:00 Urine Bacteria FEW /hpf (NONE SEEN) 02/20/18 04:00 Urine Test NEGATIVE 02/25/18 15:00 Urine Opiates Screen POSITIVE (NEGATIVE) H 02/20/18 11:20 Urine Methadone Screen NEGATIVE (NEGATIVE) 02/20/18 11:20 Ur Barbiturates Screen NEGATIVE (NEGATIVE) 02/20/18 11:20 Ur Tricyclics Screen NEGATIVE (NEGATIVE) 02/20/18 11:20 Ur Phencyclidine Scrn NEGATIVE (NEGATIVE) 02/20/18 11:20 Amphetamines Screen NEGATIVE (NEGATIVE) 02/20/18 11:20 U Methamphetamines Scrn NEGATIVE (NEGATIVE) 02/20/18 11:20 U Benzodiazepines Scrn NEGATIVE (NEGATIVE) 02/20/18 11:20 U Cocaine Metab Screen NEGATIVE (NEGATIVE) 02/20/18 11:20 U Cannabinoids Screen NEGATIVE (NEGATIVE) 02/20/18 11:20 Ethyl Alcohol 102 mg/dL (0-10) H 02/20/18 10:40 RPR NONREACTIVE (NONREACTIVE) 02/20/18 10:40 T.pallidum Ab (FTA-ABS) Non Reactive (Non Reactive) 02/20/18 10:40 Hepatitis A IgM Ab Negative (Negative) 02/20/18 10:40 Hep Bs Antigen Negative (Negative) 02/20/18 10:40 Hep B Core IgM Ab Negative (Negative) 02/20/18 10:40 Hepatitis C Antibody <0.1 s/co ratio (0.0-0.9) 02/20/18 10:40 HIV 1&2 Antibody Screen NEGATIVE (NEG) 02/20/18 04:40 Blood Type O POSITIVE 02/26/18 05:43 Antibody Screen NEGATIVE 02/26/18 05:43 - Physical Exam Vitals and I&O: Vital Signs Temp 96.0 F 02/26/18 09:39 Pulse 59 02/26/18 09:39 Resp 19 02/26/18 09:39 BP 126/63 02/26/18 09:39 Pulse Ox 100 02/26/18 09:39 Intake & Output 02/25/18 02/26/18 02/26/18 18:59 06:59 18:59 Intake Total 2800 Balance 2800 Weight (lbs) 62.142 kg Intake: Intake, IV Amount 1000 D5-0.45NS 1,000 ml @ 125 1000 mls/hr IV .Q8H [facility] Rx#: [id number] Oral 1800 Other: # Voids 4 # Bowel Movements 2 Stool Characteristics Soft Liquid Formed Weight Source Bedscale Active Medications: Current Medications Alprazolam (Xanax) 0.25 mg PO Q6HR PRN; Protocol PRN Reason: Anxiety Stop: 04/21/18 18:23 Calamine (Calamine) 1 appl TP Q4HR PRN PRN Reason: Itching Stop: 04/21/18 16:43 Last Admin: 02/21/18 03:33 Dose: 1 appl Dicyclomine HCl (Bentyl) 20 mg PO BID YRN Stop: 04/23/18 16:59 Last Admin: 02/26/18 09:46 Dose: Not Given Hydroxyzine HCl (Atarax) 20 mg PO Q8H PRN; Protocol PRN Reason: Itching Stop: 04/21/18 12:47 Last Admin: 02/25/18 11:19 Dose: 20 mg Ceftriaxone Sodium 1 gm/ (Sodium Chloride) 50 mls @ 100 mls/hr IV Q24H [facility] Stop: 04/22/18 05:59 Last Admin: 02/26/18 05:50 Dose: 100 mls/hr Dextrose/Sodium Chloride (D5-0.45ns) 1,000 mls @ 125 mls/hr IV .Q8H YRN Stop: 04/21/18 09:14 Last Admin: 02/25/18 15:55 Dose: 125 mls/hr Lactobacillus Rhamnosus (Culturelle 15b) 1 each PO DAILY YRN Stop: 04/26/18 13:59 Last Admin: 02/26/18 09:46 Dose: Not Given Lorazepam (Ativan) 1 mg IVP Q4HR PRN; Protocol PRN Reason: Anxiety Stop: 04/21/18 13:25 Last Admin: 02/22/18 23:17 Dose: 1 mg Miscellaneous (Probiotic Screen) 1 ea MC PRN PRN PRN Reason: PROTOCOL Stop: 04/26/18 12:27 Morphine Sulfate (Morphine) 1 mg IVP Q3H PRN PRN Reason: MODERATE PAIN Stop: 04/21/18 09:10 Last Admin: 02/22/18 10:07 Dose: 1 mg Morphine Sulfate (Morphine) 4 mg IV Q6HR PRN PRN Reason: Severe Pain Stop: 04/21/18 13:24 Last Admin: 02/26/18 02:35 Dose: 4 mg Nystatin (Mycostatin Cream) 1 appl TP DAILY YRN Stop: 04/22/18 08:59 Last Admin: 02/26/18 09:46 Dose: Not Given Ondansetron HCl (Zofran) 4 mg IV Q6H PRN PRN Reason: Nausea / Vomiting Stop: 04/21/18 09:13 Last Admin: 02/25/18 23:30 Dose: 4 mg General: Alert HEENT: Atraumatic Neck: Supple Cardiovascular: Regular rate Lungs: Clear to auscultation Abdomen: Soft, no Tender Assessment/Plan - Assessment Assessment: * Leukopenia secondary to liver disease and viral illness; improving * Chronic liver disease hematologically stable Nutritional Asmnt/Malnutr-PDOC - Dietary Evaluation Malnutrition Findings (Please click <Entered> for more info): Nutritional Asmnt/Malnutrition Start: 02/20/18 15: 00 Text: Status: Complete Freq: Document 02/20/18 15:00 [facility] (Rec: 02/20/18 15:19 [facility] [id number]) Nutritional Asmnt/Malnutrition Patient General Information Nutritional Screening High Risk Diagnosis severe gastroenteritis, leukopenia, sepsis Pertinent Medical Hx/Surgical Hx HTN Subjective Information Pt seen sitting on bed at time of visit, awake and alert. Pt reported she had diffulculty of taking down food. She tried to consumed half of lunch tray. Pt reported some N/V after taking food. Pt has concern of nutrition intake. Offered pt Boost per pt request in the afternoon. Current Diet Order/ Nutrition Support [facility] chopped Pertinent Medications D5-0.45ns, zofran Pertinent Labs 02/20 glucose 107 Nutritional Hx/Data Height 1.68 m Height (Calculated Centimeters) 167.6 Current Weight (lbs) 55.338 kg Weight (Calculated Kilograms) 55.3 Weight (Calculated Grams) 62654.3 [place] Body Weight 130 Body Mass Index (BMI) 19.7 Weight Status Approriate GI Symptoms GI Symptoms Nausea Vomitting Last BM no record Difficult in: None Skin Integrity/Comment: facial abrasion and scars Current %PO Poor (25-49%) Estimated Nutritional Goals BEE in Kcals: Using Current wt Calories/Kcals/Kg 25-30 Kcals Calculated 2701-3044 Protein: Using Current wt Protein g/k-1.2 Protein Calculated 55-66 Fluid: ml 1375-1650ml (1ml/kcal) Nutritional Problem 1. Problem Problem inadequate food intake Etiology N/V Signs/Symptoms: PO intake <=50% Malnutrition Alert Protein-Calorie Malnutrition N/A Is there a minimum of two criteria No selected? Query Text:Check all the applicable criteria. A minimum of two criteria are recommended for diagnosis of either severe or non-severe malnutrition. Intervention/Recommendation Comments 1. Continue with current diet as ordered. If pt likes boost, will continue sending with meal tray. 2. Monitor PO intake, wt, labs and skin integrity 3. F/U as high risk in 2-3 days, 02/22-02/23 Expected Outcomes/Goals Expected Outcomes/Goals 1. PO intake to meet at least 75% of nutritional needs. 2. Wt stability, skin to heal, improved GI function, labs to approach WNL.
[2018-02-26] MEDS ORDERED: PROPOFOL SURGERY USE ONLY IV ONE (10:13)
[2018-02-26] MEDS ORDERED: Lidocaine 2% Gel 5 mL TP ONE (10:30)
--- NOTE | 2018-02-26 13:36 | Infectious Disease Prog Note ---
Infectious Disease Subjective - Review of Systems Service Date: 02/26/18 Subjective: No fever. Doing well. Infectious Disease Objective - Results Result Diagrams: 02/26/18 05:43 02/26/18 05:43 Recent Labs: Laboratory Last Values WBC 3.0 Th/cmm (4.8-10.8) L 02/26/18 05:43 RBC 3.64 Mil/cmm (3.80-5.10) L 02/26/18 05:43 Hgb 10.4 gm/dL (12-16) L 02/26/18 05:43 Hct 31.6 % (41.0-60) L 02/26/18 05:43 MCV 86.8 fl (81-100) 02/26/18 05:43 MCH 28.6 pg (27.0-31.0) 02/26/18 05:43 MCHC Differential 32.9 pg (28.0-36.0) 02/26/18 05:43 RDW 16.4 % (11.5-20.0) 02/26/18 05:43 Plt Count 334 Th/cmm (150-400) D 02/26/18 05:43 MPV 6.7 fl 02/26/18 05:43 Neutrophils % 34.0 % (40.0-80.0) L 02/26/18 05:43 Band Neutrophils % 2 % (0-10) 02/22/18 07:55 Lymphocytes % 48.5 % (20.0-50.0) 02/26/18 05:43 Monocytes % 14.7 % (2.0-10.0) H 02/26/18 05:43 Eosinophils % 2.3 % (0.0-5.0) 02/26/18 05:43 Basophils % 0.5 % (0.0-2.0) 02/26/18 05:43 Neutrophils (Manual) 39 % (40-80) L 02/23/18 05:15 Lymphocytes 51 % (20-50) H 02/23/18 05:15 Monocytes 5 % (2-10) 02/23/18 05:15 Eosinophils 5 % (0-5) 02/23/18 05:15 Basophils 0 % (0-3) 02/22/18 07:55 Atypical Lymphocytes 4 % 02/21/18 06:02 PT 10.8 SECONDS (9.5-11.5) 02/26/18 05:43 INR 1.04 (0.5-1.4) 02/26/18 05:43 PTT (Actin FS) 23.9 SECONDS (26.0-38.0) L 02/26/18 05:43 Sodium 135 mEq/L (136-145) L 02/26/18 05:43 Potassium 3.8 mEq/L (3.5-5.1) 02/26/18 05:43 Chloride 102 mEq/L (98-107) 02/26/18 05:43 Carbon Dioxide 27.4 mEq/L (21.0-31.0) 02/26/18 05:43 Anion Gap 9.4 (7.0-16.0) 02/26/18 05:43 BUN 9 mg/dL (7-25) 02/26/18 05:43 Creatinine 0.7 mg/dL (0.6-1.2) 02/26/18 05:43 Est GFR ( Amer) > 60.0 ml/min (>90) 02/26/18 05:43 Est GFR (Non-Af Amer) > 60.0 ml/min 02/26/18 05:43 BUN/Creatinine Ratio 12.9 02/26/18 05:43 Glucose 92 mg/dL (70-105) 02/26/18 05:43 Whole Bld Lactic Acid 2.19 mmol/L (0.60-1.99) H* 02/20/18 07:15 Calcium 8.9 mg/dL (8.6-10.3) 02/26/18 05:43 Total Bilirubin 0.2 mg/dL (0.3-1.0) L 02/23/18 05:15 Direct Bilirubin 0.09 mg/dL (0.0-0.2) 02/21/18 06:02 AST 46 U/L (13-39) H 02/23/18 05:15 ALT 27 U/L (7-52) 02/23/18 05:15 Alkaline Phosphatase 59 U/L (34-104) 02/23/18 05:15 Total Protein 6.8 gm/dL (6.0-8.3) 02/23/18 05:15 Albumin 3.9 gm/dL (3.7-5.3) 02/23/18 05:15 Globulin 2.9 gm/dL 02/23/18 05:15 Albumin/Globulin Ratio 1.3 (1.0-1.8) 02/23/18 05:15 Amylase 94 U/L (29-103) 02/20/18 04:40 Lipase 84 U/L (11-82) H 02/23/18 05:15 Serum , Qual NEGATIVE (NEGATIVE) 02/20/18 04:40 Urine Source CLEAN C 02/20/18 04:00 Urine Color YELLOW 02/20/18 04:00 Urine Clarity HAZY (CLEAR) 02/20/18 04:00 Urine pH 6.0 (4.6 - 8.0) 02/20/18 04:00 Ur Specific Wells >= 1.030 (1.005-1.030) 02/20/18 04:00 Urine Protein TRACE mg/dL (NEGATIVE) 02/20/18 04:00 Urine Glucose (UA) NEGATIVE mg/dL (NEGATIVE) 02/20/18 04:00 Urine Ketones NEGATIVE mg/dL (NEGATIVE) 02/20/18 04:00 Urine Blood NEGATIVE (NEGATIVE) 02/20/18 04:00 Urine Nitrate NEGATIVE (NEGATIVE) 02/20/18 04:00 Urine Bilirubin NEGATIVE (NEGATIVE) 02/20/18 04:00 Urine Urobilinogen 0.2 E.U./dL (0.2 - 1.0) 02/20/18 04:00 Ur Leukocyte Esterase NEGATIVE (NEGATIVE) 02/20/18 04:00 Urine RBC 0-2 /hpf (0-5) 02/20/18 04:00 Urine WBC 0-2 /hpf (0-5) 02/20/18 04:00 Ur Epithelial Cells FEW /lpf (FEW) 02/20/18 04:00 Calcium Oxalate Crystal MANY /hpf 02/20/18 04:00 Urine Bacteria FEW /hpf (NONE SEEN) 02/20/18 04:00 Urine Test NEGATIVE 02/25/18 15:00 Urine Opiates Screen POSITIVE (NEGATIVE) H 02/20/18 11:20 Urine Methadone Screen NEGATIVE (NEGATIVE) 02/20/18 11:20 Ur Barbiturates Screen NEGATIVE (NEGATIVE) 02/20/18 11:20 Ur Tricyclics Screen NEGATIVE (NEGATIVE) 02/20/18 11:20 Ur Phencyclidine Scrn NEGATIVE (NEGATIVE) 02/20/18 11:20 Amphetamines Screen NEGATIVE (NEGATIVE) 02/20/18 11:20 U Methamphetamines Scrn NEGATIVE (NEGATIVE) 02/20/18 11:20 U Benzodiazepines Scrn NEGATIVE (NEGATIVE) 02/20/18 11:20 U Cocaine Metab Screen NEGATIVE (NEGATIVE) 02/20/18 11:20 U Cannabinoids Screen NEGATIVE (NEGATIVE) 02/20/18 11:20 Ethyl Alcohol 102 mg/dL (0-10) H 02/20/18 10:40 RPR NONREACTIVE (NONREACTIVE) 02/20/18 10:40 T.pallidum Ab (FTA-ABS) Non Reactive (Non Reactive) 02/20/18 10:40 Hepatitis A IgM Ab Negative (Negative) 02/20/18 10:40 Hep Bs Antigen Negative (Negative) 02/20/18 10:40 Hep B Core IgM Ab Negative (Negative) 02/20/18 10:40 Hepatitis C Antibody <0.1 s/co ratio (0.0-0.9) 02/20/18 10:40 HIV 1&2 Antibody Screen NEGATIVE (NEG) 02/20/18 04:40 Blood Type O POSITIVE 02/26/18 05:43 Antibody Screen NEGATIVE 02/26/18 05:43 - Physical Exam Vitals and I&O: Vital Signs Temp 96.7 F 02/26/18 12:09 Pulse 45 02/26/18 12:09 Resp 18 02/26/18 12:09 BP 131/72 02/26/18 12:09 Pulse Ox 99 02/26/18 12:09 Intake & Output 02/25/18 02/26/18 02/26/18 18:59 06:59 18:59 Intake Total 2800 Balance 2800 Weight (lbs) 62.142 kg Intake: Intake, IV Amount 1000 D5-0.45NS 1,000 ml @ 125 1000 mls/hr IV .Q8H YRN Rx#: [id number] Oral 1800 Other: # Voids 4 # Bowel Movements 2 Stool Characteristics Soft Liquid Liquid Formed Weight Source Bedscale Active Medications: Current Medications Alprazolam (Xanax) 0.25 mg PO Q6HR PRN; Protocol PRN Reason: Anxiety Stop: 04/21/18 18:23 Calamine (Calamine) 1 appl TP Q4HR PRN PRN Reason: Itching Stop: 04/21/18 16:43 Last Admin: 02/21/18 03:33 Dose: 1 appl Dicyclomine HCl (Bentyl) 20 mg PO BID YRN Stop: 04/23/18 16:59 Last Admin: 02/26/18 09:46 Dose: Not Given Hydroxyzine HCl (Atarax) 20 mg PO Q8H PRN; Protocol PRN Reason: Itching Stop: 04/21/18 12:47 Last Admin: 02/25/18 11:19 Dose: 20 mg Ceftriaxone Sodium 1 gm/ (Sodium Chloride) 50 mls @ 100 mls/hr IV Q24H YRN Stop: 04/22/18 05:59 Last Admin: 02/26/18 05:50 Dose: 100 mls/hr Dextrose/Sodium Chloride (D5-0.45ns) 1,000 mls @ 125 mls/hr IV .Q8H [facility] Stop: 04/21/18 09:14 Last Admin: 02/25/18 15:55 Dose: 125 mls/hr Lactobacillus Rhamnosus (Culturelle 15b) 1 each PO DAILY [facility] Stop: 04/26/18 13:59 Last Admin: 02/26/18 09:46 Dose: Not Given Lorazepam (Ativan) 1 mg IVP Q4HR PRN; Protocol PRN Reason: Anxiety Stop: 04/21/18 13:25 Last Admin: 02/22/18 23:17 Dose: 1 mg Miscellaneous (Probiotic Screen) 1 ea MC PRN PRN PRN Reason: PROTOCOL Stop: 04/26/18 12:27 Morphine Sulfate (Morphine) 1 mg IVP Q3H PRN PRN Reason: MODERATE PAIN Stop: 04/21/18 09:10 Last Admin: 02/22/18 10:07 Dose: 1 mg Morphine Sulfate (Morphine) 4 mg IV Q6HR PRN PRN Reason: Severe Pain Stop: 04/21/18 13:24 Last Admin: 02/26/18 02:35 Dose: 4 mg Nystatin (Mycostatin Cream) 1 appl TP DAILY YRN Stop: 04/22/18 08:59 Last Admin: 02/26/18 09:46 Dose: Not Given Ondansetron HCl (Zofran) 4 mg IV Q6H PRN PRN Reason: Nausea / Vomiting Stop: 04/21/18 09:13 Last Admin: 02/25/18 23:30 Dose: 4 mg General: no acute distress, well developed, well nourished HEENT: atraumatic, normocephalic, PERRLA, EOMI, moist mucous membrane Neck: supple, no thyromegaly Cardiovascular: S1S2, regular Lungs: clear to auscultation bilaterally, clear to percussion Abdomen: soft, bowel sounds (normoactive.), no tender, no distended, no mass, no rebound, no hepatomegaly Extremities: no cyanosis, no clubbing, no lines Neurological: awake, alert, oriented Skin: intact Infectious Disease Assmt/Plan - Assessment Assessment: 1. Neutropenia. 2. Anemia. 3. Cirrhosis. - Plan Plan: CPM. May discontinue antibiotic. Nutritional Asmnt/Malnutr-PDOC - Dietary Evaluation Malnutrition Findings (Please click <Entered> for more info): Nutritional Asmnt/Malnutrition Start: 02/20/18 15: 00 Text: Status: Complete Freq: Document 02/20/18 15:00 [facility] (Rec: 02/20/18 15:19 [facility] [id number]) Nutritional Asmnt/Malnutrition Patient General Information Nutritional Screening High Risk Diagnosis severe gastroenteritis, leukopenia, sepsis Pertinent Medical Hx/Surgical Hx HTN Subjective Information Pt seen sitting on bed at time of visit, awake and alert. Pt reported she had diffulculty of taking down food. She tried to consumed half of lunch tray. Pt reported some N/V after taking food. Pt has concern of nutrition intake. Offered pt Boost per pt request in the afternoon. Current Diet Order/ Nutrition Support [facility] chopped Pertinent Medications D5-0.45ns, zofran Pertinent Labs 02/20 glucose 107 Nutritional Hx/Data Height 1.68 m Height (Calculated Centimeters) 167.6 Current Weight (lbs) 55.338 kg Weight (Calculated Kilograms) 55.3 Weight (Calculated Grams) 24609.3 [place]rell Body Weight 130 Body Mass Index (BMI) 19.7 Weight Status Approriate GI Symptoms GI Symptoms Nausea Vomitting Last BM no record Difficult in: None Skin Integrity/Comment: facial abrasion and scars Current %PO Poor (25-49%) Estimated Nutritional Goals BEE in Kcals: Using Current wt Calories/Kcals/Kg 25-30 Kcals Calculated 4839-5555 Protein: Using Current wt Protein g/k-1.2 Protein Calculated 55-66 Fluid: ml 1375-1650ml (1ml/kcal) Nutritional Problem 1. Problem Problem inadequate food intake Etiology N/V Signs/Symptoms: PO intake <=50% Malnutrition Alert Protein-Calorie Malnutrition N/A Is there a minimum of two criteria No selected? Query Text:Check all the applicable criteria. A minimum of two criteria are recommended for diagnosis of either severe or non-severe malnutrition. Intervention/Recommendation Comments 1. Continue with current diet as ordered. If pt likes boost, will continue sending with meal tray. 2. Monitor PO intake, wt, labs and skin integrity 3. F/U as high risk in 2-3 days, 02/22-02/23 Expected Outcomes/Goals Expected Outcomes/Goals 1. PO intake to meet at least 75% of nutritional needs. 2. Wt stability, skin to heal, improved GI function, labs to approach WNL.
[2018-02-26] MEDS: D5-0.45NS 1,000 ML IV SCH (16:54)
[2018-02-27] MEDS: Morphine Sulfate 4 mg/mL 1mL Syr IV PRN (02:15)
[2018-02-27] MEDS: D5-0.45NS 1,000 ML IV SCH (02:15)
--- NOTE | 2018-02-27 03:00 | Operative Report ---
DATE OF SURGERY: 02/26/2018 PROCEDURE: 1. Esophagogastroscopy with biopsy. 2. Colonoscopy. PREPROCEDURE DIAGNOSES: 1. Abdominal pain. 2. Diarrhea. POSTPROCEDURE DIAGNOSES: 1. Upper endoscopy showing mild gastritis, status post biopsy and CLOtest; normal duodenum, status post biopsies to rule out celiac disease. 2. Colonoscopy showing fair bowel preparation; small internal haemorrhoids; exam otherwise negative up to terminal ileum. INDICATIONS: A 42-year-old female with lower abdominal pain and diarrhea undergoing an upper endoscopy and colonoscopy for further evaluation. CONSENT: Informed consent was obtained from the patient prior to procedure after explanation of risks, benefits, alternatives, including but not limited to infection, perforation and . SEDATION: Monitored anesthesia care by Dr. Grier. DESCRIPTION OF PROCEDURE AND FINDINGS: The procedure took place as an inpatient in the GI suite of [facility]. The patient was kept in a lithotomy position. Adequate sedation was achieved with above medications. Initially, an upper endoscopy was performed followed by colonoscopy. An Olympus diagnostic upper endoscope was advanced via the patient's mouth into the esophagus. Esophagus appeared normal with no evidence of esophagitis, stricture, or mass lesions. The Z line was normal appearing at 40 cm from the gums. Retroflexion stomach revealed no GE junction mass or varices. Mild gastritis was identified in the antrum, status post biopsies for CAROLYN test as well as pathology. The pyloric channel and duodenum up to 2nd portion appeared normal. Random biopsies were obtained from second portion to rule out celiac disease. The scope was withdrawn from the patient. The patient then repositioned and colonoscopy performed. Rectal examination revealed normal sphincter tone with no rectal masses. An Olympus colonoscope was advanced via the patient's anus and into the rectum with ease. It was advanced up to the cecum, which was visualized by landmarks of ileocecal valve and appendiceal orifice. The quality of the bowel preparation was fair. The scope was slowly withdrawn and underlying colonic mucosa in greater detail. The approximate scope withdrawal time from cecum to anus was about 8 minutes. Only small internal hemorrhoids were identified. No mass lesions, colitis or angiectasias or diverticula were identified. The scope was withdrawn from the patient. The patient tolerated the procedure well and no complications are anticipated. RECOMMENDATIONS: 1. Follow up biopsy results. 2. Diet as tolerated. 3. Disposition as per hospitalist. 4. We will sign off the case and see the patient as needed. Please call us with questions. Thank you, Dr. Razo for involving us in the care of your patient. If you have any further questions, please call us. JOB# [id number] ALON
[2018-02-27] MEDS: cefTRIAXone 1 GM in Sodium Chloride 0.9% 50 ML IV SCH (05:33)
--- NOTE | 2018-02-27 08:20 | Consultation ---
DATE OF CONSULTATION: 02/27/2018 PSYCHIATRIC CONSULT PATIENT'S AGE: 42-year-old. SEX: Female. PHYSICIAN: Dr. Razo. CHIEF COMPLAINT: Anxiety. HISTORY OF PRESENT ILLNESS: The patient is a 42-year-old female who was admitted to the hospital and the patient noted to be anxious and Dr. Razo has asked me to evaluate the patient. The patient has been anxious and slightly depressed. She also has been worried about her medical condition. The patient said that she has endometriosis and she has been in treatment in [facility] before. She has been feeling at times hopeless. The patient denies any intention to harm herself or others. She denies any thoughts of suicide or homicide. The patient is alert and oriented. PAST PSYCHIATRIC HISTORY: The patient denies any history of psychiatric problems. PAST MEDICAL HISTORY: The patient said that she has endometriosis. SOCIAL HISTORY: The patient is single, never and has no children. She denies any alcohol or drug use. The patient is currently homeless and has no place to live. ALLERGIES: No known allergies. MENTAL STATUS EXAM: The patient appears her stated age. Cooperative. Anxious. Mood not depressed nor elated. The patient denies any hallucinations or delusions. She denies any intention to harm herself or others. The patient is alert and oriented to time, place, person, and situation. Intact immediate, recent and remote memories. Fair insight and judgment. ASSESSMENT: PRIMARY DIAGNOSIS: Generalized anxiety disorder. TREATMENT PLAN: Monitor the patient's behavior. Supportive therapy. The patient is not suicidal or homicidal, and she can be discharged from the hospital when medically stable. Thanks to Dr. Razo. [facility]# [id number]
[2018-02-27] MEDS: Lactobacillus Rhamnosus GG 15 Billion CFU CAP.SPRINK PO SCH (08:41)
[2018-02-27] MEDS: Dicyclomine 10 mg Cap PO SCH (08:41)
--- NOTE | 2018-02-27 13:38 | Pathology Report ---
[id number] Collection date: 02/26/2018 Surgeon: Dr. Chandler Alexander Specimen Description: 1. Duodenum biopsy 2. Antrum biopsy Gross Description: Part I: Received in formalin are two holliday soft tissue fragments ranging from 0.1 to 0.2 cm in greatest dimension. Totally submitted in one cassette labeled A. Gross Description: Part II: Received in formalin are two holliday soft tissue fragments ranging from 0.1 to 0.2 cm in greatest dimension. Totally submitted in one cassette labeled B. Microscopic Description: Part I: The histologic sections show duodenal mucosa with intact intestinal villi, showing no evidence for villous abnormality. Diagnosis: Part I: No evidence for celiac disease / sprue (duodenal biopsy). Microscopic Description: Part II: The histologic sections show gastric mucosa with mild chronic inflammation present consisting of scattered lymphocytes and plasma cells. The Giemsa stain shows no evidence for Helicobacter pylori. Diagnosis: Part II: 1. Mild chronic gastritis, antrum biopsy. 2. The Giemsa stain is negative for Helicobacter pylori. [facility]# [id number] [facility]
== END 2018-02-27 10:30 | disposition short-term general hospital (02) | DRG 720 ==
LOC: ER 03:53 → MSI 06:40
PROVIDERS: ADMIT Internal Medicine; ATTEND Internal Medicine
PROC: 0DB98ZX Excision of Duodenum, Via Natural or Artificial Opening Endoscopic, Diagnostic (ICD-10-PCS; principal; 2018-02-26)
PROC: 0DB68ZX Excision of Stomach, Via Natural or Artificial Opening Endoscopic, Diagnostic (ICD-10-PCS; 2018-02-26)
PROC: 0DJD8ZZ Inspection of Lower Intestinal Tract, Via Natural or Artificial Opening Endoscopic (ICD-10-PCS; 2018-02-26)
DX: A41.9 Sepsis, unspecified organism (principal); D70.9 Neutropenia, unspecified; K74.60 Unspecified cirrhosis of liver; D64.9 Anemia, unspecified; K52.9 Noninfective gastroenteritis and colitis, unspecified; R63.4 Abnormal weight loss; Z53.29 Procedure and treatment not carried out because of patient's decision for other reasons; B34.9 Viral infection, unspecified; K64.8 Other hemorrhoids; F32.9 Major depressive disorder, single episode, unspecified; E86.0 Dehydration; F41.1 Generalized anxiety disorder; I10 Essential (primary) hypertension; Z88.6 Allergy status to analgesic agent; Z88.8 Allergy status to other drugs, medicaments and biological substances; Z82.49 Family history of ischemic heart disease and other diseases of the circulatory system; Z59.0 Homelessness; Z71.89 Other specified counseling; Z68.22 Body mass index [BMI] 22.0-22.9, adult
CPT/HCPCS: 36415-UA; 71045-TC; 76700-TC; 80048-TC; 80053-TC; 80074-90; 80076-TC; 80307; 80320-TC; 81001-TC; 81025-TC; 82150-TC; 83605; 83690-TC; 84703-TC; 85007-TC; 85025-TC; 85027-TC; 85610-TC; 86592-TC; 86703-TC; 86780-90; 86850-TC; 86900-TC; 86901-TC; 87086-90; 87338-TC; 96375; J0696; J2060; J2405; J2704; J7030; Z7610